=== PATIENT | female | born 1985 | race Caucasian/White ===

== ENCOUNTER 2016-11-28 08:28 | Emergency (ER) | payer MEDICAID ==
[2016-11-28] MEDS ORDERED: ONDANSETRON 4 MG TAB.RAPDIS PO ONE (09:56)
[2016-11-28] MEDS ORDERED: OXYCODONE-ACETAMINOPHEN 5-325 MG TABLET PO ONE (09:56)
[2016-11-28] MEDS ORDERED: DEXAMETHASONE SOD PHOS INJ 10 MG/1 ML VIAL IM ONE (09:57)
--- NOTE | 2016-11-28 10:01 | ER Document Report ---
ED General - General Chief Complaint: Hip Pain Stated Complaint: HIP PAIN Time seen by provider: 09:58 Mode of Arrival: Ambulatory Information source: Patient Notes: This is a 31-year-old female with a history of migraines, sciatica and bursitis of the right hip. Patient presents to the emergency room with an exacerbation of her right hip pain over the last 5 days. She also complains of a migraine. Patient denies any fever, chills. She does endorse nausea without vomiting. Patient denies any recent injuries. Patient denies any photophobia or neck stiffness. Patient denies any urinary retention, urinary or fecal incontinence. Patient denies any sensory loss to the saddle area or to the lower extremities. TRAVEL OUTSIDE OF THE [place] IN LAST 30 DAYS: No - HPI Onset: Last week Onset/Duration: Gradual Quality of pain: Dull Severity: Moderate Pain Level: 2 Associated symptoms: Headache, Nausea. denies: Chills, Fever, Vomiting Exacerbated by: Movement Relieved by: Remaining still Similar symptoms previously: Yes Recently seen / treated by doctor: No - Related Data Allergies/Adverse Reactions: cyclobenzaprine HCl [From Flexeril] Allergy (Verified 11/28/16 08:36) fluoxetine HCl [From Prozac] Allergy (Verified 11/28/16 08:36) ibuprofen [Ibuprofen] Allergy (Verified 11/28/16 08:36) ketorolac tromethamine [From Toradol] Allergy (Verified 11/28/16 08:36) prochlorperazine edisylate [From Compazine] Allergy (Verified 11/28/16 08:36) prochlorperazine maleate [From Compazine] Allergy (Verified 11/28/16 08:36) promethazine HCl [From Phenergan] Allergy (Verified 11/28/16 08:36) tramadol HCl [From Ultram] Allergy (Verified 11/28/16 08:36) Past Medical History - General Information source: Patient - Social History Smoking Status: Current Every Day Smoker Cigarette use (# per day): Yes - 1 pack per day Chew tobacco use (# tins/day): No Frequency of alcohol use: None Drug Abuse: None Lives with: Family Family History: Reviewed & Not Pertinent Patient has suicidal ideation: No Patient has homicidal ideation: No Pulmonary Medical History: Reports: Hx Asthma - as a child Neurological Medical History: Reports: Hx Migraine Renal/ Medical History: Denies: Hx Peritoneal Dialysis Psychiatric Medical History: Reports: Hx Anxiety, Hx Bipolar Disorder, Hx Depression Past Surgical History: Reports: Hx Oral Surgery, Hx Tubal Ligation. Denies: Hx Pacemaker - Immunizations Hx Diphtheria, Pertussis, Tetanus Vaccination: Yes Review of Systems - Review of Systems Notes: Review of systems: Constitutional: Denies fever, chills. EENT: Denies ear pain, sinus tenderness, throat pain, throat swelling. Cardiovascular: Denies chest pain, palpitations, dyspnea or edema. Respiratory: Denies wheezing, cough, hemoptysis. Abdomen: Denies abdominal pain, nausea, vomiting, diarrhea. Denies BRBPR or melena. Genitourinary: Denies dysuria, pyuria, hematuria, flank pain. Musculoskeletal: See H&P. Neurologic: Positive for headache. Denies photophobia, neck stiffness, weakness. Denies loss of bowel or bladder function. Denies saddle anesthesia. Skin: Denies rash, lesions. Physical Exam - Vital signs Vitals: Temp Pulse Resp BP Pulse Ox 98.0 F 72 16 132/70 H 98 11/28/16 08:37 11/28/16 08:37 11/28/16 08:37 11/28/16 08:37 11/28/16 08:37 Notes: Physical exam: GENERAL: 31-year-old female, alert and oriented 3, no acute distress. HEAD: Atraumatic, normocephalic. EYES: Pupils equal round and reactive to light, extraocular movements intact, sclera anicteric, conjunctiva are normal. ENT: TMs normal, nares patent, oropharynx clear without exudates. Moist mucous membranes. NECK: Normal range of motion, supple without lymphadenopathy or JVD. LUNGS: Breath sounds clear to auscultation bilaterally and equal. No wheezes rales or rhonchi. HEART: Regular rate and rhythm without murmurs, rubs or gallops. ABDOMEN: Soft, normoactive bowel sounds. No tenderness to palpation. No guarding, no rebound. No masses appreciated. Back: Patient does have right paraspinal lower lumbar tenderness to palpation. There is no bony focal tenderness. There is no crepitus, step offs or skin changes in that area. EXTREMITIES: Patient does have pain with range of motion of the right hip. She does have some tenderness to palpation over the right greater trochanter. There is no erythema, warmth or swelling over the area. Distal sensation to the right lower extremity is good. The Refill to the right lower extremity is good. NEUROLOGICAL: Cranial nerves II through XII grossly intact. Normal speech, motor 5 over 5, the patient's neck is supple. She has no photophobia. PSYCH: Normal mood, normal affect. SKIN: Warm, Dry, normal turgor, no rashes or lesions noted. Course - Vital Signs Vital signs: Temp Pulse Resp BP Pulse Ox 98.0 F 72 16 132/70 H 98 11/28/16 08:37 11/28/16 08:37 11/28/16 08:37 11/28/16 08:37 11/28/16 08:37 - Diagnostic Test Radiology reviewed: Image reviewed, Reports reviewed - X-rays of the lumbar spine and right hip show no acute bony injury Discharge - Discharge Clinical Impression: radiculopathy, Pre-hypertension, migraine Condition: Stable Disposition: HOME, SELF-CARE Instructions: Radiculopathy ([facility]), Bursitis ([facility]), Oral Narcotic Medication ( [facility]) Additional Instructions: Recommendations: When you're able, follow-up with Dr. Robertson of orthopedics. Take Medrol Dosepak as prescribed. Take the Percocet as needed. See the narcotic instruction sheet. Take Zofran for nausea. The pain medicine you're taking prescribed as a narcotic. There are several important things you should know about this medicine: 1. This medicine contains Tylenol: It is important that you do not take Tylenol (or acetaminophen) while on this medicine. Tylenol is metabolized by the liver and taking too much Tylenol (acetaminophen) can lay to liver damage and even liver failure. 2. Taking narcotics for too long can lead to physical and mental dependence. Take this medicine only if really needed and in the lowest quantity to achieve pain relief. 3. Do not drink alcohol while on this medicine. Alcohol interacts with narcotics and the combination can be dangerous. 4. Do not drive or operate machinery while on this medicine. 5. Narcotics do cause constipation, so drink plenty of fluids and daily stool softeners. Regarding Blood Pressure: Your blood pressure was noted to be greater than 120/80 at least once in the emergency room today. It is recommended that you follow-up with her primary care physician in the next week for repeat blood pressure check. The Centers for Medicare and Medicaid Services has specific recommendations regarding a person's blood pressure. There are several lifestyle modifications that are recommended in order to help lower your blood pressure. These include: Quitting smoking if you smoke. Reducing the amount of sodium in your diet. Getting regular exercise Limiting alcohol to no more than 2 drinks a day for men and one drink a day for women. Eating a healthy diet, including more fruits and vegetables, low fat dairy products, less saturated and total fat. Losing weight if you are overweight. FOLLOW-UP: Call your doctor's office and let them know your blood pressure was elevated and you were advised to get your blood pressure checked in the above time-line. If you are unable to get into your doctor's office in this time period, you can follow-up with a new physician (I have left the numbers below for a few primary care doctors affiliated with this [facility]) or return to the ER. PRIMARY CARE PHYSICIANS: Dr. Sonia Pacheco [address], [place] [address] [phone] Dr Heller Address: [address] [place] [address] , [place] [address] Dr Hanson Address: [address] [place] [address] , [place] [address] Prescriptions: Methylprednisolone [Medrol 4 mg Dosepack 21 Tab/Pack] 4 mg PO ASDIR PRN #21 tab.ds.pk PRN Reason: Ondansetron HCl [Zofran 4 mg Tablet] 1 - 2 tab PO Q4H PRN #10 tablet PRN Reason: Oxycodone HCl/Acetaminophen [Percocet 5-325 mg Tablet] 1 - 2 tab PO ASDIR PRN # 25 tablet PRN Reason: Forms: Elevated Blood Pressure Referrals: DAVID ROBERTSON MD [ACTIVE STAFF] - Follow up as needed
[2016-11-28] MEDS ORDERED: ONDANSETRON ODT 4 MG TAB (6 TAB/DSPK) PO PRN (12:15)
[2016-11-28 12:34] VITALS: BP 113/80
== END 2016-11-28 12:30 | disposition home or self-care (01) ==
LOC: ER 08:28
DX: M54.10 Radiculopathy, site unspecified (principal); M25.551 Pain in right hip; R03.0 Elevated blood-pressure reading, without diagnosis of hypertension; G43.909 Migraine, unspecified, not intractable, without status migrainosus; F17.210 Nicotine dependence, cigarettes, uncomplicated
CPT/HCPCS: 99283; 96372; 73502; 72110; S0119; J1100

== ENCOUNTER → 2016-12-22 | Outpatient (CLI) | payer MEDICAID | LOC: RAD 11:42 | PROVIDERS: ATTEND Family Medicine | DX: M25.552 Pain in left hip (principal) ==

== ENCOUNTER 2017-01-08 10:22 | Emergency (ER) | payer MEDICAID ==
[2017-01-08] MEDS ORDERED: ONDANSETRON 4 MG TAB.RAPDIS PO ONE (10:54)
[2017-01-08] MEDS ORDERED: ACETAMINOPHEN WITH CODEINE #3 TABLET PO ONE (10:55)
--- NOTE | 2017-01-08 10:56 | ER Document Report ---
HPI - HPI Patient complains to provider of: headache, sore throat Onset: Other - 3 days Onset/Duration: Gradual Quality of pain: Pressure Pain Level: 4 Context: Patient complains of headache across forehead area, left ear pain for the past 3 days. Patient reports sore throat that started yesterday. Patient does complain of some chills but no fever. Patient does report that her son has been sick recently with upper respiratory symptoms. Patient does report chronic frequent headaches occurring about 3-4 times a week. Patient does have an appointment with her doctor in 2 days. Patient states this headache is typical of her frequent headaches that she gets. Patient denies any head injury. Patient denies any IV drug use. Associated Symptoms: Chills, Earache, Headache, Sore throat. denies: Fever, Vomiting, Rhinnorhea Exacerbated by: Denies Relieved by: Denies Similar symptoms previously: Yes Recently seen / treated by doctor: No - ROS ROS below otherwise negative: Yes Systems Reviewed and Negative: Yes All other systems reviewed and negative - CONSTITUTIONAL Constitutional: REPORTS: Chills. DENIES: Fever - EENT EENT: REPORTS: Sore Throat, Ear Pain - NEURO Neurology: REPORTS: Headache. DENIES: Weakness - RESPIRATORY Respiratory: DENIES: Coughing - GASTROINTESTINAL Gastrointestinal: DENIES: Nausea, Patient vomiting, Diarrhea - REPRODUCTIVE Reproductive: DENIES: : - MUSCULOSKELETAL Musculoskeletal: DENIES: Extremity pain, Back Pain, Neck Pain - DERM Skin Color: Normal Skin Problems: None Past Medical History - General Information source: Patient - Social History Smoking Status: Never Smoker Drug Abuse: None Occupation: food and beverage coordinator Lives with: Family Family History: Reviewed & Not Pertinent Patient has suicidal ideation: No Patient has homicidal ideation: No Pulmonary Medical History: Reports: Hx Asthma - as a child Neurological Medical History: Reports: Hx Migraine Renal/ Medical History: Denies: Hx Peritoneal Dialysis Psychiatric Medical History: Reports: Hx Anxiety, Hx Bipolar Disorder, Hx Depression Past Surgical History: Reports: Hx Oral Surgery, Hx Tubal Ligation. Denies: Hx Pacemaker - Immunizations Hx Diphtheria, Pertussis, Tetanus Vaccination: Yes Vertical Provider Document - CONSTITUTIONAL Agree With Documented VS: Yes Exam Limitations: No Limitations General Appearance: WD/WN, No Apparent Distress - INFECTION CONTROL TRAVEL OUTSIDE OF THE [place] IN LAST 30 DAYS: No - HEENT HEENT: Atraumatic, Normocephalic, PERRLA, Pharyngeal Tenderness. negative: Pharyngeal Exudate, Pharyngeal Erythema, Tympanic Membrane Red, Tympanic Membrane Bulging - NECK Neck: Normal Inspection, Supple, Other - No meningismus. negative: Lymphadenopathy-Left, Lymphadenopathy-Right - RESPIRATORY Respiratory: Breath Sounds Normal, No Respiratory Distress, Chest Non-Tender O2 Sat by Pulse Oximetry: 100 - CARDIOVASCULAR Cardiovascular: Regular Rate, Regular Rhythm, No Murmur - BACK Back: Normal Inspection. negative: CVA Tenderness-Right, CVA Tenderness-Left - MUSCULOSKELETAL/EXTREMETIES Musculoskeletal/Extremeties: MAEW, FROM - NEURO Level of Consciousness: Awake, Alert, Appropriate Motor/Sensory: No Motor Deficit - DERM Integumentary: Warm, Dry, No Rash Course - Re-evaluation Re-evalutation: 01/08/17 11:51 Patient reports that headache pain is improved as well as nausea. Discussed worsening signs or symptoms that patient should return immediately for. Patient advised that she will need to see a neurologist for further evaluation of her chronic headaches. Patient verbalized understanding agrees with treatment plan.The patient presents with headache without signs of SURGICAL SERVICES ASSISTANT bleed, stroke, infection, or other serious etiology. The patient is neurologically intact. Given the extremely low risk of these diagnoses further testing and evaluation for these possibilities does not appear to be indicated at this time. The patient has been instructed to return if the symptoms worsen or change in any way. - Vital Signs Vital signs: Temp Pulse Resp BP Pulse Ox 97.9 F 77 16 134/91 H 100 01/08/17 10:25 01/08/17 10:25 01/08/17 10:25 01/08/17 10:25 01/08/17 10:25 Discharge - Discharge Clinical Impression: Sore throat Headache Qualifiers: Headache type: unspecified Headache chronicity pattern: chronic headache Intractability: not intractable Qualified Code(s): R51 - Headache Condition: Stable Disposition: HOME, SELF-CARE Instructions: Sore Throat ([facility]), Headache ([facility]), Nausea or Vomiting, Nonspecific ([facility]) Additional Instructions: Return immediately for any new or worsening symptoms Followup with your primary care provider, call tomorrow to make a followup appointment Stay well-hydrated Follow-up with a neurologist for further evaluation of your chronic headache pain Prescriptions: Acetaminophen with Codeine [Acetaminophen-Cod #3 Tablet] 1 each PO Q6 PRN #10 tablet PRN Reason: Ondansetron HCl [Zofran 4 mg Tablet] 1 - 2 tab PO Q6 PRN #15 tablet PRN Reason: Forms: Return to Work Referrals: MICHELLE CHARLES MD [ACTIVE STAFF] - Follow up in 3-5 days
[2017-01-08 12:10] VITALS: BP 126/73
== END 2017-01-08 12:08 | disposition home or self-care (01) ==
LOC: ER 10:22
DX: R51 Headache (principal); H92.02 Otalgia, left ear; J02.9 Acute pharyngitis, unspecified; R68.83 Chills (without fever); R11.0 Nausea
CPT/HCPCS: 99283; 87070; 87880; S0119

== ENCOUNTER 2017-01-28 13:17 | Emergency (ER) | payer MEDICAID ==
[2017-01-28 13:21] VITALS: BP 136/97
--- NOTE | 2017-01-28 13:35 | ER Document Report ---
ED Medical Screen (RME) - General TRAVEL OUTSIDE OF THE [place]. IN LAST 30 DAYS: No <DOMINIK LINDSEY - Last Filed: 01/28/17 13:34> - General Information source: Patient - HPI Onset: Just prior to arrival Quality of pain: No pain Associated Symptoms: None Exacerbated by: Denies Similar symptoms previously: Yes <SHIREEN LIND - Last Filed: 01/28/17 15:09> - General Chief Complaint: Headache Stated Complaint: HEADACHE,NAUSEA Time Seen by Provider: 01/28/17 13:22 Notes: 31-year-old female patient complains onset of migraine headache last night, got worse today about noon. She reports nausea vomiting. Also complains of pain in the ribs. I have greeted and performed a rapid initial assessment of this patient. A comprehensive ED assessment and evaluation of the patient, analysis of test results and completion of the medical decision making process will be conducted by additional ED providers. (DOMINIK LINDSEY) - Related Data Allergies/Adverse Reactions: cyclobenzaprine HCl [From Flexeril] Allergy (Verified 01/28/17 13:21) fluoxetine HCl [From Prozac] Allergy (Verified 01/28/17 13:21) ibuprofen [Ibuprofen] Allergy (Verified 01/28/17 13:21) ketorolac tromethamine [From Toradol] Allergy (Verified 01/28/17 13:21) prochlorperazine edisylate [From Compazine] Allergy (Verified 01/28/17 13:21) prochlorperazine maleate [From Compazine] Allergy (Verified 01/28/17 13:21) promethazine HCl [From Phenergan] Allergy (Verified 01/28/17 13:21) tramadol HCl [From Ultram] Allergy (Verified 01/28/17 13:21) Past Medical History - Social History Chew tobacco use (# tins/day): No Frequency of alcohol use: Occasional Drug Abuse: None Pulmonary Medical History: Reports: Hx Asthma - as a child Neurological Medical History: Reports: Hx Migraine Renal/ Medical History: Denies: Hx Peritoneal Dialysis Psychiatric Medical History: Reports: Hx Anxiety, Hx Bipolar Disorder, Hx Depression Past Surgical History: Reports: Hx Oral Surgery, Hx Tubal Ligation. Denies: Hx Pacemaker - Immunizations Hx Diphtheria, Pertussis, Tetanus Vaccination: Yes <CÉSARKAIN CandelariaDOMINIK - Last Filed: 01/28/17 13:34> - General Information source: Patient - 31-year-old female presents to the emergency room today stating she had a migraine behind the left eye she has history of migraines has been feels similar. <SHIREEN LIND - Last Filed: 01/28/17 15:09> Review of Systems - Review of Systems Constitutional: No symptoms reported EENT: No symptoms reported Cardiovascular: No symptoms reported Respiratory: No symptoms reported Gastrointestinal: No symptoms reported Genitourinary: No symptoms reported Female Genitourinary: No symptoms reported Musculoskeletal: No symptoms reported Skin: No symptoms reported Hematologic/Lymphatic: No symptoms reported Neurological/Psychological: No symptoms reported <SHIREEN LIND - Last Filed: 01/28/17 15:09> Physical Exam - Vital signs Interpretation: Normal - General General appearance: Appears well, Alert - HEENT Head: Normocephalic, Atraumatic Eyes: Normal Pupils: PERRL - Respiratory Respiratory status: No respiratory distress Chest status: Nontender Breath sounds: Normal Chest palpation: Normal - Cardiovascular Rhythm: Regular Heart sounds: Normal auscultation Murmur: No - Abdominal Inspection: Normal Distension: No distension Bowel sounds: Normal Tenderness: Nontender Organomegaly: No organomegaly - Back Back: Normal, Nontender - Extremities General upper extremity: Normal inspection, Nontender, Normal color, Normal ROM , Normal temperature General lower extremity: Normal inspection, Nontender, Normal color, Normal ROM , Normal temperature, Normal weight bearing. No: Shanda's sign - Neurological Neuro grossly intact: Yes Cognition: Normal Orientation: AAOx4 Aamir Coma Scale Eye Opening: Spontaneous Aamir Coma Scale Verbal: Oriented [place] Coma Scale Motor: Obeys Commands Aamir Coma Scale Total: 15 Speech: Normal Motor strength normal: LUE, RUE, LLE, RLE Sensory: Normal - Psychological Associated symptoms: Normal affect, Normal mood - Skin Skin Temperature: Warm Skin Moisture: Dry Skin Color: Normal <SHIREEN LIND - Last Filed: 01/28/17 15:09> - Vital signs Vitals: Temp Pulse Resp BP Pulse Ox 97.6 F 83 14 136/97 H 96 01/28/17 13:18 01/28/17 13:18 01/28/17 13:18 01/28/17 13:18 01/28/17 13:18 Course <DOMINIK LINDSEY - Last Filed: 01/28/17 13:34> - Diagnostic Test Radiology reviewed: Image reviewed, Reports reviewed <SHIREEN LIND - Last Filed: 01/28/17 15:09> - Re-evaluation Re-evalutation: 01/28/17 15:06 No fever no nausea no vomiting C2 through 12 intact pupils equally round react light and accommodation. No petechiae. (SHIREEN LIND) - Vital Signs Vital signs: Temp Pulse Resp BP Pulse Ox 97.6 F 83 14 136/97 H 96 01/28/17 13:18 01/28/17 13:18 01/28/17 13:18 01/28/17 13:18 01/28/17 13:18 Doctor's Discharge <DOMINIK LINDSEY - Last Filed: 01/28/17 13:34> <SHIREEN LIND - Last Filed: 01/28/17 15:09> - Discharge Clinical Impression: Migraine Qualifiers: Migraine type: with aura Status migrainosus presence: without status migrainosus Intractability: intractable Qualified Code(s): G43.119 - Migraine with aura, intractable, without status migrainosus Disposition: HOME, SELF-CARE Instructions: Joanie ([facility]) Additional Instructions: migraine Headache The physician does not feel that the headache you are experiencing has a serious underlying cause. Most headaches are due to emotional stress, with resultant muscle tension (tension headache). Occasionally, headaches are secondary to changes in the blood vessels of the scalp (vascular headache and migraine headache). Sometimes, a headache is the first symptom of another developing illness, such as a viral infection. You have no evidence of stroke, bleeding, meningitis, or other serious cause of your headache. The treatment of headaches varies with the severity and cause of the pain. Not all headaches need pain shots. In fact, there is evidence that using narcotics for headaches may make them worse in the long run. The physician will determine the therapy that's in your best interest. If you develop a fever, if the headache is different from any you've previously experienced, or if the headache progressively worsens, then call your physician at once or go to the emergency room.
--- NOTE | 2017-01-28 14:40 | RADIOLOGY REPORT (SQ) ---
EXAM DESCRIPTION: CT HEAD WITHOUT COMPLETED DATE/TIME: 01/28/2017 2:28 pm REASON FOR STUDY: PAIN DIFFEREN THAN USSUAL SEQUELLA COMPARISON: 06/15/2016. TECHNIQUE: Axial images acquired through the brain without intravenous contrast. Images reviewed wi th bone, brain and subdural windows. Images stored on PACS. All CT scanners at this facility use dose modulation, iterative reconstruction, and/or weight based d osing when appropriate to reduce radiation dose to as low as reasonably achievable (ALARA). [facility]: Dose Right [facility]: CareDose [facility]: Dose Right [facility]: Teradose 4D [facility]: Loco2 RADIATION DOSE: 64.61 mGy. LIMITATIONS: None. FINDINGS: VENTRICLES: Normal size and contour. CEREBRUM: No masses. No hemorrhage. No midline shift. Normal benitez/white matter differentiation. N o evidence for acute infarction. CEREBELLUM: No masses. No hemorrhage. No alteration of density. No evidence for acute infarction. EXTRAAXIAL SPACES: No fluid collections. No masses. ORBITS AND GLOBE: No intra- or extraconal masses. Normal contour of globe without masses. CALVARIUM: No fracture. PARANASAL SINUSES: Mucosal nodule in the left maxillary sinus. Mucous membrane thickening in the eth moid sinuses. SOFT TISSUES: No mass or hematoma. OTHER: No other significant finding. IMPRESSION: NORMAL BRAIN CT WITHOUT CONTRAST. CHRONIC SINUS DISEASE. TECHNICAL DOCUMENTATION: JOB ID: [id number] Quality ID # [id number]: Final reports with documentation of one or more dose reduction techniques (e.g., Au tomated exposure control, adjustment of the mA and/or kV according to patient size, use of iterative reconstruction technique) 2010 [employer]- All Rights Reserved
[2017-01-28] MEDS ORDERED: METHOCARBAMOL 500 MG TABLET PO ONE (15:09)
== END 2017-01-28 15:39 | disposition home or self-care (01) ==
LOC: ER 13:17
DX: G43.119 Migraine with aura, intractable, without status migrainosus (principal); R11.2 Nausea with vomiting, unspecified; R07.81 Pleurodynia; Z88.8 Allergy status to other drugs, medicaments and biological substances; Z88.6 Allergy status to analgesic agent; Z88.5 Allergy status to narcotic agent
CPT/HCPCS: 70450; 99283

== ENCOUNTER 2017-03-24 18:59 | Emergency (ER) | payer MEDICAID ==
--- NOTE | 2017-03-24 19:27 | ER Document Report ---
ED Medical Screen (RME) - General Chief Complaint: Chest Pain Stated Complaint: CHEST DISCOMFORT, NUMBNESS Time Seen by Provider: 03/24/17 19:16 Mode of Arrival: Ambulatory Information source: Patient TRAVEL OUTSIDE OF THE [place] IN LAST 30 DAYS: No - HPI Onset: Just prior to arrival - 1800 HRS. Onset/Duration: Sudden Context: WAS LYING DOWN Quality of pain: Other - "SUFFOCATING, HEAVINESS" Severity: Moderate Associated Symptoms: Dizzy/lightheaded, Shortness of breath. denies: Chills, Cough (productive), Fever, Nausea, Sweating Exacerbated by: Supine Relieved by: Sitting, Standing Similar symptoms previously: No Recently seen / treated by doctor: No - Related Data Smoking: Cigarettes, Less than 1 pack/day Frequency of alcohol use: Occasional Drug Abuse: None Allergies/Adverse Reactions: cyclobenzaprine HCl [From Flexeril] Allergy (Verified 01/28/17 13:21) fluoxetine HCl [From Prozac] Allergy (Verified 01/28/17 13:21) ibuprofen [Ibuprofen] Allergy (Verified 01/28/17 13:21) ketorolac tromethamine [From Toradol] Allergy (Verified 01/28/17 13:21) prochlorperazine edisylate [From Compazine] Allergy (Verified 01/28/17 13:21) prochlorperazine maleate [From Compazine] Allergy (Verified 01/28/17 13:21) promethazine HCl [From Phenergan] Allergy (Verified 01/28/17 13:21) tramadol HCl [From Ultram] Allergy (Verified 01/28/17 13:21) Past Medical History - General Information source: Patient - Social History Chew tobacco use (# tins/day): No Frequency of alcohol use: Rare Drug Abuse: None Lives with: Family Family history: None - Past Medical History Cardiac Medical History: Reports: None Pulmonary Medical History: Reports: Hx Asthma - as a child Neurological Medical History: Reports: Hx Migraine Endocrine Medical History: Reports: None Renal/ Medical History: Reports: None. Denies: Hx Peritoneal Dialysis Malignancy Medical History: Reports: None GI Medical History: Reports: None Musculoskeltal Medical History: Reports Hx Arthritis - LOW BACK Psychiatric Medical History: Reports: Hx Anxiety, Hx Bipolar Disorder, Hx Depression Past Surgical History: Reports: Hx Oral Surgery, Hx Tubal Ligation. Denies: Hx Pacemaker - Immunizations Hx Diphtheria, Pertussis, Tetanus Vaccination: Yes Review of Systems - Review of Systems Constitutional: Weakness. denies: Chills, Diaphoresis, Fever EENT: No symptoms reported Cardiovascular: See HPI Respiratory: See HPI Gastrointestinal: No symptoms reported Genitourinary: No symptoms reported Musculoskeletal: See HPI Skin: No symptoms reported Neurological/Psychological: No symptoms reported Physical Exam - Vital signs Vitals: Temp Pulse Resp BP Pulse Ox 98 F 80 20 115/77 99 03/24/17 19:09 03/24/17 19:09 03/24/17 19:03/24/17 19:03/24/17 19:09 Interpretation: Normal - General General appearance: Appears well, Alert In distress: None - HEENT Head: Normocephalic Eyes: Normal Conjunctiva: Normal Ears: Normal Nasal: Normal Mouth/Lips: Normal Mucous membranes: Normal - Respiratory Respiratory status: No respiratory distress Breath sounds: Normal - Cardiovascular Rhythm: Regular Heart sounds: Normal auscultation Murmur: No - Abdominal Inspection: Normal Distension: No distension - Back Back: Normal - Extremities General upper extremity: Normal inspection General lower extremity: Normal inspection. No: Tender, Edema - Neurological Neuro grossly intact: Yes Cognition: Normal Orientation: AAOx4 - Psychological Associated symptoms: Normal affect, Normal mood - Skin Skin Temperature: Warm Skin Moisture: Dry Skin Color: Normal Skin Turgor: Elastic Course - Vital Signs Vital signs: Temp Pulse Resp BP Pulse Ox 98 F 80 20 115/77 99 03/24/17 19:09 03/24/17 19:09 03/24/17 19:03/24/17 19:03/24/17 19:09
[2017-03-24 19:43] LABS: ABSOLUTE BASOPHILS # (AUTO) 0.1 10^3/uL (0.0-0.2); ABSOLUTE EOSINOPHILS # (AUTO) 0.2 10^3/uL (0.0-0.6); ABSOLUTE LYMPHOCYTES (AUTO) 2.6 10^3/uL (0.5-4.7); ABSOLUTE MONOCYTES (AUTO) 0.9 10^3/uL (0.1-1.4); BASOPHILS % (AUTO) 0.8 % (0-2); EOSINOPHILS % (AUTO) 1.4 % (0-6); HEMATOCRIT 39.6 % (36.0-47.0); HEMOGLOBIN 13.5 g/dL (12.0-15.5); HGB HCT DIFFERENCE 0.9; LYMPHOCYTES % (AUTO) 21.8 % (13-45); MEAN CORPUSCULAR HEMOGLOBIN 31.9 pg (27.0-33.4); MEAN CORPUSCULAR HGB CONC 34.1 g/dL (32.0-36.0); MEAN CORPUSCULAR VOLUME 94 fl (80-97); RED BLOOD COUNT 4.23 10^6/uL (3.72-5.28); RED CELL DISTRIBUTION WIDTH 12.5 % (11.5-14.0); WHITE BLOOD COUNT 11.8 10^3/uL (4.0-10.5)
[2017-03-24 19:49] LABS: APPEARANCE,URINE SLIGHTLY-CLOUDY; BILIRUBIN,URINE NEGATIVE (NEGATIVE); GLUCOSE, URINE NEGATIVE (NEGATIVE); KETONES,URINE NEGATIVE (NEGATIVE); LEUKOCYTE ESTERASE,URINE SMALL (NEGATIVE); NITRITE,URINE NEGATIVE (NEGATIVE); PROTEIN,URINE NEGATIVE (NEGATIVE); URINE SPECIFIC GRAVITY 1.025
[2017-03-24 19:58] LABS: ALANINE AMINOTRANSFERASE 38 U/L (9-52); ALBUMIN 4.3 g/dL (3.5-5.0); ALKALINE PHOSPHATASE 57 U/L (38-126); ANION GAP 11 (5-19); ASPARTATE AMINO TRANSFERASE 24 U/L (14-36); BILIRUBIN,DIRECT 0.3 mg/dL (0.0-0.4); BILIRUBIN,TOTAL 0.7 mg/dL (0.2-1.3); BLOOD UREA NITROGEN 12 mg/dL (7-20); CALCIUM 9.9 mg/dL (8.4-10.2); CARBON DIOXIDE 23 mmol/L (22-30); CHLORIDE 107 mmol/L (98-107); CREATINE KINASE 79 U/L (30-135); CREATININE RESULT 0.73 mg/dL (0.52-1.25); GLUCOSE 89 mg/dL (75-110); POTASSIUM 4.1 mmol/L (3.6-5.0); SODIUM 140.9 mmol/L (137-145); TOTAL PROTEIN 7.8 g/dL (6.3-8.2)
[2017-03-24 20:12] LABS: CREATINE KINASE MB < 0.22 ng/mL (<4.55); TROPONIN I < 0.012 ng/mL
--- NOTE | 2017-03-24 20:28 | RADIOLOGY REPORT (SQ) ---
EXAM DESCRIPTION: CHEST PA/LAT COMPLETED DATE/TIME: 03/24/2017 7:57 pm REASON FOR STUDY: CHEST PAIN, PALPITATIONS, NEAR-SYNCOPE COMPARISON: None. EXAM PARAMETERS: NUMBER OF VIEWS: two views TECHNIQUE: Digital Frontal and Lateral radiographic views of the chest acquired. RADIATION DOSE: NA LIMITATIONS: none FINDINGS: LUNGS AND PLEURA: No opacities, masses or pneumothorax. No pleural effusion. MEDIASTINUM AND HILAR STRUCTURES: No masses or contour abnormalities. HEART AND VASCULAR STRUCTURES: Heart normal size. No evidence for failure. BONES: No acute findings. HARDWARE: None in the chest. OTHER: No other significant finding. IMPRESSION: NO SIGNIFICANT RADIOGRAPHIC FINDING IN THE CHEST. TECHNICAL DOCUMENTATION: JOB ID: [id number] [employer]- All Rights Reserved
[2017-03-24] MEDS ORDERED: METOCLOPRAMIDE HCL ORAL SOLN 10 MG/10 ML UDCUP PO ONE (20:48)
[2017-03-24] MEDS ORDERED: LIDOCAINE 2% VISCOUS SOLN 20 ML UDCUP PO ONE (20:48)
[2017-03-24] MEDS ORDERED: MAG HYDROX/AL HYDROX/SIMETH SUSP 30 ML UDCUP PO ONE (20:48)
--- NOTE | 2017-03-24 20:50 | ER Document Report ---
ED General - General Chief Complaint: Chest Pain Stated Complaint: CHEST DISCOMFORT, NUMBNESS Time Seen by Provider: 03/24/17 19:16 Mode of Arrival: Ambulatory Notes: Patient is a 31-year-old female who presents with multiple concerns but her primary concern appears to be in intermittent episodic chest pain that occurs mostly when she lies down. Patient states that she [employer] rest night she began to develop a diffuse chest wall pressure and burning. Nothing improves or worsens that pain. She has recurrently had the symptoms over the last 2 weeks and decided to get evaluated today. Patient also relates a history of frequent intermittent paresthesias in the entirety of her body but denies that this is the reason she came to the emergency department today. She has not seen her primary care doctor regarding these concerns. Does note that she was recently started on a buprenorphine transdermal patch and the medication was recently increased in dosing and she feels that this may be causing her symptoms. She did discontinue this medication herself today due to these concerns. She denies any shortness of breath, nausea, vomiting, diaphoresis or radiation of the pain. TRAVEL OUTSIDE OF THE [place] IN LAST 30 DAYS: No - Related Data Allergies/Adverse Reactions: cyclobenzaprine HCl [From Flexeril] Allergy (Verified 01/28/17 13:21) fluoxetine HCl [From Prozac] Allergy (Verified 01/28/17 13:21) ibuprofen [Ibuprofen] Allergy (Verified 01/28/17 13:21) ketorolac tromethamine [From Toradol] Allergy (Verified 01/28/17 13:21) prochlorperazine edisylate [From Compazine] Allergy (Verified 01/28/17 13:21) prochlorperazine maleate [From Compazine] Allergy (Verified 01/28/17 13:21) promethazine HCl [From Phenergan] Allergy (Verified 01/28/17 13:21) tramadol HCl [From Ultram] Allergy (Verified 01/28/17 13:21) Past Medical History - General Information source: Patient - Social History Smoking Status: Current Every Day Smoker Chew tobacco use (# tins/day): No Frequency of alcohol use: Rare Drug Abuse: None Lives with: Family Family History: Reviewed & Not Pertinent - Past Medical History Cardiac Medical History: Reports: None Pulmonary Medical History: Reports: Hx Asthma - as a child Neurological Medical History: Reports: Hx Migraine Endocrine Medical History: Reports: None Renal/ Medical History: Reports: None. Denies: Hx Peritoneal Dialysis Malignancy Medical History: Reports: None GI Medical History: Reports: None Musculoskeltal Medical History: Reports Hx Arthritis - LOW BACK Psychiatric Medical History: Reports: Hx Anxiety, Hx Bipolar Disorder, Hx Depression Past Surgical History: Reports: Hx Oral Surgery, Hx Tubal Ligation. Denies: Hx Pacemaker - Immunizations Hx Diphtheria, Pertussis, Tetanus Vaccination: Yes Review of Systems - Review of Systems Notes: Constitutional: Negative for fever. HENT: Negative for sore throat. Eyes: Negative for visual changes. Cardiovascular: Positive for chest pain. Respiratory: Negative for shortness of breath. Gastrointestinal: Negative for abdominal pain, vomiting or diarrhea. Genitourinary: Negative for dysuria. Musculoskeletal: Negative for back pain. Skin: Negative for rash. Neurological: Negative for headaches, weakness or numbness. 10 point ROS negative except as marked above and in HPI. Physical Exam - Vital signs Vitals: Temp Pulse Resp BP Pulse Ox 98 F 80 20 115/77 99 03/24/17 19:09 03/24/17 19:09 03/24/17 19:09 03/24/17 19:09 03/24/17 19:09 Interpretation: Normal Notes: PHYSICAL EXAMINATION: GENERAL: Well-appearing, well-nourished and in no acute distress. HEAD: Atraumatic, normocephalic. EYES: Pupils equal round and reactive to light, extraocular movements intact, sclera anicteric, conjunctiva are normal. ENT: nares patent, oropharynx clear without exudates. Moist mucous membranes. NECK: Normal range of motion, supple without lymphadenopathy LUNGS: Breath sounds clear to auscultation bilaterally and equal. No wheezes rales or rhonchi. HEART: Regular rate and rhythm without murmurs ABDOMEN: Soft, nontender, normoactive bowel sounds. No guarding, no rebound. No masses appreciated. EXTREMITIES: Normal range of motion, no pitting or edema. No cyanosis. NEUROLOGICAL: No focal neurological deficits. Moves all extremities spontaneously and on command. PSYCH: Normal mood, normal affect. SKIN: Warm, Dry, normal turgor, no rashes or lesions noted. Course - Re-evaluation Re-evalutation: 03/24/17 20:48 Presentation of chest pain in an otherwise well appearing patient. Low clinical suspicion for ACS given clinical history, exam, EKG without ST elevations or depressions, and negative initial troponin. HEART score less than or equal to 3. PE also seems unlikely given clinical history, absence of tachycardia or dyspnea. Patient is PERC criteria negative. CXR without evidence of pneumothorax or pneumonia. No widened mediastinum. Aortic dissection also seems unlikely given history, symmetric pulses, CXR, and vitals. HEART Score: History:0 EC Age:0 Risk Factors:1 Troponin:0 Total: 1 Chest pain in a patient without evidence of cardiac or other serious etiology on workup today. I discussed with patient that, based on their age, risk factors and emergency department testing today, the likelihood that their symptoms are related to a heart attack is very low (estimated risk of heart attack or over the next 30 days of less than 1%). The patient demonstrates decision making capacity and has verbalized an understanding of these risks to me. Based on this, the patient has chosen to follow-up as an outpatient. Usual chest pain return precautions reviewed. The patient states understanding and agreement with this plan. - Vital Signs Vital signs: Temp Pulse Resp BP Pulse Ox 98.2 F 82 20 120/65 99 03/24/17 21:29 03/24/17 21:29 03/24/17 21:29 03/24/17 21:29 03/24/17 21:29 - Laboratory Result Diagrams: 03/24/17 19:30 03/24/17 19:30 Laboratory results interpreted by me: 03/24/17 03/24/17 19:30 19:30 WBC 11.8 H Urine Urobilinogen 4.0 H Ur Leukocyte Esterase SMALL H - Diagnostic Test Radiology reviewed: Image reviewed, Reports reviewed Radiology results interpreted by me: 03/24/17 20:49 Chest x-ray: No acute pneumothorax or acute infiltrate - EKG Interpretation by Me Additional EKG results interpreted by me: 03/24/17 20:49 Normal sinus rhythm. Rate 72. No ST elevations or depressions. QTC is 399. Discharge - Discharge Clinical Impression: Chest pain Qualifiers: Chest pain type: unspecified Qualified Code(s): R07.9 - Chest pain, unspecified Condition: Good Disposition: HOME, SELF-CARE Additional Instructions: You were seen today for chest pain. The exact cause of your pain is unclear. However, based on your cardiac enzyme testing, chest x-ray, and EKG it does not appear that it is from an immediately life-threatening cause at this time. Please return to emergency department immediately if you have worsening of your chest pain, shortness of breath, vomiting, become unable to exert yourself due to pain or difficulty breathing, you pass out, or have any pain that radiates into your arms, jaw, or back. Please also return if you have any additional symptoms that are concerning to you. Referrals: MIGUE HORTON MD [Primary Care Provider] - Follow up as needed
[2017-03-24 21:42] VITALS: BP 120/65
--- NOTE | 2017-03-25 13:39 | EKG REPORT ---
SEVERITY:- NORMAL ECG - SINUS RHYTHM : Confirmed by: Crystal Solano MD 25-Mar-2017 13:38:58
== END 2017-03-24 21:29 | disposition home or self-care (01) ==
LOC: ER 18:59
DX: R07.89 Other chest pain (principal); R20.0 Anesthesia of skin; F17.200 Nicotine dependence, unspecified, uncomplicated; Z88.8 Allergy status to other drugs, medicaments and biological substances; Z88.6 Allergy status to analgesic agent; Z88.5 Allergy status to narcotic agent
CPT/HCPCS: 93005; 99285; 36415; 82553; 82550; 85025; 80053; 81001; 84484; 71020; 93010; J3490 ×3

== ENCOUNTER 2017-05-26 01:56 | Emergency (ER) | payer MEDICAID | END 2017-05-26 02:45 | disposition left against medical advice (07) | LOC: ER 01:56 | DX: Z53.9 Procedure and treatment not carried out, unspecified reason (principal); R11.10 Vomiting, unspecified; R51 Headache ==

== ENCOUNTER 2017-10-02 09:23 | Emergency (ER) | payer MEDICAID ==
[2017-10-02] MEDS ORDERED: MORPHINE SULFATE 10 MG/ML INJ IV ONE (10:17)
--- NOTE | 2017-10-02 10:19 | ER Document Report ---
ED Medical Screen (RME) - General Chief Complaint: Post Surgical Pain Stated Complaint: BACK PAIN Time Seen by Provider: 10/02/17 10:14 Mode of Arrival: Ambulatory Information source: Patient Notes: Patient is a 32 year old female presenting to the emergency department complaining of lower back pain. Patient states she had a laminectomy on 2017 and states she has been in pain since her surgery and it has progressively worsened. Patient states she was prescribed Percocett but they have not helped. Patient is not on any blood thinners. I have greeted and performed a rapid initial assessment of this patient. A comprehensive ED assessment and evaluation of the patient, analysis of test results and completion of the medical decision making process will be conducted by additional ED providers. TRAVEL OUTSIDE OF THE [place] IN LAST 30 DAYS: No - Related Data Allergies/Adverse Reactions: cyclobenzaprine HCl [From Flexeril] Allergy (Verified 10/02/17 09:25) fluoxetine HCl [From Prozac] Allergy (Verified 10/02/17 09:25) ibuprofen [Ibuprofen] Allergy (Verified 10/02/17 09:25) ketorolac tromethamine [From Toradol] Allergy (Verified 10/02/17 09:25) prochlorperazine edisylate [From Compazine] Allergy (Verified 10/02/17 09:25) prochlorperazine maleate [From Compazine] Allergy (Verified 10/02/17 09:25) promethazine HCl [From Phenergan] Allergy (Verified 10/02/17 09:25) tramadol HCl [From Ultram] Allergy (Verified 10/02/17 09:25) Past Medical History - Social History Chew tobacco use (# tins/day): No Frequency of alcohol use: None Drug Abuse: None Family history: None Pulmonary Medical History: Reports: Hx Asthma - as a child Neurological Medical History: Reports: Hx Migraine Renal/ Medical History: Denies: Hx Peritoneal Dialysis Musculoskeltal Medical History: Reports Hx Arthritis - LOW BACK Psychiatric Medical History: Reports: Hx Anxiety, Hx Bipolar Disorder, Hx Depression Past Surgical History: Reports: Hx Oral Surgery, Hx Orthopedic Surgery - lower back, Hx Tubal Ligation. Denies: Hx Pacemaker - Immunizations Hx Diphtheria, Pertussis, Tetanus Vaccination: Yes Physical Exam - Vital signs Vitals: Temp Pulse Resp BP Pulse Ox 98.5 F 99 18 124/68 98 10/02/17 09:27 10/02/17 09:27 10/02/17 09:27 10/02/17 09:27 10/02/17 09:27 - Notes Notes: GENERAL: Alert, interacts well. No acute distress. HEAD: Normocephalic, atraumatic. EYES: Pupils equal, round, and reactive to light. Extraocular movements intact. ENT: Oral mucosa moist, tongue midline. NECK: Full range of motion. Supple. Trachea midline. LUNGS: Clear to auscultation bilaterally, no wheezes, rales, or rhonchi. No respiratory distress. HEART: Regular rate and rhythm. No murmurs, gallops, or rubs. ABDOMEN: Soft, non-tender. Non-distended. Bowel sounds present in all 4 quadrants. EXTREMITIES: Moves all 4 extremities spontaneously. NEUROLOGICAL: Alert and oriented x3. Normal speech. PSYCH: Normal affect, normal mood. Tearful SKIN: Warm, dry, normal turgor. No rashes or lesions noted. BACK: Well appearing incision, no fluctuance, tender to palpation. Course - Vital Signs Vital signs: Temp Pulse Resp BP Pulse Ox 98.5 F 99 18 124/68 98 10/02/17 09:27 10/02/17 09:27 10/02/17 09:27 10/02/17 09:27 10/02/17 09:27 Scribe Documentation - Scribe Written by Juan:: Juan Araujo, 10/02/2017 10:28 acting as scribe for :: Mike
[2017-10-02 11:01] LABS: ABSOLUTE EOSINOPHILS # (AUTO) 0.3 10^3/uL (0.0-0.6); ABSOLUTE MONOCYTES (AUTO) 0.5 10^3/uL (0.1-1.4); ABSOLUTE NEUT (AUTO) 4.2 10^3/uL (1.7-8.2); BASOPHILS % (AUTO) 0.6 % (0-2); EOSINOPHILS % (AUTO) 3.2 % (0-6); HEMATOCRIT 38.3 % (36.0-47.0); HEMOGLOBIN 13.2 g/dL (12.0-15.5); LYMPHOCYTES % (AUTO) 37.3 % (13-45); MEAN CORPUSCULAR HEMOGLOBIN 32.1 pg (27.0-33.4); MEAN CORPUSCULAR HGB CONC 34.4 g/dL (32.0-36.0); MEAN CORPUSCULAR VOLUME 93 fl (80-97); MONOCYTES % (AUTO) 6.5 % (3-13); PLATELET COUNT 357 10^3/uL (150-450); RED CELL DISTRIBUTION WIDTH 12.8 % (11.5-14.0); SEGMENTED NEUTROPHILS % (AUTO) 52.4 % (42-78); TOTAL CELLS COUNTED % (AUTO) 100 %
[2017-10-02 11:09] LABS: APPEARANCE,URINE SLIGHTLY-CLOUDY; BILIRUBIN,URINE NEGATIVE (NEGATIVE); COLOR,URINE YELLOW; GLUCOSE, URINE NEGATIVE (NEGATIVE); KETONES,URINE NEGATIVE (NEGATIVE); LEUKOCYTE ESTERASE,URINE NEGATIVE (NEGATIVE); NITRITE,URINE NEGATIVE (NEGATIVE); PROTEIN,URINE NEGATIVE (NEGATIVE); URINE SPECIFIC GRAVITY 1.008; UROBILINOGEN,URINE NEGATIVE mg/dL (<2.0)
[2017-10-02 11:21] LABS: ALANINE AMINOTRANSFERASE 29 U/L (9-52); ALKALINE PHOSPHATASE 55 U/L (38-126); ANION GAP 5 (5-19); ASPARTATE AMINO TRANSFERASE 17 U/L (14-36); BILIRUBIN,DIRECT 0.2 mg/dL (0.0-0.4); BILIRUBIN,TOTAL 0.3 mg/dL (0.2-1.3); BLOOD UREA NITROGEN 9 mg/dL (7-20); CALCIUM 9.9 mg/dL (8.4-10.2); CARBON DIOXIDE 30 mmol/L (22-30); CHLORIDE 104 mmol/L (98-107); GLUCOSE 95 mg/dL (75-110); POTASSIUM 4.5 mmol/L (3.6-5.0); SODIUM 139.3 mmol/L (137-145)
--- NOTE | 2017-10-02 11:48 | RADIOLOGY REPORT (SQ) ---
EXAM DESCRIPTION: CT LUMBAR SPINE WITH COMPLETED DATE/TIME: 10/02/2017 11:09 am REASON FOR STUDY: spinal surgery 3 days ago, pain, warmth, r/o infec COMPARISON: None. TECHNIQUE: Axial images through the lumbar spine with sagittal and coronal reconstructions. Images saved to PACs. CONTRAST TYPE AND DOSE: 80 cc Isovue. RENAL FUNCTION: None required. The patient is less than 50 years old. LIMITATIONS: None. FINDINGS: There has been posterior decompression at L5-S1. Expected postsurgical changes in the adj acent soft tissues. No organized gas fluid collection. IMPRESSION: Expected postsurgical changes. No evidence of abscess. TECHNICAL DOCUMENTATION: JOB ID: [id number] [employer]- All Rights Reserved
--- NOTE | 2017-10-02 11:53 | ER Document Report ---
ED General - General Chief Complaint: Post Surgical Pain Stated Complaint: BACK PAIN Time Seen by Provider: 10/02/17 10:14 Mode of Arrival: Ambulatory Notes: 32-year-old female with a history of lumbar disc disease approximately 1 week status post lumbar decompression discectomy at L5 that Maria Elena presents for increasing back pain and "my scar feels feverish." She denies discharge. She denies systemic fever. She says she has intermittent tingling in her legs but that has been going on for months. She denies motor weakness. She is taking Percocet fives and is doubling up on them. She called her doctor's office and was told to come to the ER. TRAVEL OUTSIDE OF THE [place] IN LAST 30 DAYS: No - Related Data Allergies/Adverse Reactions: cyclobenzaprine HCl [From Flexeril] Allergy (Verified 10/02/17 09:25) fluoxetine HCl [From Prozac] Allergy (Verified 10/02/17 09:25) ibuprofen [Ibuprofen] Allergy (Verified 10/02/17 09:25) ketorolac tromethamine [From Toradol] Allergy (Verified 10/02/17 09:25) prochlorperazine edisylate [From Compazine] Allergy (Verified 10/02/17 09:25) prochlorperazine maleate [From Compazine] Allergy (Verified 10/02/17 09:25) promethazine HCl [From Phenergan] Allergy (Verified 10/02/17 09:25) tramadol HCl [From Ultram] Allergy (Verified 10/02/17 09:25) Past Medical History - General Information source: Patient - Social History Smoking Status: Current Every Day Smoker Chew tobacco use (# tins/day): No Smoking Education Provided: Yes - The patient ED visit today was directly related to their abuse of tobacco. Frequency of alcohol use: None Drug Abuse: None Family History: Reviewed & Not Pertinent Patient has suicidal ideation: No Patient has homicidal ideation: No Pulmonary Medical History: Reports: Hx Asthma - as a child Neurological Medical History: Reports: Hx Migraine Renal/ Medical History: Denies: Hx Peritoneal Dialysis Musculoskeltal Medical History: Reports Hx Arthritis - LOW BACK Psychiatric Medical History: Reports: Hx Anxiety, Hx Bipolar Disorder, Hx Depression Past Surgical History: Reports: Hx Oral Surgery, Hx Orthopedic Surgery - lower back, Hx Tubal Ligation. Denies: Hx Pacemaker - Immunizations Hx Diphtheria, Pertussis, Tetanus Vaccination: Yes Review of Systems - Review of Systems Notes: REVIEW OF SYSTEMS GEN: Denies fever, chills, weight loss ENT: Denies sore throat, nasal discharge, ear pain EYES: Denies blurry vision, eye pain, discharge CV: Denies chest pain, palpitations, edema RESP: Denies cough, shortness of breath, wheezing GI: Denies abdominal pain, nausea, vomiting, diarrhea MSK: Back pain, SKIN: Denies rash, skin lesions LYMPH: Denies swollen glands/lymph nodes NEURO: Remittent leg paresthesias, no saddle anesthesia or bowel or bladder dysfunction or motor weakness PSYCH: Denies depression, suicidal or homicidal ideation PHYSICAL EXAMINATION General: No acute distress, well-nourished Head: Atraumatic, normocephalic ENT: Mouth normal, oropharynx moist, no exudates or tonsillar enlargement Eyes: Conjunctiva normal, pupils equal, lids normal Neck: No JVD, supple, no guarding CVS: Normal rate, regular rhythm, no murmurs Resp: No resp distress, equal and normal breath sounds bilaterally GI: Nondistended, soft, no tenderness to palpation, no rebound or guarding Ext: No deformities, no edema, normal range of motion in upper and lower ext Back: Preserved range of motion. Minimal tenderness surrounding the incision which is in the midline. Skin: No rash, warm Lymphatic: No lymphadeopathy noted Neuro: Awake, alert. Face symmetric. GCS 15. Physical Exam - Vital signs Vitals: Temp Pulse Resp BP Pulse Ox 98.5 F 99 18 124/68 98 10/02/17 09:27 10/02/17 09:27 10/02/17 09:27 10/02/17 09:27 10/02/17 09:27 Course - Re-evaluation Re-evalutation: 10/02/17 12:19 Patient presents with postoperative back pain. She is a little bit of erythema around her incision but no expressible pus or surrounding cellulitis. Her neurologic exam is very normal. She had a CT and labs ordered at triage. Her CT scan does not show infection but normal postoperative stranding. Her neurologic exam does not suggest the need for an MRI or deep space infection presents. She has no white count. I spoke with her surgeon Dr. De Paz at [facility] who agrees but would like me to place her on Keflex. She inquired about postoperative pain control but she already has a prescription for Percocet and asked her to follow-up with her neurosurgeon about further narcotic prescriptions. Insert discharge - Vital Signs Vital signs: Temp Pulse Resp BP Pulse Ox 98.5 F 99 18 124/68 98 10/02/17 09:27 10/02/17 09:27 10/02/17 09:27 10/02/17 09:27 10/02/17 09:27 - Laboratory Result Diagrams: 10/02/17 10:49 10/02/17 10:49 - Diagnostic Test Radiology reviewed: Image reviewed, Reports reviewed Discharge - Discharge Clinical Impression: Postoperative back pain Condition: Good Disposition: HOME, SELF-CARE Instructions: Wound Infection ([facility]) Additional Instructions: I am placing you on antibiotics for your possible wound infection. I spoke with your surgeon who agrees with this plan and will see you in 2 days as scheduled. Please continue taking her pain medication. I am not able to prescribe additional pain medications or if you need this you should call your surgeon's office. Prescriptions: Cephalexin Monohydrate [Keflex 500 mg Capsule] 500 mg PO Q6H 5 Days capsule
[2017-10-02 12:34] VITALS: BP 120/62
== END 2017-10-02 12:34 | disposition home or self-care (01) ==
LOC: ER 09:23
DX: G89.18 Other acute postprocedural pain (principal); M54.9 Dorsalgia, unspecified; M51.36 Other intervertebral disc degeneration, lumbar region; R50.9 Fever, unspecified; Z79.899 Other long term (current) drug therapy; F17.200 Nicotine dependence, unspecified, uncomplicated; Z98.890 Other specified postprocedural states
CPT/HCPCS: 99284; 96374; 36415; 84703; 85025; 80053; 81001; 72132; J2270

== ENCOUNTER 2017-10-15 11:09 | Emergency (ER) | payer MEDICAID ==
--- NOTE | 2017-10-15 12:23 | ER Document Report ---
ED Medical Screen (RME) - General Chief Complaint: Numbness Stated Complaint: NUMBNESS IN BACK Time Seen by Provider: 10/15/17 12:19 Notes: pt had lumbar surg three weeks ago. She states she now has bilat "numbness" from lumbar down both legs with certain mvmts. pt called neurosurg and was referred to ED. TRAVEL OUTSIDE OF THE [place] IN LAST 30 DAYS: No - Related Data Allergies/Adverse Reactions: cyclobenzaprine HCl [From Flexeril] Allergy (Verified 10/02/17 09:25) fluoxetine HCl [From Prozac] Allergy (Verified 10/02/17 09:25) ibuprofen [Ibuprofen] Allergy (Verified 10/02/17 09:25) ketorolac tromethamine [From Toradol] Allergy (Verified 10/02/17 09:25) prochlorperazine edisylate [From Compazine] Allergy (Verified 10/02/17 09:25) prochlorperazine maleate [From Compazine] Allergy (Verified 10/02/17 09:25) promethazine HCl [From Phenergan] Allergy (Verified 10/02/17 09:25) tramadol HCl [From Ultram] Allergy (Verified 10/02/17 09:25) Past Medical History - Social History Frequency of alcohol use: None Family history: None Pulmonary Medical History: Reports: Hx Asthma - as a child Neurological Medical History: Reports: Hx Migraine Renal/ Medical History: Denies: Hx Peritoneal Dialysis Musculoskeltal Medical History: Reports Hx Arthritis - LOW BACK Psychiatric Medical History: Reports: Hx Anxiety, Hx Bipolar Disorder, Hx Depression Past Surgical History: Reports: Hx Oral Surgery, Hx Orthopedic Surgery - lower back, Hx Tubal Ligation. Denies: Hx Pacemaker - Immunizations Hx Diphtheria, Pertussis, Tetanus Vaccination: Yes Physical Exam - Vital signs Vitals: Temp Pulse Resp BP Pulse Ox 98.4 F 76 16 122/64 98 10/15/17 11:31 10/15/17 11:31 10/15/17 11:31 10/15/17 11:31 10/15/17 11:31 Course - Vital Signs Vital signs: Temp Pulse Resp BP Pulse Ox 98.4 F 76 16 122/64 98 10/15/17 11:31 10/15/17 11:31 10/15/17 11:31 10/15/17 11:31 10/15/17 11:31
[2017-10-15 13:05] LABS: ABSOLUTE BASOPHILS # (AUTO) 0.1 10^3/uL (0.0-0.2); ABSOLUTE EOSINOPHILS # (AUTO) 0.5 10^3/uL (0.0-0.6); ABSOLUTE MONOCYTES (AUTO) 0.7 10^3/uL (0.1-1.4); ABSOLUTE NEUT (AUTO) 2.9 10^3/uL (1.7-8.2); EOSINOPHILS % (AUTO) 5.7 % (0-6); HEMATOCRIT 39.7 % (36.0-47.0); HEMOGLOBIN 13.7 g/dL (12.0-15.5); LYMPHOCYTES % (AUTO) 48.9 % (13-45); MEAN CORPUSCULAR HEMOGLOBIN 32.2 pg (27.0-33.4); MEAN CORPUSCULAR HGB CONC 34.5 g/dL (32.0-36.0); MEAN CORPUSCULAR VOLUME 93 fl (80-97); MONOCYTES % (AUTO) 8.8 % (3-13); PLATELET COUNT 351 10^3/uL (150-450); RED BLOOD COUNT 4.25 10^6/uL (3.72-5.28); RED CELL DISTRIBUTION WIDTH 12.6 % (11.5-14.0); SEGMENTED NEUTROPHILS % (AUTO) 35.6 % (42-78); TOTAL CELLS COUNTED % (AUTO) 100 %; WHITE BLOOD COUNT 8.2 10^3/uL (4.0-10.5)
[2017-10-15 13:25] LABS: ALANINE AMINOTRANSFERASE 23 U/L (9-52); ALBUMIN 4.3 g/dL (3.5-5.0); ALKALINE PHOSPHATASE 54 U/L (38-126); ANION GAP 8 (5-19); ASPARTATE AMINO TRANSFERASE 18 U/L (14-36); BILIRUBIN,DIRECT 0.2 mg/dL (0.0-0.4); BILIRUBIN,TOTAL 0.2 mg/dL (0.2-1.3); BLOOD UREA NITROGEN 10 mg/dL (7-20); CALCIUM 10.3 mg/dL (8.4-10.2); CARBON DIOXIDE 33 mmol/L (22-30); CHLORIDE 99 mmol/L (98-107); GLUCOSE 88 mg/dL (75-110); POTASSIUM 3.8 mmol/L (3.6-5.0); SODIUM 139.5 mmol/L (137-145); TOTAL PROTEIN 7.6 g/dL (6.3-8.2)
[2017-10-15 13:33] LABS: APPEARANCE,URINE SLIGHTLY-CLOUDY; BILIRUBIN,URINE NEGATIVE (NEGATIVE); COLOR,URINE YELLOW; GLUCOSE, URINE NEGATIVE (NEGATIVE); KETONES,URINE NEGATIVE (NEGATIVE); LEUKOCYTE ESTERASE,URINE NEGATIVE (NEGATIVE); NITRITE,URINE NEGATIVE (NEGATIVE); PROTEIN,URINE NEGATIVE (NEGATIVE); URINE SPECIFIC GRAVITY 1.008; UROBILINOGEN,URINE NEGATIVE mg/dL (<2.0)
--- NOTE | 2017-10-15 14:42 | ER Document Report ---
ED Neck/Back Problem - General Chief Complaint: Numbness Stated Complaint: NUMBNESS IN BACK Time Seen by Provider: 10/15/17 12:19 Notes: The patient is a 32-year-old female, past medical history chronic back pain with lumbar surgery on 09/26/17 (she thinks it was a discectomy), presents with numbness from the center of her back down to her bilateral knees and pain that is worse when she bends forward. She called her neurosurgeon's office and the hotel front desk clerk told her to go to the ER. Patient denies change in bowel or bladder , saddle anesthesia, fevers, difficulty walking, discharge from the wound or injury. TRAVEL OUTSIDE OF THE [place] IN LAST 30 DAYS: No - Related Data Allergies/Adverse Reactions: cyclobenzaprine HCl [From Flexeril] Allergy (Verified 10/02/17 09:25) fluoxetine HCl [From Prozac] Allergy (Verified 10/02/17 09:25) ibuprofen [Ibuprofen] Allergy (Verified 10/02/17 09:25) ketorolac tromethamine [From Toradol] Allergy (Verified 10/02/17 09:25) prochlorperazine edisylate [From Compazine] Allergy (Verified 10/02/17 09:25) prochlorperazine maleate [From Compazine] Allergy (Verified 10/02/17 09:25) promethazine HCl [From Phenergan] Allergy (Verified 10/02/17 09:25) tramadol HCl [From Ultram] Allergy (Verified 10/02/17 09:25) Past Medical History - General Information source: Patient - Social History Smoking Status: Current Every Day Smoker Frequency of alcohol use: None Family History: Reviewed & Not Pertinent Patient has suicidal ideation: No Patient has homicidal ideation: No Pulmonary Medical History: Reports: Hx Asthma - as a child Neurological Medical History: Reports: Hx Migraine Renal/ Medical History: Denies: Hx Peritoneal Dialysis Musculoskeltal Medical History: Reports Hx Arthritis - LOW BACK Psychiatric Medical History: Reports: Hx Anxiety, Hx Bipolar Disorder, Hx Depression Past Surgical History: Reports: Hx Oral Surgery, Hx Orthopedic Surgery - lower back, Hx Tubal Ligation. Denies: Hx Pacemaker - Immunizations Hx Diphtheria, Pertussis, Tetanus Vaccination: Yes Review of Systems - Review of Systems Notes: REVIEW OF SYSTEMS: CONSTITUTIONAL: -fevers, -chills EENT: -eye pain, -difficulty swallowing, -nasal congestion CARDIOVASCULAR: -chest pain, -syncope. RESPIRATORY: -cough, -SOB GASTROINTESTINAL: -abdominal pain, -nausea, -vomiting, -diarrhea GENITOURINARY: -dysuria, -hematuria MUSCULOSKELETAL: +back pain, -neck pain SKIN: -rash or skin lesions. HEMATOLOGIC: -easy bruising or bleeding. LYMPHATIC: -swollen, enlarged glands. NEUROLOGICAL: -altered mental status or loss of consciousness, -headache, + tingling down B/L legs PSYCHIATRIC: -anxiety, -depression. ALL OTHER SYSTEMS REVIEWED AND NEGATIVE. Physical Exam - Vital signs Vitals: Temp Pulse Resp BP Pulse Ox 98.4 F 76 16 122/64 98 10/15/17 11:10/15/17 11:10/15/17 11:10/15/17 11:10/15/17 11:31 - Notes Notes: PHYSICAL EXAMINATION: GENERAL: Well-appearing, well-nourished and in no acute distress. HEAD: Atraumatic, normocephalic. EYES: Pupils equal round and reactive to light, extraocular movements intact, sclera anicteric, conjunctiva are normal. ENT: nares patent, oropharynx clear without exudates. Moist mucous membranes. NECK: Normal range of motion, supple without lymphadenopathy LUNGS: Breath sounds clear to auscultation bilaterally and equal. No wheezes rales or rhonchi. HEART: Regular rate and rhythm without murmurs ABDOMEN: Soft, nontender, normoactive bowel sounds. No guarding, no rebound. No masses appreciated. EXTREMITIES: Normal range of motion, no pitting or edema. No cyanosis. BACK: Well-healed surgical scar over midline lumbar region without redness or drainage. Tenderness over right lower lumbar region. RECTAL: Good rectal tone, no decreased sensation in saddle area. NEUROLOGICAL: Cranial nerves grossly intact. Normal speech, normal gait. Normal sensory and motor exams. PSYCH: Normal mood, normal affect. SKIN: Warm, Dry, normal turgor, no rashes or lesions noted. Course - Re-evaluation Re-evalutation: Patient with intermittent episodes of numbness down her back and posterior legs. She also said that she has had episodes of saddle anesthesia that occur when she bends forward. MRI ordered to assess for possible epidural abscess, epidural hematoma or any other complications post surgery. 10/15/17 17:35 4 cm epidural abscess seen on MRI. Placed call to [facility] to speak to her neurosurgeon Dr. De Paz. Awaiting callback. 10/15/17 18:[address] De Paz. Without a fever or leukocytosis thinks that an epidural abscess is unlikely at this time. MRI report can be normal postsurgical changes and may be small hematoma. Recommends a rectal exam and postvoid residual and calling him back. 10/15/17 18:24 Pt with good rectal tone and <50mL in bladder after voiding. Called back Dr. De Paz and suspects that patient has a small epidural hematoma without any signs of cord compression at this time. He will see the patient in his office tomorrow morning. Pt comfortable with plan. Given very strict return precautions and she understands. - Vital Signs Vital signs: Temp Pulse Resp BP Pulse Ox 98.4 F 69 15 108/55 L 99 10/15/17 11:31 10/15/17 18:11 10/15/17 18:11 10/15/17 18:11 10/15/17 18:11 - Laboratory Result Diagrams: 10/15/17 12:45 10/15/17 12:45 Laboratory results interpreted by me: 10/15/17 10/15/17 10/15/17 12:45 12:45 12:45 Seg Neutrophils % 35.6 L Lymphocytes % 48.9 H Carbon Dioxide 33 H Calcium 10.3 H Urine Blood MODERATE H - Diagnostic Test Radiology reviewed: Image reviewed, Reports reviewed Radiology results interpreted by me: Lumbar MRI: Of concern is an enhancing fluid collection posterior to the L5-S1 disc space measuring 4 cm, indicative of a small epidural abscess. Interval surgical changes L5-S1 with posterior decompression. There is generalized postoperative granulation tissue enhancement. Nonenhancing seroma in the subcutaneous soft tissues of the surgical site. Discharge - Discharge Clinical Impression: Low back pain Qualifiers: Chronicity: unspecified Back pain laterality: unspecified Sciatica presence: unspecified whether sciatica present Qualified Code(s): M54.5 - Low back pain Condition: Stable Disposition: HOME, SELF-CARE Additional Instructions: You must follow-up with your neurosurgeon tomorrow. Call the office tomorrow for an appointment. Bring the CD to the appointment. Any worsening pain, difficulty urinating or fevers, return to the ER. Referrals: MIGUE HORTON MD [Primary Care Provider] - Follow up as needed
--- NOTE | 2017-10-15 16:35 | RADIOLOGY REPORT (SQ) ---
EXAM DESCRIPTION: MRI LUMBAR SPINE COMBO COMPLETED DATE/TIME: 10/15/2017 4:06 pm REASON FOR STUDY: numbness bilat after surg COMPARISON: CT scan 10/02/2017 TECHNIQUE: Sagittal and Axial imaging includes T1, T1 post gadolinium, T2, STIR and gradient echo se quences. Coronal T2/HASTE imaging. CONTRAST TYPE AND DOSE: 15 mL Multihance. RENAL FUNCTION: None required. The patient is less than 50 years old. LIMITATIONS: None. FINDINGS: VISUALIZED UPPER ABDOMEN: Limited evaluation. No acute or suspicious findings suggested. SEGMENTATION: No transitional anatomy. The lowest well-developed disc space is labeled L5-S1. ALIGNMENT: Anatomic. VERTEBRAE: Intact. No fractures. BONE MARROW: Normal. No marrow replacement or reactive changes. DISC SIGNAL: Loss of height and T2 signal L5-S1. POSTERIOR ELEMENTS: Posterior decompression L5. HARDWARE: None in the spine. CORD AND CONUS: Normal in size and signal intensity. Conus at the appropriate level. SOFT TISSUES: No aortic aneurysm seen. No bulky retroperitoneal adenopathy or mass. No paraspinal mas s or fluid. L1-L2: No significant spinal stenosis or exit foraminal stenosis. L2-L3: No significant spinal stenosis or exit foraminal stenosis. L3-L4: No significant spinal stenosis or exit foraminal stenosis. L4-L5: No significant spinal stenosis or exit foraminal stenosis. L5-S1: There is a small enhancing fluid collection along the posterior vertebral bodies L5 and S1 spa ring the disc space. Measures 4.4 cm cranial caudal by 7 mm. Indicative of a small epidural abscess . There is also soft tissue enhancement posterior at the site of the posterior decompression which a ppears to be granulation tissue. There is a subcutaneous seroma measuring 1.7 cm which does not comm unicate. No compression of the thecal sac or nerve roots. LOWER THORACIC: Incompletely imaged. No stenosis seen. SACRUM: Visualized upper sacrum intact. ENHANCEMENT: Enhancement at the surgical site. Enhancement along the posterior vertebral bodies at L 5-S1 fluid collection in the epidural space which could indicate a small epidural abscess without sig nificant compression on nerve roots. OTHER: No other significant findings. IMPRESSION: Of concern is an enhancing fluid collection posterior to the L5-S1 disc space measuring 4 cm, indicative of a small epidural abscess. Interval surgical changes L5-S1 with posterior decompression. There is generalized postoperative gra nulation tissue enhancement. Nonenhancing seroma in the subcutaneous soft tissues of the surgical site. TECHNICAL DOCUMENTATION: JOB ID: [id number] [employer]- All Rights Reserved
[2017-10-15] MEDS ORDERED: CLINDAMYCIN 600 MG/D5W RTU 600 MG/50 ML RTUPB IV ONE (17:44)
[2017-10-15] MEDS ORDERED: HYDROMORPHONE HCL INJ/PF 2 MG/ML AMPULE IV ONE (17:44)
[2017-10-15 18:15] VITALS: BP 108/55
== END 2017-10-15 18:45 | disposition home or self-care (01) ==
LOC: ER 11:09
DX: M54.5 Low back pain (principal); R20.0 Anesthesia of skin; M54.9 Dorsalgia, unspecified; G89.29 Other chronic pain; Z98.890 Other specified postprocedural states; F17.200 Nicotine dependence, unspecified, uncomplicated
CPT/HCPCS: 99284; 96375; 96365; 36415; 85025; 80053; 81001; 72158; A9577; S0077; J1170

== ENCOUNTER → 2017-10-19 | Outpatient (CLI) | payer MEDICAID ==
--- NOTE | 2017-10-19 14:52 | RADIOLOGY REPORT (SQ) ---
EXAM DESCRIPTION: MRI LUMBAR SPINE COMBO COMPLETED DATE/TIME: 10/19/2017 2:12 pm REASON FOR STUDY: LUMBAR RADICULOPATHY M54.16 RADICULOPATHY, LUMBAR REGION COMPARISON: 10/15/2017 TECHNIQUE: Sagittal and Axial imaging includes T1, T1 post gadolinium, T2, STIR and gradient echo se quences. Coronal T2/HASTE imaging. CONTRAST TYPE AND DOSE: 15 mL Prohance. RENAL FUNCTION: GFR > 60. LIMITATIONS: None. FINDINGS: Epidural enhancement posterior to the L5-S1 disc space is not significantly changed, statu s post posterior decompression. No organized fluid collection. There is expected enhancement in the soft tissues posterior to the cord. No nerve root clumping. IMPRESSION: Unchanged epidural/dural enhancement in the surgical bed posterior to the L5-S1 disc spa ce. TECHNICAL DOCUMENTATION: JOB ID: [id number] [email or web address] All Rights Reserved
== END ==
LOC: RAD 13:14
PROVIDERS: ATTEND Specialist
DX: M54.16 Radiculopathy, lumbar region (principal)
CPT/HCPCS: 72158; A9577

== ENCOUNTER 2017-12-01 03:33 | Emergency (ER) | payer MEDICAID ==
[2017-12-01] MEDS ORDERED: ONDANSETRON 4 MG TAB.RAPDIS PO ONE (03:54)
--- NOTE | 2017-12-01 03:54 | ER Document Report ---
ED General - General Chief Complaint: Fall Stated Complaint: NAUSEA/DIZZY Time Seen by Provider: 12/01/17 03:38 Notes: Patient is a 32-year-old female who presents emergency department the chief complaint of nausea and vomiting 1. Patient states that she ate some Ethiopian food prior to coming to the ED after using milk of magnesia earlier today due to constipation for the past 10-14 days. She states that she did have benefit from the milk of magnesia and that she was able to have a small bowel movement prior to her fall. She states that she is on 5/325 Percocets for chronic low back pain and recent laminectomy of L4 that was complicated by a epidural hematoma. She has been following with [facility]geon [facility] De Paz. 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 This time she states it is at her baseline and she denies any associated urinary/stool incontinence, saddle anesthesia. While she was trying to get back from the bathroom she felt like she lost her footing due to the neuropathy in her legs and fell to the ground. She denies any loss of consciousness, headache. TRAVEL OUTSIDE OF THE [place] IN LAST 30 DAYS: No - Related Data Allergies/Adverse Reactions: cyclobenzaprine HCl [From Flexeril] Allergy (Verified 10/02/17 09:25) fluoxetine HCl [From Prozac] Allergy (Verified 10/02/17 09:25) ibuprofen [Ibuprofen] Allergy (Verified 10/02/17 09:25) ketorolac tromethamine [From Toradol] Allergy (Verified 10/02/17 09:25) prochlorperazine edisylate [From Compazine] Allergy (Verified 10/02/17 09:25) prochlorperazine maleate [From Compazine] Allergy (Verified 10/02/17 09:25) promethazine HCl [From Phenergan] Allergy (Verified 10/02/17 09:25) tramadol HCl [From Ultram] Allergy (Verified 10/02/17 09:25) Past Medical History - Social History Smoking Status: Current Every Day Smoker Family History: Reviewed & Not Pertinent Patient has suicidal ideation: No Patient has homicidal ideation: No Pulmonary Medical History: Reports: Hx Asthma - as a child Neurological Medical History: Reports: Hx Migraine Renal/ Medical History: Denies: Hx Peritoneal Dialysis Musculoskeltal Medical History: Reports Hx Arthritis - LOW BACK Psychiatric Medical History: Reports: Hx Anxiety, Hx Bipolar Disorder, Hx Depression Past Surgical History: Reports: Hx Oral Surgery, Hx Orthopedic Surgery - lower back, Hx Tubal Ligation. Denies: Hx Pacemaker - Immunizations Hx Diphtheria, Pertussis, Tetanus Vaccination: Yes Review of Systems - Review of Systems Notes: REVIEW OF SYSTEMS: CONSTITUTIONAL : Denies fever, chills, or sweats. Denies recent illness. CARDIOVASCULAR: Denies chest pain. Denies palpitations or racing or irregular heart beat. Denies ankle edema. RESPIRATORY: Denies cough, cold, or chest congestion. Denies shortness of breath, difficulty breathing, or wheezing. GASTROINTESTINAL: Admits to nause vomiting a, , constipation denies abdominal pain or distention. Denies diarrhea. Denies blood in vomitus, stools, or per rectum. Denies black, tarry stools. GENITOURINARY: Denies difficulty urinating, painful urination, burning, frequency, blood in urine, or discharge. MUSCULOSKELETAL: Denies any muscle spasms, difficulty walking, extremity pain SKIN: Denies rash, lesions or sores. NEUROLOGICAL: Denies confusion or altered mental status. Denies passing out or loss of consciousness. Denies dizziness or lightheadedness. Denies headache. Denies weakness or paralysis or loss of use of either side. Denies problems with gait or speech. Denies sensory loss, numbness, or tingling. Denies seizures. PSYCHIATRIC: Denies anxiety or stress. Denies depression, suicidal ideation, or homicidal ideation. ALL OTHER SYSTEMS REVIEWED AND NEGATIVE. Dictation was performed using [employer] voice recognition software Physical Exam - Vital signs Vitals: BP Pulse Ox 129/84 H 94 12/01/17 03:36 12/01/17 03:36 - Notes Notes: PHYSICAL EXAM GENERAL: Alert, interacts well. HEAD: Normocephalic, atraumatic. EYES: Pupils equal, round, and reactive to light. Extraocular movements intact. ENT: Oral mucosa moist, tongue midline. NECK: Full range of motion. Supple. Trachea midline. LUNGS: Clear to auscultation bilaterally, no wheezes, rales, or rhonchi. No respiratory distress. HEART: Regular rate and rhythm. No murmurs, gallops, or rubs. ABDOMEN: Soft, nondistended, nontender. No guarding, rebound, or rigidity.. Bowel sounds present in all 4 quadrants. EXTREMITIES: Moves all 4 extremities spontaneously. No edema, radial and dorsalis pedis pulses 2/4 bilaterally. No cyanosis. NEUROLOGICAL: Alert and oriented x4. Normal speech. PSYCH: Normal affect, normal mood. SKIN: Warm, dry, normal turgor. No rashes or lesions noted. Course - Re-evaluation Re-evalutation: 12/01/17 06:56 Presentation of a very well-appearing female in no acute distress. Abdominal exam is completely benign without any focal right lower quadrant or right upper quadrant abdominal tenderness, rigidity, rebound or guarding. Patient is tolerating oral intake without difficulty and does not appear clinically dehydrated on examination. AAS without evidence of obstruction, free air and shows bowel pattern consistent with constipation. Patient toelrating PO fluids in the ED and repeat abdominal exams without focal abdominal tenderness or distension. Patient provide a history consistent with constipation due to chronic narcotic use and ceasing her stool softener. Patient will be started on MiraLAX and recommended to follow closely with their primary care provider. - Vital Signs Vital signs: Temp Pulse Resp BP Pulse Ox 97.4 F 15 118/74 95 12/01/17 03:42 12/01/17 07:01 12/01/17 07:01 12/01/17 07:01 - Diagnostic Test Radiology reviewed: Image reviewed, Reports reviewed Discharge - Discharge Clinical Impression: Nausea Constipation Qualifiers: Constipation type: unspecified constipation type Qualified Code(s): K59.00 - Constipation, unspecified Condition: Good Disposition: HOME, SELF-CARE Additional Instructions: ABDOMINAL PAIN: There are many causes of abdominal pain. Pain can mean a serious problem requiring surgery (such as appendicitis). It can also be an innocent problem that goes away on its own (such as a viral infection). Often, time must pass to determine the cause of pain. The physician does not feel that hospitalization is necessary, at present. Things may change within the next 24 hours. Call the doctor or come back for re- examination if any problems occur, such as: (1) Pain that becomes more severe, steady, or becomes concentrated in one specific area. Also, pain that is more severe with movement or coughing. (2) Vomiting that persists or becomes more frequent. (3) Blood in the vomitus, urine, or bowel movements. Blood in the stool may have a tarry or black appearance. (4) Shaking chills or fever greater than 100 degrees F. (5) The abdomen becomes more distended or swollen. (6) Bowel movements cease. (7) Failure to improve as expected. NORMAL EXAM AND WORKUP: At this time, your examination and workup show no significant abnormality. No significant abnormal physical findings are noted. All laboratory, EKG, and imaging (x-ray, CT scans, ultrasound) studies that were ordered show no significant abnormality. Although your examination and all studies that were ordered showed no significant abnormal finding, there are no examinations and no studies that are 100% accurate. There is always the possibility that some abnormality could exist and not be detected with physical examination or within the limits and capabilities of laboratory and other studies. You should return or follow up as you were instructed on your visit today for further evaluation if your symptoms do not resolve. CONSTIPATION: Constipation is a common problem. It is especially likely as you get older. Constipation is a common cause of abdominal pain, but sometimes causes no symptoms at all. Causes of constipation include certain medications, dehydration, diets, inactivity, and low-fiber intake. Rarely, it can be a symptom of underlying disease. The physician has evaluated you for this. Avoid constipation by eating a diet high in fiber, fruits, and vegetables. Drink plenty of liquids. Get regular exercise. If possible, avoid constipating medicines like narcotic pain medication. Some vitamin tablets can cause constipation. Stool softeners may be needed for difficult cases. An excellent stool softener is Konsyl which is available at [employer], and [employer] drug store. Just add a teaspoon to a glass of pineapple or orange juice daily or twice a day if needed. Laxatives are useful for occasional constipation. You should use them only when necessary. Too-frequent use can make your bowels dependent on them. Some over the counter laxatives available without prescription are: Milk of Magnesia, 1-2 tablespoons twice a day Dulcolax, 5 mg pill or 10 mg suppository. Citrate of Magnesia, 4-5 ounces a day for a day or two For acute constipation, Fleet's Enemas and Dulcolax suppositories are helpful. Chronic, marine oil terminal superintendent use of laxatives or enemas is not a good idea. Your bowel may become dependant on them. You do not need to have a bowel movement every day. Many people do fine with a bowel movement every three or four days. You should call your doctor or return for re-evaluation if you pass blood in the stool, or if you develop fever or increasing abdominal pain. BULK LAXATIVES: Bulk laxatives make the stool softer and bulkier. They're useful for preventing constipation. You can choose between psyllium, methylcellulose, and polycarbophil. They are available without a prescription. Psyllium brand names include Konsyl, Metamucil, Perdiem, Effer-Syllium and Hydrocil. It's available as powder, flavored drink powder, or chewable. The usual dose of psyllium powder is one heaping teaspoon in water each morning, increasing to twice a day if needed. [place] juice can disguise the slightly grainy texture. Methylcellulose is marketed as Citrucel and other brands. The average dose is two grams in a cup of water one to three times a day. Polycarbophil is marketed as Fiber-Con. Take two tablets with a cup of water one to three times a day. LAXATIVE: A laxative agent has been prescribed for your condition. This should result in passage of stool within 12 hours. Some mild intestinal cramping is common as the hard stool begins to move. You may have loose or runny stools for a short time. Contact your doctor if there is severe cramping, vomiting, or passage of blood. Return for further care if this medicine fails to improve your condition. FOLLOW-UP CARE: If you have been referred to a physician for follow-up care, call the physician s office for an appointment as you were instructed or within the next two days. If you experience worsening or a significant change in your symptoms, notify the physician immediately or return to the Emergency Department at any time for re-evaluation. Prescriptions: Ondansetron [Zofran Odt 4 mg Tablet] 1 - 2 tab PO Q4H PRN #15 tab.rapdis PRN Reason: For Nausea/Vomiting Referrals: [facility] [Provider Group] - Follow up in 1 week
--- NOTE | 2017-12-01 04:28 | RADIOLOGY REPORT (SQ) ---
EXAM DESCRIPTION: ACUTE ABDOMEN SERIES CLINICAL HISTORY: 32 years, Female, constipation, chronic narcotic use COMPARISON: None. FINDINGS: Intestinal gas pattern is within normal limits. Paucity of bowel gas with moderate diffuse colonic stool retention. No suspicious calcification. Grossly intact skeletal structures. No acute cardiopulmonary findings. Bilateral pelvic clips. IMPRESSION: No acute findings.
[2017-12-01] MEDS ORDERED: METOCLOPRAMIDE HCL ORAL SOLN 10 MG/10 ML UDCUP PO ONE (04:58)
[2017-12-01] MEDS ORDERED: DIPHENHYDRAMINE HCL 50 MG/ML VIAL IM ONE (06:13)
[2017-12-01 07:07] VITALS: BP 118/74
== END 2017-12-01 07:07 | disposition home or self-care (01) ==
LOC: ER 03:33
DX: K59.00 Constipation, unspecified (principal); R11.2 Nausea with vomiting, unspecified; G57.90 Unspecified mononeuropathy of unspecified lower limb; M54.5 Low back pain; G89.29 Other chronic pain; Z79.891 Long term (current) use of opiate analgesic; Z79.899 Other long term (current) drug therapy; Z98.890 Other specified postprocedural states; F17.200 Nicotine dependence, unspecified, uncomplicated; Z88.8 Allergy status to other drugs, medicaments and biological substances; Z88.6 Allergy status to analgesic agent; Z88.5 Allergy status to narcotic agent
CPT/HCPCS: 99284; 96372; 74022; J1200; S0119; J3490

== ENCOUNTER 2018-01-22 08:21 | Emergency (ER) | payer SELFPAY ==
[2018-01-22 08:30] VITALS: BP 127/89
[2018-01-22] MEDS ORDERED: KETOROLAC TROMETHAMINE 60 MG/2 ML SDV IM ONE (09:14)
[2018-01-22] MEDS ORDERED: DEXAMETHASONE SOD PHOS INJ 10 MG/1 ML VIAL IM ONE (09:14)
--- NOTE | 2018-01-22 09:27 | ER Document Report ---
ED Neck/Back Problem - General Chief Complaint: Low Back Pain Stated Complaint: BACK AND LEG PAIN Time Seen by Provider: 01/22/18 09:04 Mode of Arrival: Ambulatory Information source: Patient Notes: 32-year-old female presents to ED for complaint of lower back pain she states she has had a chronic back pain and she had a laminectomy in September. She states for the last week the pain is been back with pain down the outer aspects of both extremities. She states she has talked to her back surgeon who states she would need to go to her primary doctor. Her primary doctor said she needed to get scheduled with a nerve conduction study and that will be on February 06. Patient states she could not wait to February 06 for her pain. She is alert and oriented speaks in full sentences pupils equal and react to light and able to walk with a even steady gait. TRAVEL OUTSIDE OF THE [place] IN LAST 30 DAYS: No - HPI Patient complains to provider of: Pain, Lower back Onset: Other - Chronic Onset: Chronic Timing: Still present Quality of pain: Burning, Sharp Severity: Moderate Pain Level: 4 Context: Bending, Turning Recent injury: No Associated symptoms: Like prior neck/back pain, Numbness/tingling, Radiation to leg, Lower back pain. denies: Incontinence, Unable to urinate Exacerbated by: Movement of trunk Relieved by: Nothing Similar symptoms previously: Yes Recently seen / treated by doctor: No - Has an appointment on February 06 has called her surgeon and primary doctor - Related Data Allergies/Adverse Reactions: cyclobenzaprine HCl [From Flexeril] Allergy (Verified 01/22/18 08:23) fluoxetine HCl [From Prozac] Allergy (Verified 01/22/18 08:23) ibuprofen [Ibuprofen] Allergy (Verified 01/22/18 08:23) ketorolac tromethamine [From Toradol] Allergy (Verified 01/22/18 08:23) prochlorperazine edisylate [From Compazine] Allergy (Verified 01/22/18 08:23) prochlorperazine maleate [From Compazine] Allergy (Verified 01/22/18 08:23) promethazine HCl [From Phenergan] Allergy (Verified 01/22/18 08:23) tramadol HCl [From Ultram] Allergy (Verified 01/22/18 08:23) Past Medical History - General Information source: Patient - Social History Smoking Status: Current Every Day Smoker Cigarette use (# per day): Yes Chew tobacco use (# tins/day): No Smoking Education Provided: Yes - 4 minutes Frequency of alcohol use: None Drug Abuse: None Lives with: Family Family History: Reviewed & Not Pertinent Patient has suicidal ideation: No Patient has homicidal ideation: No - Past Medical History Cardiac Medical History: Reports: None Pulmonary Medical History: Reports: Hx Asthma - as a child EENT Medical History: Reports: None Neurological Medical History: Reports: Hx Migraine Endocrine Medical History: Reports: None Renal/ Medical History: Reports: None Malignancy Medical History: Reports: None GI Medical History: Reports: None Musculoskeltal Medical History: Reports Hx Arthritis - LOW BACK, Reports Hx Musculoskeletal Deformity, Reports Hx Musculoskeletal Trauma Skin Medical History: Reports None Psychiatric Medical History: Reports: Hx Anxiety, Hx Bipolar Disorder, Hx Depression Traumatic Medical History: Reports: None Infectious Medical History: Reports: None Past Surgical History: Reports: Hx Oral Surgery, Hx Orthopedic Surgery - lower back, Hx Tubal Ligation - Immunizations Hx Diphtheria, Pertussis, Tetanus Vaccination: Yes Review of Systems - Review of Systems Constitutional: No symptoms reported EENT: No symptoms reported Cardiovascular: No symptoms reported Respiratory: No symptoms reported Gastrointestinal: Diarrhea, Constipation, Fecal incontinence Genitourinary: Incontinence, Retention Female Genitourinary: No symptoms reported Musculoskeletal: Back pain, Muscle pain, Muscle stiffness Skin: No symptoms reported Hematologic/Lymphatic: No symptoms reported Neurological/Psychological: No symptoms reported -: Yes All other systems reviewed and negative Physical Exam - Vital signs Vitals: Temp Pulse Resp BP Pulse Ox 98.3 F 91 16 127/89 H 97 01/22/18 08:29 01/22/18 08:29 01/22/18 08:29 01/22/18 08:29 01/22/18 08:29 Interpretation: Normal - General General appearance: Appears well, Alert - HEENT Head: Normocephalic, Atraumatic Eyes: Normal Pupils: PERRL - Respiratory Respiratory status: No respiratory distress Chest status: Nontender Breath sounds: Normal Chest palpation: Normal - Cardiovascular Rhythm: Regular Heart sounds: Normal auscultation Murmur: No - Abdominal Inspection: Normal Distension: No distension Bowel sounds: Normal Tenderness: Nontender Organomegaly: No organomegaly - Back Back: Normal, Tender, Vertebra tenderness. No: Deformity/step-off, CVA tenderness, Scars - Lumbar area, Scoliosis, Wounds - Extremities General upper extremity: Normal inspection, Nontender, Normal color, Normal ROM , Normal temperature General lower extremity: Normal inspection, Nontender, Normal color, Normal ROM , Normal temperature, Normal weight bearing. No: Shanda's sign - Neurological Neuro grossly intact: Yes Cognition: Normal Orientation: AAOx4 Aamir Coma Scale Eye Opening: Spontaneous [place] Coma Scale Verbal: Oriented [place] Coma Scale Motor: Obeys Commands [place] Coma Scale Total: 15 Speech: Normal Motor strength normal: LUE, RUE, LLE, RLE Sensory: Normal - Psychological Associated symptoms: Normal affect, Normal mood - Skin Skin Temperature: Warm Skin Moisture: Dry Skin Color: Normal Course - Re-evaluation Re-evalutation: 01/22/18 09:36 After performing a Medical Screening Examination, I estimate there is LOW risk for EXPANDING OR RUPTURED ABDOMINAL AORTIC ANEURYSM, CAUDA EQUINA SYNDROME, EPIDURAL MASS LESION, or HERNIATED DISK CAUSING SEVERE SPINAL STENOSIS, have offered a CAT scan of the low back, Toradol injection, Decadron injection, and muscle relaxers all of which patient refused. I also or offered Lidoderm patch but she states that she breaks out from that. She had first was going to get the CAT scan and the Toradol and Decadron and then decided that she would rather "just go home and hurt if I am not going to give her narcotics " - Vital Signs Vital signs: Temp Pulse Resp BP Pulse Ox 98.3 F 91 16 127/89 H 97 01/22/18 08:29 01/22/18 08:29 01/22/18 08:29 01/22/18 08:29 01/22/18 08:29 Discharge - Discharge Clinical Impression: Chronic back pain greater than 3 months duration Condition: Stable Disposition: AGAINST MEDICAL ADVICE Additional Instructions: Chronic Back Pain Chronic back pain (pain persisting longer than three months) is a common problem. A medical evaluation can look for herniated disc, arthritis, osteoporosis, tumors, and infections. But at least half the time, there's no obvious treatable cause. Anxiety and depression tend to worsen back pain. Ibuprofen or other anti-inflammatory medicine can help. A heating pad, used for 15-20 minutes at a time, can ease pain. For this type of back pain, narcotic medicines should be avoided. Muscle relaxers are rarely helpful unless you're having spasms. Activity is important. Find an aerobic exercise program that your back can tolerate. Too much rest makes back pain worse. Specific back exercises are usually prescribed to strengthen the back and abdominal muscles. Often, a physical therapist can help. Avoid heavy lifting, working while bent over, or standing with both knees straight. Most back pain patients do better with a firm mattress. If new symptoms of a "herniated disc" (radiation of pain, numbness, or tingling down the back of the leg or weakness in the leg) occur, you should be re-examined. Chronic Pain Control Stress, inactivity, and depression make pain more severe regardless of the cause of the pain. Stress and poor physical condition can cause pain such as headaches and backache. Relaxation: Rest in a quiet place with your eyes closed for 20 minutes twice daily. Concentrate on a pleasant image, or simply "feel" your breathing. Clear your mind. Stress management: Deal with your "stressors." Either take action, or eliminate the stressor from your life. Don't let things hang over you. Accept those things you can't change. Nutrition: Eat small, balanced meals -- don't skip, don't overeat. Meals should be high-carbohydrate, low-sugar, low-fat. Exercise: Exercise helps painful conditions and eases stress. Get 30 minutes of moderate exercise, five days a week. Do an activity that does not flare your pain. Precautions: Pain which continues to disrupt daily activities, or which changes in nature, requires a medical evaluation. Pain Clinic referral is available. We do not manage chronic pain in the Emergency Department. We will try to appropriately help you through an acute flare of your chronic painful condition , but for on-going chronic pain that does not improve, you will need to see your private doctor or ceramic painter. We do not provide repeated medication management of chronic painful conditions. If you wish, we can provide the name of local pain management physicians. ICE PACKS: Apply ice packs frequently against the painful area. Many different schedules are recommended, such as "20 minutes on, 20 minutes off" or "one hour ice, two hours rest." If you need to work, you may need to go longer between ice treatments. You should plan to have the area ice packed AT LEAST one fourth of the time. The ice should be applied over the wrap, tape, or splint, or over a layer of cloth -- not directly against the skin. Some ice bags have a built-in cloth and can be put directly on the skin. WARM PACKS: After approximately two days, apply gentle heat (such as a heating pad or hot water bottle) for about 20 to 30 minutes about every two hours -- at least four times daily. Warmth and elevation will help you make a more rapid recovery , and will ease the pain considerably. Do not use HOT heat, and never apply heat for longer than 30 minutes. The continuous heat can invisibly damage skin and muscles -- even when no burn is seen on the surface. Damaged muscles can make you MORE sore. Stretching Exercises for the Back The physician has recommended that you begin stretching exercises for your back. These are often used even while the back is painful. However, you should notify the physician if the activities seem to increase your pain. PELVIC TILT: Lie flat on your back with knees bent. Tighten your stomach and buttock muscles so it flattens your lower back against the floor. Hold 10 seconds. Repeat 10 times, twice daily. KNEE RAISE: Lying on the back with knees bent, raise one knee to your chest, then the other. Hold both knees against the chest 10 seconds, then lower one knee at a time. Repeat 10 times, twice daily. PARTIAL TRUNK RAISE: Lie face down, arms at your sides. Keeping your waist on the floor, use your arms raise your chest up. Support yourself on your elbows for 30 seconds. Repeat twice daily, increasing the time to two minutes as you recover. You have been offered a Toradol injection, steroid injection, muscle relaxers, and a CAT scan all of which you have refused today she stated she would rather go home and hurt then to use any of these medications, which you state only temporarily help you with your pain. You state you have an appointment on February 06 for a nerve conductions test and you would rather go home and wait for that. FOLLOW-UP CARE: If you have been referred to a physician for follow-up care, call the physician s office for an appointment as you were instructed or within the next two days. If you experience worsening or a significant change in your symptoms, notify the physician immediately or return to the Emergency Department at any time for re-evaluation. Forms: Elevated Blood Pressure Referrals: MIGUE HORTON MD [Primary Care Provider] - Follow up as needed
== END 2018-01-22 09:26 | disposition left against medical advice (07) ==
LOC: ER 08:21
DX: G89.29 Other chronic pain (principal); M54.5 Low back pain; M79.605 Pain in left leg; M79.604 Pain in right leg; R19.7 Diarrhea, unspecified; K59.00 Constipation, unspecified; F17.210 Nicotine dependence, cigarettes, uncomplicated; Z88.6 Allergy status to analgesic agent; Z98.51 Tubal ligation status
CPT/HCPCS: 99283; 99406

== ENCOUNTER 2018-02-06 09:42 | Emergency (ER) | payer SELFPAY ==
[2018-02-06 09:52] VITALS: BP 127/75
[2018-02-06] MEDS ORDERED: ASPIRIN 81 MG TABLET, CHEWABLE PO ONE (09:57)
--- NOTE | 2018-02-06 09:58 | ER Document Report ---
ED Medical Screen (RME) - General Chief Complaint: Rib Pain Stated Complaint: ABDOMINAL PAIN Time Seen by Provider: 02/06/18 09:57 Mode of Arrival: Ambulatory Information source: Patient Notes: This is a 32-year-old female with a history of migraines, asthma, depression, bipolar who presents to the emergency room with constant left chest pain which is worse with inspiration. The pain started yesterday. TRAVEL OUTSIDE OF THE [place] IN LAST 30 DAYS: No - Related Data Allergies/Adverse Reactions: cyclobenzaprine HCl [From Flexeril] Allergy (Verified 02/06/18 09:45) fluoxetine HCl [From Prozac] Allergy (Verified 02/06/18 09:45) ibuprofen [Ibuprofen] Allergy (Verified 02/06/18 09:45) ketorolac tromethamine [From Toradol] Allergy (Verified 02/06/18 09:45) prochlorperazine edisylate [From Compazine] Allergy (Verified 02/06/18 09:45) prochlorperazine maleate [From Compazine] Allergy (Verified 02/06/18 09:45) promethazine HCl [From Phenergan] Allergy (Verified 02/06/18 09:45) tramadol HCl [From Ultram] Allergy (Verified 02/06/18 09:45) Past Medical History - Social History Family history: None Pulmonary Medical History: Reports: Hx Asthma - as a child Neurological Medical History: Reports: Hx Migraine Renal/ Medical History: Denies: Hx Peritoneal Dialysis Musculoskeltal Medical History: 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 Denies: Hx Pacemaker - Immunizations Hx Diphtheria, Pertussis, Tetanus Vaccination: Yes Physical Exam - Vital signs Vitals: Temp Pulse Resp BP Pulse Ox 97.9 F 71 16 127/75 H 96 02/06/18 09:51 02/06/18 09:51 02/06/18 09:51 02/06/18 09:51 02/06/18 09:51 Course - Vital Signs Vital signs: Temp Pulse Resp BP Pulse Ox 97.9 F 71 16 127/75 H 96 02/06/18 09:51 02/06/18 09:51 02/06/18 09:51 02/06/18 09:51 02/06/18 09:51 Doctor's Discharge - Discharge Referrals: MIGUE HORTON MD [Primary Care Provider] - Follow up as needed
[2018-02-06 10:37] LABS: ABSOLUTE BASOPHILS # (AUTO) 0.1 10^3/uL (0.0-0.2); ABSOLUTE EOSINOPHILS # (AUTO) 0.2 10^3/uL (0.0-0.6); ABSOLUTE LYMPHOCYTES (AUTO) 3.1 10^3/uL (0.5-4.7); ABSOLUTE MONOCYTES (AUTO) 0.5 10^3/uL (0.1-1.4); ABSOLUTE NEUT (AUTO) 3.9 10^3/uL (1.7-8.2); BASOPHILS % (AUTO) 1.1 % (0-2); EOSINOPHILS % (AUTO) 2.9 % (0-6); HEMATOCRIT 38.3 % (36.0-47.0); HEMOGLOBIN 13.2 g/dL (12.0-15.5); LYMPHOCYTES % (AUTO) 39.4 % (13-45); MEAN CORPUSCULAR HGB CONC 34.5 g/dL (32.0-36.0); MEAN CORPUSCULAR VOLUME 93 fl (80-97); MONOCYTES % (AUTO) 6.9 % (3-13); PLATELET COUNT 318 10^3/uL (150-450); RED BLOOD COUNT 4.12 10^6/uL (3.72-5.28); RED CELL DISTRIBUTION WIDTH 12.8 % (11.5-14.0); SEGMENTED NEUTROPHILS % (AUTO) 49.7 % (42-78); TOTAL CELLS COUNTED % (AUTO) 100 %; WHITE BLOOD COUNT 7.9 10^3/uL (4.0-10.5)
--- NOTE | 2018-02-06 10:44 | RADIOLOGY REPORT (SQ) ---
EXAM DESCRIPTION: CHEST SINGLE VIEW COMPLETED DATE/TIME: 02/06/2018 10:36 am REASON FOR STUDY: left chest pain COMPARISON: 03/24/2017. EXAM PARAMETERS: NUMBER OF VIEWS: One view. TECHNIQUE: Single frontal radiographic view of the chest acquired. RADIATION DOSE: NA LIMITATIONS: None. FINDINGS: LUNGS AND PLEURA: No opacities, masses or pneumothorax. No pleural effusion. MEDIASTINUM AND HILAR STRUCTURES: No masses. Contour normal. HEART AND VASCULAR STRUCTURES: Heart normal in size. Normal vasculature. BONES: No acute findings. HARDWARE: None in the chest. OTHER: No other significant finding. IMPRESSION: NO ACUTE RADIOGRAPHIC FINDING IN THE CHEST. TECHNICAL DOCUMENTATION: JOB ID: [id number] [employer]- All Rights Reserved Reading location - IP/workstation name: [email or web address]
[2018-02-06 11:04] LABS: ALANINE AMINOTRANSFERASE 21 U/L (9-52); ALBUMIN 3.9 g/dL (3.5-5.0); ALKALINE PHOSPHATASE 59 U/L (38-126); ANION GAP 10 (5-19); ASPARTATE AMINO TRANSFERASE 14 U/L (14-36); BILIRUBIN,DIRECT 0.2 mg/dL (0.0-0.4); BILIRUBIN,TOTAL 0.2 mg/dL (0.2-1.3); BLOOD UREA NITROGEN 10 mg/dL (7-20); CALCIUM 9.8 mg/dL (8.4-10.2); CARBON DIOXIDE 26 mmol/L (22-30); CHLORIDE 106 mmol/L (98-107); CREATINE KINASE 55 U/L (30-135); GLUCOSE 98 mg/dL (75-110); POTASSIUM 4.5 mmol/L (3.6-5.0); SODIUM 141.5 mmol/L (137-145); TOTAL PROTEIN 7.2 g/dL (6.3-8.2)
--- NOTE | 2018-02-06 11:13 | ER Document Report ---
ED Cardiac - General Chief Complaint: Rib Pain Stated Complaint: ABDOMINAL PAIN Time Seen by Provider: 02/06/18 09:57 Mode of Arrival: Ambulatory Information source: Patient Notes: 32 yo smoker, BTL, non hyperlipedemic, non DM, non hormone, low back surgery c/ o lower left dull constant chest pain since 1730 last night while sitting on the sofa while still, 4/5, now 1/5. Got sharper at 2330 had upper left chest pain and left shouler pain (lasted less than 1 min). Worse with smoking so has not been smoking since it started. No change with movement. No sore throat or cough. Came to er this morning bc of sharp left upper chest pain and into left shoulder like at 2330 at 0730 this am, (lasted less than 1 samuel). No SOB with the chest pain. Constant nausea yesterday at 2 pm. No vomiting or diarrhea. No fever or chills. No hx GERD. No hx DVT or PE. FHx: DAD 30's [place], stroke, heart surgery. TRAVEL OUTSIDE OF THE [place] IN LAST 30 DAYS: No - Related Data Allergies/Adverse Reactions: cyclobenzaprine HCl [From Flexeril] Allergy (Verified 02/06/18 09:45) fluoxetine HCl [From Prozac] Allergy (Verified 02/06/18 09:45) ibuprofen [Ibuprofen] Allergy (Verified 02/06/18 09:45) ketorolac tromethamine [From Toradol] Allergy (Verified 02/06/18 09:45) prochlorperazine edisylate [From Compazine] Allergy (Verified 02/06/18 09:45) prochlorperazine maleate [From Compazine] Allergy (Verified 02/06/18 09:45) promethazine HCl [From Phenergan] Allergy (Verified 02/06/18 09:45) tramadol HCl [From Ultram] Allergy (Verified 02/06/18 09:45) Past Medical History - General Information source: Patient - Social History Smoking Status: Current Every Day Smoker Chew tobacco use (# tins/day): No Frequency of alcohol use: None Drug Abuse: None Occupation: [employer] Lives with: Family Family History: Reviewed & Not Pertinent Patient has suicidal ideation: No Patient has homicidal ideation: No Pulmonary Medical History: Reports: Hx Asthma - as a child Neurological Medical History: Reports: Hx Migraine Renal/ Medical History: Denies: Hx Peritoneal Dialysis Musculoskeltal Medical History: Reports Hx Arthritis - LOW BACK, Reports Hx Musculoskeletal Deformity, Reports Hx Musculoskeletal Trauma Psychiatric Medical History: Reports: Hx Anxiety, Hx Bipolar Disorder, Hx Depression Past Surgical History: Reports: Hx Oral Surgery, Hx Orthopedic Surgery - lower back, Hx Tubal Ligation - Immunizations Hx Diphtheria, Pertussis, Tetanus Vaccination: Yes Review of Systems - Review of Systems Constitutional: No symptoms reported EENT: No symptoms reported Cardiovascular: See HPI Respiratory: No symptoms reported Gastrointestinal: See HPI Genitourinary: No symptoms reported Female Genitourinary: No symptoms reported Musculoskeletal: No symptoms reported Skin: No symptoms reported Hematologic/Lymphatic: No symptoms reported Neurological/Psychological: No symptoms reported Physical Exam - Vital signs Vitals: Temp Pulse Resp BP Pulse Ox 97.9 F 71 16 127/75 H 96 02/06/18 09:51 02/06/18 09:51 02/06/18 09:51 02/06/18 09:51 02/06/18 09:51 Interpretation: Normal - General General appearance: Appears well, Alert In distress: None - HEENT Head: Normocephalic, Atraumatic Eyes: Normal Conjunctiva: Normal Pupils: PERRL Mucous membranes: Normal Pharynx: Normal Neck: Supple. No: Lymphadenopathy - Respiratory Respiratory status: No respiratory distress Chest status: Nontender Breath sounds: Normal Chest palpation: Tender - left lower chest tender (not location of the sharp pain) - Cardiovascular Rhythm: Regular Heart sounds: Normal auscultation Murmur: No - Abdominal Inspection: Normal Distension: No distension Bowel sounds: Normal Tenderness: Nontender Organomegaly: No organomegaly - Back Back: Normal, Nontender - Extremities General upper extremity: Normal inspection, Nontender, Normal color, Normal ROM , Normal temperature General lower extremity: Normal inspection, Nontender, Normal color, Normal ROM , Normal temperature, Normal weight bearing. No: Shanda's sign - Neurological Neuro grossly intact: Yes Cognition: Normal Orientation: AAOx4 [place] Coma Scale Eye Opening: Spontaneous [place] Coma Scale Verbal: Oriented [place] Coma Scale Motor: Obeys Commands [place] Coma Scale Total: 15 Speech: Normal Motor strength normal: LUE, RUE, LLE, RLE Sensory: Normal - Psychological Associated symptoms: Normal affect, Normal mood - Skin Skin Temperature: Warm Skin Moisture: Dry Skin Color: Normal Course - Re-evaluation Re-evalutation: 02/06/18 14:21 pt wants to leave without the 2nd troponin. Advised pt at bedside with nurse : pt accepts the risk of possible and does not want the 2nd troponin and wants to leave AMA. She states she will f/u with dr. abernathy, copy of labs imaging and ekg given to her with cardiology referral. ASA 81mg daily and stop smoking reccomended. 02/06/18 14:27 d dimer was negative. 1st set cardiacs is negative. cxr negative. cbc normal. EKG NSR no acute change. QT 300, QTC 407 - Vital Signs Vital signs: Temp Pulse Resp BP Pulse Ox 97.9 F 71 16 127/75 H 100 02/06/18 09:51 02/06/18 09:51 02/06/18 09:51 02/06/18 09:51 02/06/18 10:32 - Laboratory Result Diagrams: 02/06/18 10:05 02/06/18 10:05 Discharge - Discharge Clinical Impression: Chest pain Qualifiers: Chest pain type: unspecified Qualified Code(s): R07.9 - Chest pain, unspecified Condition: Good Disposition: HOME, SELF-CARE Instructions: Chest Pain of Unclear Cause ([facility]), Aspirin (Cardiac) ([facility]), Stop Smoking ([facility]) Additional Instructions: stop smoking 81mg aspirin daily see dr. abernathy for follow up referral to nursing admin Forms: Smoking Cessation Education Referrals: MIGUE HORTON MD [Primary Care Provider] - Follow up tomorrow (or dr abernathy )
[2018-02-06 11:17] LABS: CREATINE KINASE MB < 0.22 ng/mL (<4.55); TROPONIN I < 0.012 ng/mL
--- NOTE | 2018-02-06 22:33 | EKG REPORT ---
SEVERITY:- NORMAL ECG - SINUS RHYTHM : Confirmed by: Crystal Solano MD 06-Feb-2018 22:32:20
== END 2018-02-06 14:36 | disposition left against medical advice (07) ==
LOC: ER 09:42
DX: R07.81 Pleurodynia (principal); F17.200 Nicotine dependence, unspecified, uncomplicated; Z98.51 Tubal ligation status
CPT/HCPCS: 36415; 71045; 80053; 82550; 82553; 84484; 85025; 85379; 93005; 93010; 99284

== ENCOUNTER 2018-05-09 10:16 | Emergency (ER) | payer SELFPAY ==
[2018-05-09 10:20] VITALS: BP 131/97
--- NOTE | 2018-05-09 10:47 | ER Document Report ---
ED Medical Screen (RME) - General Chief Complaint: Nausea/Vomiting/Diarrhea Stated Complaint: BODY PAIN Time Seen by Provider: 05/09/18 10:44 Notes: Patient says that she has had nausea since last night and developed diarrhea this morning. Has had 2 loose bowel movements this morning. No blood present. Has not vomited. Has not had a fever. Also complains of generalized body aches and aches in her joints. Not exposed to anyone with similar symptoms. Patient has had her tubes tied. History of back surgery. TRAVEL OUTSIDE OF THE [place] IN LAST 30 DAYS: No - Related Data Allergies/Adverse Reactions: cyclobenzaprine HCl [From Flexeril] Allergy (Verified 05/09/18 10:17) fluoxetine HCl [From Prozac] Allergy (Verified 05/09/18 10:17) ibuprofen [Ibuprofen] Allergy (Verified 05/09/18 10:17) ketorolac tromethamine [From Toradol] Allergy (Verified 05/09/18 10:17) prochlorperazine edisylate [From Compazine] Allergy (Verified 05/09/18 10:17) prochlorperazine maleate [From Compazine] Allergy (Verified 05/09/18 10:17) promethazine HCl [From Phenergan] Allergy (Verified 05/09/18 10:17) tramadol HCl [From Ultram] Allergy (Verified 05/09/18 10:17) Past Medical History - Social History Frequency of alcohol use: None Drug Abuse: None Family history: None Pulmonary Medical History: Reports: Hx Asthma - as a child Neurological Medical History: Reports: Hx Migraine Renal/ Medical History: Denies: Hx Peritoneal Dialysis Musculoskeltal Medical History: 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 Denies: Hx Pacemaker - Immunizations Hx Diphtheria, Pertussis, Tetanus Vaccination: Yes Physical Exam - Vital signs Vitals: Temp Pulse Resp BP Pulse Ox 98.2 F 89 14 131/97 H 100 05/09/18 10:19 05/09/18 10:19 05/09/18 10:19 05/09/18 10:19 05/09/18 10:19 Course - Vital Signs Vital signs: Temp Pulse Resp BP Pulse Ox 98.2 F 89 14 131/97 H 100 05/09/18 10:19 05/09/18 10:19 05/09/18 10:19 05/09/18 10:19 05/09/18 10:19 Doctor's Discharge - Discharge Referrals: MIGUE HORTON MD [Primary Care Provider] - Follow up as needed
[2018-05-09 11:20] LABS: ABSOLUTE BASOPHILS # (AUTO) 0.1 10^3/uL (0.0-0.2); ABSOLUTE EOSINOPHILS # (AUTO) 0.3 10^3/uL (0.0-0.6); ABSOLUTE LYMPHOCYTES (AUTO) 2.9 10^3/uL (0.5-4.7); ABSOLUTE MONOCYTES (AUTO) 0.6 10^3/uL (0.1-1.4); BASOPHILS % (AUTO) 0.9 % (0-2); EOSINOPHILS % (AUTO) 3.4 % (0-6); HEMATOCRIT 40.6 % (36.0-47.0); MEAN CORPUSCULAR HEMOGLOBIN 31.6 pg (27.0-33.4); MEAN CORPUSCULAR HGB CONC 34.3 g/dL (32.0-36.0); MEAN CORPUSCULAR VOLUME 92 fl (80-97); MONOCYTES % (AUTO) 6.1 % (3-13); PLATELET COUNT 286 10^3/uL (150-450); RED BLOOD COUNT 4.41 10^6/uL (3.72-5.28); RED CELL DISTRIBUTION WIDTH 13.1 % (11.5-14.0); SEGMENTED NEUTROPHILS % (AUTO) 60.6 % (42-78); TOTAL CELLS COUNTED % (AUTO) 100 %; WHITE BLOOD COUNT 9.9 10^3/uL (4.0-10.5)
[2018-05-09 11:51] LABS: ALANINE AMINOTRANSFERASE 18 U/L (9-52); ALBUMIN 4.2 g/dL (3.5-5.0); ALKALINE PHOSPHATASE 59 U/L (38-126); ANION GAP 10 (5-19); ASPARTATE AMINO TRANSFERASE 18 U/L (14-36); BILIRUBIN,DIRECT 0.3 mg/dL (0.0-0.4); BILIRUBIN,TOTAL 0.4 mg/dL (0.2-1.3); BLOOD UREA NITROGEN 7 mg/dL (7-20); CALCIUM 9.8 mg/dL (8.4-10.2); CARBON DIOXIDE 27 mmol/L (22-30); CHLORIDE 103 mmol/L (98-107); GLUCOSE 98 mg/dL (75-110); POTASSIUM 4.1 mmol/L (3.6-5.0); SODIUM 140.4 mmol/L (137-145); TOTAL PROTEIN 7.8 g/dL (6.3-8.2)
[2018-05-09 12:12] LABS: APPEARANCE,URINE CLEAR; BILIRUBIN,URINE NEGATIVE (NEGATIVE); COLOR,URINE LIGHT YELLOW; GLUCOSE, URINE NEGATIVE (NEGATIVE); KETONES,URINE NEGATIVE (NEGATIVE); PROTEIN,URINE NEGATIVE (NEGATIVE); URINE SPECIFIC GRAVITY 1.017
[2018-05-09 12:13] LABS: ADD MANUAL MICROSCOPIC YES; LEUKOCYTE ESTERASE,URINE TRACE (NEGATIVE); NITRITE,URINE NEGATIVE (NEGATIVE); UROBILINOGEN,URINE NEGATIVE mg/dL (<2.0)
[2018-05-09 12:14] LABS: BACTERIA,URINE TRACE /HPF
[2018-05-09] MEDS ORDERED: ACETAMINOPHEN 325 MG TABLET PO ONE (14:11)
[2018-05-09] MEDS ORDERED: MELOXICAM 7.5 MG TABLET PO ONE (14:11)
--- NOTE | 2018-05-09 14:11 | ER Document Report ---
ED General - General Chief Complaint: Nausea/Vomiting/Diarrhea Stated Complaint: BODY PAIN Time Seen by Provider: 05/09/18 10:44 Notes: 32-year-old female to the emergency department complaining of nausea and joint pain. States that every joint in her body hurts. Mother has a history of rheumatoid arthritis. States that she has been taking aspirin and ibuprofen but it does not seem to be helping. Denies any fever, chills, sweats. Some intermittent nausea TRAVEL OUTSIDE OF THE [place] IN LAST 30 DAYS: No - HPI Onset/Duration: Gradual Quality of pain: Achy Severity: Moderate Associated symptoms: Nausea - Related Data Allergies/Adverse Reactions: cyclobenzaprine HCl [From Flexeril] Allergy (Verified 05/09/18 10:17) fluoxetine HCl [From Prozac] Allergy (Verified 05/09/18 10:17) ibuprofen [Ibuprofen] Allergy (Verified 05/09/18 10:17) ketorolac tromethamine [From Toradol] Allergy (Verified 05/09/18 10:17) prochlorperazine edisylate [From Compazine] Allergy (Verified 05/09/18 10:17) prochlorperazine maleate [From Compazine] Allergy (Verified 05/09/18 10:17) promethazine HCl [From Phenergan] Allergy (Verified 05/09/18 10:17) tramadol HCl [From Ultram] Allergy (Verified 05/09/18 10:17) Past Medical History - General Information source: Patient - Social History Smoking Status: Current Every Day Smoker Frequency of alcohol use: None Drug Abuse: None Lives with: Family Family History: Reviewed & Not Pertinent Patient has suicidal ideation: No Patient has homicidal ideation: No Pulmonary Medical History: Reports: Hx Asthma - as a child Neurological Medical History: Reports: Hx Migraine Renal/ Medical History: Denies: Hx Peritoneal Dialysis Musculoskeletal Medical History: 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 Denies: Hx Pacemaker - Immunizations Hx Diphtheria, Pertussis, Tetanus Vaccination: Yes Review of Systems - Review of Systems Notes: Constitutional: denies: Chills, Diaphoresis, Fever, Malaise, Weakness EENT: denies: Eye discharge, Blurred vision, Tearing, Double vision, Nose congestion, Nose discharge, Throat swelling, Mouth pain Cardiovascular: denies: Palpitations, Heart racing, Orthopnea, Dyspnea, Chest pain Respiratory: denies: Cough, Hurts to breathe, Wheezing, Shortness of breath Gastrointestinal: denies: Abdominal pain, Diarrhea, Black stools, bright red blood in stool. Does complain of nausea Genitourinary: denies: Burning, Dysuria, Discharge, Frequency, Flank pain, Hematuria Musculoskeletal: Is complaining of joint pain mostly in the elbows, shoulders, hands, toes, knees. Hematologic/Lymphatic: denies: Anemia, Easy bleeding, Easy bruising, Blood clots Neurological/Psychological: denies: Confusion, Dementia, Depression, Loss of consciousness Skin: No lesions, no masses, no skin breakdown, no abscesses Physical Exam - Vital signs Vitals: Temp Pulse Resp BP Pulse Ox 98.2 F 89 14 131/97 H 100 05/09/18 10:19 05/09/18 10:19 05/09/18 10:19 05/09/18 10:19 05/09/18 10:19 Interpretation: Normal - General General appearance: Appears well, Alert - HEENT Head: Normocephalic, Atraumatic Eyes: Normal Pupils: PERRL - Respiratory Respiratory status: No respiratory distress Chest status: Nontender Breath sounds: Normal Chest palpation: Normal - Cardiovascular Rhythm: Regular Heart sounds: Normal auscultation Murmur: No - Abdominal Inspection: Normal Distension: No distension Bowel sounds: Normal Tenderness: Nontender Organomegaly: No organomegaly - Back Back: Normal, Nontender - Extremities General upper extremity: Normal inspection, Nontender, Normal color, Normal ROM , Normal temperature General lower extremity: Normal inspection, Nontender, Normal color, Normal ROM , Normal temperature, Normal weight bearing. No: Shanda's sign - Neurological Neuro grossly intact: Yes Cognition: Normal Orientation: AAOx4 Aamir Coma Scale Eye Opening: Spontaneous Aamir Coma Scale Verbal: Oriented Aamir Coma Scale Motor: Obeys Commands [place] Coma Scale Total: 15 Speech: Normal Motor strength normal: LUE, RUE, LLE, RLE Sensory: Normal - Psychological Associated symptoms: Normal affect, Normal mood - Skin Skin Temperature: Warm Skin Moisture: Dry Skin Color: Normal Course - Re-evaluation Re-evalutation: 05/09/18 14:28 Laboratory 05/09/18 05/09/18 05/09/18 11:05 11:05 11:05 WBC 9.9 RBC 4.41 Hgb 14.0 Hct 40.6 MCV 92 MCH 31.6 MCHC 34.3 RDW 13.1 Plt Count 286 Seg Neutrophils % 60.6 Lymphocytes % 29.0 Monocytes % 6.1 Eosinophils % 3.4 Basophils % 0.9 Absolute Neutrophils 6.0 Absolute Lymphocytes 2.9 Absolute Monocytes 0.6 Absolute Eosinophils 0.3 Absolute Basophils 0.1 Sodium 140.4 Potassium 4.1 Chloride 103 Carbon Dioxide 27 Anion Gap 10 BUN 7 Creatinine 0.60 Est GFR ( Amer) > 60 Est GFR (Non-Af Amer) > 60 Glucose 98 Calcium 9.8 Total Bilirubin 0.4 Direct Bilirubin 0.3 Neonat Total Bilirubin Not Reportable Neonat Direct Bilirubin Not Reportable Neonat Indirect Bili Not Reportable AST 18 ALT 18 Alkaline Phosphatase 59 Total Protein 7.8 Albumin 4.2 Lipase 121.0 Serum HCG, Qual NEGATIVE Urine Color Urine Appearance Urine pH Ur Specific [place] Urine Protein Urine Glucose (UA) Urine Ketones Urine Blood Urine Nitrite Urine Bilirubin Urine Urobilinogen Ur Leukocyte Esterase Urine WBC Ur Squamous Epith Cells Urine Bacteria Urine Ascorbic Acid 05/09/18 11:05 WBC RBC Hgb Hct MCV MCH MCHC RDW Plt Count Seg Neutrophils % Lymphocytes % Monocytes % Eosinophils % Basophils % Absolute Neutrophils Absolute Lymphocytes Absolute Monocytes Absolute Eosinophils Absolute Basophils Sodium Potassium Chloride Carbon Dioxide Anion Gap BUN Creatinine Est GFR ( Amer) Est GFR (Non-Af Amer) Glucose Calcium Total Bilirubin Direct Bilirubin Neonat Total Bilirubin Neonat Direct Bilirubin Neonat Indirect Bili AST ALT Alkaline Phosphatase Total Protein Albumin Lipase Serum HCG, Qual Urine Color LIGHT YELLOW Urine Appearance CLEAR Urine pH 8.0 Ur Specific [place] 1.017 Urine Protein NEGATIVE Urine Glucose (UA) NEGATIVE Urine Ketones NEGATIVE Urine Blood NEGATIVE Urine Nitrite NEGATIVE Urine Bilirubin NEGATIVE Urine Urobilinogen NEGATIVE Ur Leukocyte Esterase TRACE H Urine WBC 1-5 Ur Squamous Epith Cells MODERATE Urine Bacteria TRACE Urine Ascorbic Acid NEGATIVE 05/09/18 14:46 Patient's labs are fairly unremarkable. Went in to discuss the lab findings and treatment plan and patient had eloped. I did speak with the nurse and nurse states that patient was upset that she was not getting "something stronger ". I believe patient was expecting some narcotic pain medication for her myalgias. Regardless, patient was discharged but did not receive her paperwork because she left before receiving it. - Vital Signs Vital signs: Temp Pulse Resp BP Pulse Ox 98.2 F 89 14 131/97 H 100 05/09/18 10:19 05/09/18 10:19 05/09/18 10:19 05/09/18 10:19 05/09/18 10:19 - Laboratory Result Diagrams: 05/09/18 11:05 05/09/18 11:05 Laboratory results interpreted by me: 05/09/18 11:05 Ur Leukocyte Esterase TRACE H Discharge - Discharge Clinical Impression: Myalgia Condition: Good Disposition: HOME, SELF-CARE Instructions: Arthritis ([facility]) Additional Instructions: It will be very important that you find a primary care doctor to deal with the pain for which you are having. There does not appear to be any significant laboratory abnormalities. Please follow-up with a primary care doctor or a box truck driver for further testing. Return to the emergency department for any worsening symptoms or concerns. Prescriptions: Meloxicam 7.5 mg PO DAILY 20 Days #20 tablet Ondansetron [Zofran Odt 4 mg Tablet] 1 - 2 tab PO Q4H PRN #15 tab.rapdis PRN Reason: For Nausea/Vomiting Referrals: MIGUE HORTON MD [COMMUNITY BASED STAFF] - Follow up as needed CHON DODSON MD [ACTIVE STAFF] - Follow up in 1 week
== END 2018-05-09 14:32 | disposition home or self-care (01) ==
LOC: ER 10:16
DX: M79.1 Myalgia (principal); F17.200 Nicotine dependence, unspecified, uncomplicated; R11.2 Nausea with vomiting, unspecified; R19.7 Diarrhea, unspecified; M13.88 Other specified arthritis, other site; M25.522 Pain in left elbow; M25.521 Pain in right elbow; M25.512 Pain in left shoulder; M25.511 Pain in right shoulder; M25.542 Pain in joints of left hand; M25.541 Pain in joints of right hand; M25.562 Pain in left knee; M25.561 Pain in right knee; M25.572 Pain in left ankle and joints of left foot; M25.571 Pain in right ankle and joints of right foot; Z98.890 Other specified postprocedural states; Z82.61 Family history of arthritis; Z98.51 Tubal ligation status
CPT/HCPCS: 36415; 80053; 81001; 83690; 84703; 85025; 85652; 86140; 86430; 99281

== ENCOUNTER 2018-11-04 02:57 | Emergency (ER) | payer SELFPAY ==
[2018-11-04] MEDS ORDERED: NORMAL SALINE 1000 ML 1,000 ML IV ONE (03:30)
[2018-11-04] MEDS ORDERED: DIPHENHYDRAMINE HCL 50 MG/ML VIAL IV ONE (03:30)
[2018-11-04] MEDS ORDERED: KETOROLAC TROMETHAMINE INJ/PF 30 MG/1 ML SDV IV ONE ×2 (03:30→04:32)
[2018-11-04 04:16] LABS: ABSOLUTE EOSINOPHILS # (AUTO) 0.1 10^3/uL (0.0-0.6); ABSOLUTE MONOCYTES (AUTO) 0.6 10^3/uL (0.1-1.4); ABSOLUTE NEUT (AUTO) 8.1 10^3/uL (1.7-8.2); BASOPHILS % (AUTO) 0.4 % (0-2); EOSINOPHILS % (AUTO) 0.9 % (0-6); HEMOGLOBIN 13.3 g/dL (12.0-15.5); LYMPHOCYTES % (AUTO) 10.4 % (13-45); MEAN CORPUSCULAR HEMOGLOBIN 31.9 pg (27.0-33.4); MEAN CORPUSCULAR HGB CONC 34.1 g/dL (32.0-36.0); MEAN CORPUSCULAR VOLUME 94 fl (80-97); MONOCYTES % (AUTO) 5.8 % (3-13); PLATELET COUNT 297 10^3/uL (150-450); RED BLOOD COUNT 4.18 10^6/uL (3.72-5.28); RED CELL DISTRIBUTION WIDTH 12.9 % (11.5-14.0); SEGMENTED NEUTROPHILS % (AUTO) 82.5 % (42-78); TOTAL CELLS COUNTED % (AUTO) 100 %; WHITE BLOOD COUNT 9.9 10^3/uL (4.0-10.5)
[2018-11-04 04:19] LABS: APPEARANCE,URINE CLEAR; BILIRUBIN,URINE NEGATIVE (NEGATIVE); COLOR,URINE STRAW; GLUCOSE, URINE NEGATIVE (NEGATIVE); KETONES,URINE NEGATIVE (NEGATIVE); LEUKOCYTE ESTERASE,URINE NEGATIVE (NEGATIVE); NITRITE,URINE NEGATIVE (NEGATIVE); PROTEIN,URINE NEGATIVE (NEGATIVE); URINE SPECIFIC GRAVITY 1.008; UROBILINOGEN,URINE NEGATIVE mg/dL (<2.0)
[2018-11-04 04:29] LABS: ALANINE AMINOTRANSFERASE 16 U/L (9-52); ALBUMIN 4.1 g/dL (3.5-5.0); ALKALINE PHOSPHATASE 66 U/L (38-126); ANION GAP 8 (5-19); ASPARTATE AMINO TRANSFERASE 17 U/L (14-36); BILIRUBIN,DIRECT 0.3 mg/dL (0.0-0.4); BILIRUBIN,TOTAL 0.4 mg/dL (0.2-1.3); BLOOD UREA NITROGEN 12 mg/dL (7-20); CALCIUM 9.6 mg/dL (8.4-10.2); CARBON DIOXIDE 25 mmol/L (22-30); CHLORIDE 107 mmol/L (98-107); GLUCOSE 99 mg/dL (75-110); POTASSIUM 4.1 mmol/L (3.6-5.0); TOTAL PROTEIN 7.2 g/dL (6.3-8.2)
[2018-11-04] MEDS ORDERED: METHYLPREDNISOLONE INJ 125 MG/2 ML SDV IV ONE (04:32)
[2018-11-04] MEDS ORDERED: DEXAMETHASONE SOD PHOS INJ 10 MG/1 ML VIAL IV ONE (05:18)
[2018-11-04] MEDS ORDERED: ONDANSETRON ODT 4 MG TAB (6 TAB/ER DISP) PO PRN (05:24)
[2018-11-04 05:40] VITALS: BP 118/69
--- NOTE | 2018-11-04 05:47 | ER Document Report ---
Entered by THAIS RAMSEY SCRIBE 11/04/18 0342 Acting as scribe for:DOMINIK LINDSEY MD ED GI/ - General Chief Complaint: Nausea/Vomiting/Diarrhea Stated Complaint: NAUSEA Time Seen by Provider: 11/04/18 03:16 Mode of Arrival: Ambulatory Information source: Patient Notes: 33 year old female that presents to the emergency department today with complaints of a sore throat x5 days along with diarrhea and vomiting which began tonight at around 1000. Patient states she has not taken her temperature but she has had chills. Patient states the only medication she takes is Goody's Powder. Patient denies fevers. TRAVEL OUTSIDE OF THE [place] IN LAST 30 DAYS: No - Related Data Allergies/Adverse Reactions: cyclobenzaprine HCl [From Flexeril] Allergy (Verified 11/04/18 03:57) fluoxetine HCl [From Prozac] Allergy (Verified 11/04/18 03:57) ibuprofen [Ibuprofen] Allergy (Verified 11/04/18 03:57) prochlorperazine edisylate [From Compazine] Allergy (Verified 11/04/18 03:57) prochlorperazine maleate [From Compazine] Allergy (Verified 11/04/18 03:57) promethazine HCl [From Phenergan] Allergy (Verified 11/04/18 03:57) Past Medical History - General Information source: Patient - Social History Smoking Status: Current Every Day Smoker Cigarette use (# per day): Yes Frequency of alcohol use: None - previous heavy abuse, states stopped x2 years ago Lives with: Family Family History: Reviewed & Not Pertinent Pulmonary Medical History: Reports: Hx Asthma - as a child Neurological Medical History: Reports: Hx Migraine Musculoskeletal Medical History: 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 denies: Fever EENT: See HPI, Throat pain Cardiovascular: No symptoms reported Respiratory: No symptoms reported Gastrointestinal: See HPI, Diarrhea, Nausea, Vomiting Genitourinary: No symptoms reported Female Genitourinary: No symptoms reported Musculoskeletal: No symptoms reported Skin: No symptoms reported Hematologic/Lymphatic: No symptoms reported Neurological/Psychological: No symptoms reported -: Yes All other systems reviewed and negative Physical Exam - Notes Notes: Physical Exam: General: Alert, appears well. HEENT: Normocephalic. Atraumatic. PERRL. Extraocular movements intact. Oropharynx clear. Right anterior cervical lymph nodes are tender with palpation. Posterior oropharynx erythema. Neck: Supple. Posterior cervical musculature tenderness with palpation. Respiratory: No respiratory distress. Clear and equal breath sounds bilaterally. Cardiovascular: Regular rate and rhythm. Abdominal: Normal Inspection. Non-tender. No distension. Normal Bowel Sounds. Back: Non-tender. No deformity or step off. Extremities: Moves all four extremities. Upper extremities: Normal inspection. Normal ROM. Lower extremities: Normal inspection. No edema. Normal ROM. Neurological: Normal cognition. AAOx4. Normal speech. Psychological: Normal affect. Normal Mood. Skin: Warm. Dry. Normal color. Course - Re-evaluation Re-evalutation: 11/04/18 05:22 The patient is feeling much better after the fluids, Benadryl, and Toradol. She obviously does not have an allergy to Toradol. The allergic reaction she reported that she thought she had to Motrin and Toradol in the past involved her arms and hands jerking and I informed her that did not sound like an allergic reaction to me. 11/04/18 05:24 The patient has not had any diarrhea or vomiting since she got here. - Laboratory Result Diagrams: 11/04/18 03:46 11/04/18 03:46 Laboratory results interpreted by me: 11/04/18 11/04/18 03:46 03:46 Seg Neutrophils % 82.5 H Lymphocytes % 10.4 L Urine Blood MODERATE H Discharge - Discharge Clinical Impression: Viral pharyngitis, Nausea, vomiting and diarrhea Condition: Stable Disposition: HOME, SELF-CARE Additional Instructions: Sore Throat: Sore throats may be caused by viruses, bacteria, or fungi. Most are due to a virus, and must get better on their own. Bacterial sore throats, particularly those due to "strep," need treatment with antibiotics. If an antibiotic is prescribed, be sure to take the medication for a full 10 days. Failure to take the antibiotic can result in complications such as rheumatic fever. Sometimes, an injection of antibiotics is given instead of pills or liquid. This single "shot" is equal in effectiveness to the oral medication. To relieve symptoms, take acetaminophen for pain. Sip clear liquids frequently, or eat popsicles or ice chips. Anesthetic sprays or lozenges may help. Make sure the air in the room is not too dry. Avoid using decongestants or antihistamines. Call the doctor if there is no improvement in two days, or if you have difficulty breathing, increasing throat pain, high fever, rash, or frequent vom iting. Gastroenteritis: You most likely have gastroenteritis. This is an irritation of the stomach and intestinal tract. It's usually caused by a virus, but can also be caused by bacteria, toxins that cause food poisoning, or excessive alcohol intake. Symptoms may include fever, painful abdominal cramps, nausea, vomiting, and diarrhea. Start with small amounts (two to six ounces) of clear liquids (soft drinks, herb teas, broth, etc). Try to take fluids frequently even if you are vomiting, to prevent dehydration. When liquids are being consumed successfully, advance to small amounts of bland food (mashed potato, toast) for 6 - 12 hours. Gastroenteritis rarely requires medication. It goes away by itself. Use good handwashing so you don't spread germs. Wash underwear in very hot water. If symptoms are severe, talk to the doctor. Call your physician if blood appears in your vomitus or stool, if vomiting lasts longer than 24 hours, if the abdominal pain worsens or becomes localized to one area, or if you develop high fever. Drink cool clear liquids today. Take the Zofran for nausea if needed. Take Tylenol for fever and pain as needed. Follow-up with a local medical doctor if not improving. RETURN TO THE EMERGENCY ROOM IF ANY NEW OR WORSENING SYMPTOMS. Forms: Return to Work Scribe Attestation: 11/04/18 04:31 I personally performed the services described in the documentation, reviewed and edited the documentation which was dictated to the scribe in my presence, and it accurately records my words and actions. I personally performed the services described in the documentation, reviewed and edited the documentation which was dictated to the scribe in my presence, and it accurately records my words and actions.
== END 2018-11-04 05:57 | disposition home or self-care (01) ==
LOC: ER 02:57
DX: J02.9 Acute pharyngitis, unspecified (principal); R11.2 Nausea with vomiting, unspecified; R19.7 Diarrhea, unspecified; F17.210 Nicotine dependence, cigarettes, uncomplicated; Z88.6 Allergy status to analgesic agent; Z98.51 Tubal ligation status
CPT/HCPCS: 96376; 99283; 96361; 96374; 96375; 36415; 87070; 87880; 85025; 80053; 81001; J1200; J1885; J7030; J1100

== ENCOUNTER → 2018-12-24 | Outpatient (CLI) | payer OTHER ==
[2018-12-24 08:58] LABS: ABSOLUTE BASOPHILS # (AUTO) 0.1 10^3/uL (0.0-0.2); ABSOLUTE EOSINOPHILS # (AUTO) 0.3 10^3/uL (0.0-0.6); ABSOLUTE LYMPHOCYTES (AUTO) 2.6 10^3/uL (0.5-4.7); ABSOLUTE MONOCYTES (AUTO) 0.6 10^3/uL (0.1-1.4); ABSOLUTE NEUT (AUTO) 3.3 10^3/uL (1.7-8.2); BASOPHILS % (AUTO) 0.8 % (0-2); EOSINOPHILS % (AUTO) 4.8 % (0-6); HEMATOCRIT 39.6 % (36.0-47.0); HEMOGLOBIN 13.6 g/dL (12.0-15.5); LYMPHOCYTES % (AUTO) 37.9 % (13-45); MEAN CORPUSCULAR HEMOGLOBIN 32.2 pg (27.0-33.4); MEAN CORPUSCULAR HGB CONC 34.5 g/dL (32.0-36.0); MEAN CORPUSCULAR VOLUME 93 fl (80-97); MONOCYTES % (AUTO) 8.8 % (3-13); PLATELET COUNT 284 10^3/uL (150-450); RED BLOOD COUNT 4.24 10^6/uL (3.72-5.28); SEGMENTED NEUTROPHILS % (AUTO) 47.7 % (42-78); TOTAL CELLS COUNTED % (AUTO) 100 %; WHITE BLOOD COUNT 6.8 10^3/uL (4.0-10.5)
[2018-12-24 09:26] LABS: ALANINE AMINOTRANSFERASE 16 U/L (9-52); ALKALINE PHOSPHATASE 55 U/L (38-126); ANION GAP 8 (5-19); ASPARTATE AMINO TRANSFERASE 14 U/L (14-36); BILIRUBIN,DIRECT 0.2 mg/dL (0.0-0.4); BILIRUBIN,TOTAL 0.2 mg/dL (0.2-1.3); BLOOD UREA NITROGEN 15 mg/dL (7-20); CALCIUM 9.9 mg/dL (8.4-10.2); CARBON DIOXIDE 25 mmol/L (22-30); CHLORIDE 106 mmol/L (98-107); CHOLESTEROL 187.07 mg/dL (0-200); GLUCOSE 95 mg/dL (75-110); POTASSIUM 4.9 mmol/L (3.6-5.0); SODIUM 139.3 mmol/L (137-145); TOTAL PROTEIN 7.3 g/dL (6.3-8.2); TRIGLYCERIDES 83 mg/dL (<150)
[2018-12-24 09:38] LABS: DIRECT LDL 148 mg/dL (<100)
== END ==
LOC: CCC 08:00
DX: Z00.00 Encounter for general adult medical examination without abnormal findings (principal)
CPT/HCPCS: 36415; 80053; 80061; 83036; 84443; 85025

== ENCOUNTER 2019-01-01 08:55 | Emergency (ER) | payer OTHER ==
[2019-01-01] MEDS ORDERED: ACETAMINOPHEN 325 MG TABLET PO ONE (09:31)
[2019-01-01] MEDS ORDERED: LEVALBUTEROL HCL NEB 1.25 MG/3 ML AMPUL NEB ONE (09:31)
--- NOTE | 2019-01-01 09:34 | ER Document Report ---
ED Medical Screen (RME) - General Chief Complaint: Cough Stated Complaint: COUGH Time Seen by Provider: 01/01/19 09:25 Primary Care Provider: [facility] [Primary Care Provider] - Follow up as needed Mode of Arrival: Ambulatory Information source: Patient TRAVEL OUTSIDE OF THE [place] IN LAST 30 DAYS: No - HPI Patient complains to provider of: COUGH Notes: 01/01/19 09:32 Patient here with complaints of cough. Patient states that she had a cough for the last 3 days. She reports having a fever yesterday. She had one episode of vomiting after coughing. She also complains of a headache. No neck stiffness. No difficulty breathing. She complains of some pain in her "lungs "when she is coughing only. Patient is a smoker. She denies any chronic lung problems. No daily medications. Exam Nontoxic, no distress. Frequent cough noted. Scattered expiratory wheezes noted throughout. Nonfocal neuro exam. No neck stiffness. Mild tachycardia. Plan Chest x-ray, Xopenex breathing treatment due to mild tachycardia, Tylenol for pain. An initial examination was made on the patient as part of the triage process, and it was determined a more comprehensive evaluation was necessary. Initial labs were ordered and patient was transferred to another provider in the ED who assumed care and finished evaluation and plan. - Related Data Allergies/Adverse Reactions: cyclobenzaprine HCl [From Flexeril] Allergy (Verified 01/01/19 08:58) fluoxetine HCl [From Prozac] Allergy (Verified 01/01/19 08:58) ibuprofen [Ibuprofen] Allergy (Verified 01/01/19 08:58) prochlorperazine edisylate [From Compazine] Allergy (Verified 01/01/19 08:58) prochlorperazine maleate [From Compazine] Allergy (Verified 01/01/19 08:58) promethazine HCl [From Phenergan] Allergy (Verified 01/01/19 08:58) Past Medical History - Social History Family history: None Pulmonary Medical History: Reports: Hx Asthma - as a child Neurological Medical History: Reports: Hx Migraine Renal/ Medical History: Denies: Hx Peritoneal Dialysis Musculoskeltal Medical History: 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 Denies: Hx Pacemaker - Immunizations Hx Diphtheria, Pertussis, Tetanus Vaccination: Yes Physical Exam - Vital signs Vitals: Temp Pulse Resp BP Pulse Ox 98.6 F 116 H 17 144/89 H 96 01/01/19 09:00 01/01/19 09:00 01/01/19 09:00 01/01/19 09:00 01/01/19 09:00 Course - Vital Signs Vital signs: Temp Pulse Resp BP Pulse Ox 98.6 F 116 H 17 144/89 H 96 01/01/19 09:00 01/01/19 09:00 01/01/19 09:00 01/01/19 09:00 01/01/19 09:00 Doctor's Discharge - Discharge [facility]: [facility] [Primary [facility]] - Follow up as needed
[2019-01-01] MEDS ORDERED: ALBUTEROL SULFATE HFA (90 MCG/PUFF) 8 GM MDI (1 MDI/ER DISP) IH PRN (10:19)
[2019-01-01] MEDS ORDERED: GUAIFENESIN 600 MG TABLET.SA PO ONE (10:19)
[2019-01-01] MEDS ORDERED: IPRATROPIUM/ALBUTEROL 0.5-2.5 MG/3 ML AMPUL NEB ONE (10:19)
[2019-01-01] MEDS ORDERED: OXYCODONE HCL IR 5 MG TABLET PO ONE (10:20)
[2019-01-01] MEDS ORDERED: PREDNISONE 20 MG TABLET PO ONE (10:20)
--- NOTE | 2019-01-01 10:21 | ER Document Report ---
ED General - General Chief Complaint: Cough Stated Complaint: COUGH Time Seen by Provider: 01/01/19 09:25 [facility] [NO [facility]AL MD] - Follow up in 3-5 days Mode of Arrival: Ambulatory Information source: Patient Notes: This is a 33-year-old female with a history of asthma, cigarette smoking who presents to the emergency room with cough, wheezing, shortness of breath, sinus discharge and headache. Patient's had symptoms for 3 days. Patient denies any photophobia or neck stiffness. She does report having significant nasal disc harge and productive cough. TRAVEL OUTSIDE OF THE [place] IN LAST 30 DAYS: No - HPI Onset: Last week Onset/Duration: Gradual Quality of pain: Dull Severity: Moderate Pain Level: 2 Associated symptoms: Productive cough, Shortness of breath Exacerbated by: Coughing Relieved by: Denies Similar symptoms previously: Yes Recently seen / treated by doctor: Yes - Related Data Allergies/Adverse Reactions: cyclobenzaprine HCl [From Flexeril] Allergy (Verified 01/01/19 09:35) fluoxetine HCl [From Prozac] Allergy (Verified 01/01/19 09:35) ibuprofen [Ibuprofen] Allergy (Verified 01/01/19 09:35) prochlorperazine edisylate [From Compazine] Allergy (Verified 01/01/19 09:35) prochlorperazine maleate [From Compazine] Allergy (Verified 01/01/19 09:35) promethazine HCl [From Phenergan] Allergy (Verified 01/01/19 09:35) Past Medical History - General Information source: Patient - Social History Smoking Status: Current Every Day Smoker Cigarette use (# per day): Yes Chew tobacco use (# tins/day): No Frequency of alcohol use: None Drug Abuse: None Lives with: Family Family History: Reviewed & Not Pertinent Patient has suicidal ideation: No Patient has homicidal ideation: No - Past Medical History Cardiac Medical History: Reports: None Pulmonary Medical History: Reports: Hx Asthma - as a child Neurological Medical History: Reports: Hx Migraine Renal/ Medical History: Denies: Hx Peritoneal Dialysis Musculoskeletal Medical History: 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 Denies: Hx Pacemaker - Immunizations Hx Diphtheria, Pertussis, Tetanus Vaccination: Yes Review of Systems - Review of Systems Constitutional: Fever. denies: Chills EENT: Nose congestion, Sinus pressure, Sinus discharge Cardiovascular: denies: Chest pain, Palpitations, Heart racing Respiratory: Cough, Hurts to breathe, Short of breath, Wheezing Gastrointestinal: No symptoms reported Genitourinary: No symptoms reported Female Genitourinary: No symptoms reported Musculoskeletal: See HPI Skin: No symptoms reported Hematologic/Lymphatic: No symptoms reported Neurological/Psychological: No symptoms reported Physical Exam - Vital signs Vitals: Temp Pulse Resp BP Pulse Ox 98.6 F 116 H 17 144/89 H 96 01/01/19 09:00 01/01/19 09:00 01/01/19 09:00 01/01/19 09:00 01/01/19 09:00 Notes: Physical exam: GENERAL: Patient is alert and oriented x3, no acute distress HEAD: Atraumatic, normocephalic. EYES: Pupils equal round and reactive to light, extraocular movements intact, sclera anicteric, conjunctiva are normal. ENT: TMs normal, nares patent, oropharynx clear without exudates. Moist mucous membranes. NECK: Normal range of motion, supple without obvious mass or JVD. LUNGS: Wheezing bilaterally HEART: Regular rate and rhythm without murmurs, rubs or gallops. ABDOMEN: Soft, normoactive bowel sounds. No tenderness to palpation. No guarding, no rebound. No masses appreciated. EXTREMITIES: Normal range of motion, no pitting or edema. No clubbing or cyanosis. NEUROLOGICAL: Cranial nerves II through XII grossly intact. Neck supple, no photophobia normal speech, moving all extremities. PSYCH: Normal mood, normal affect. SKIN: Warm, Dry, normal turgor, no rashes or lesions noted. Course - Vital Signs Vital signs: Temp Pulse Resp BP Pulse Ox 98.1 F 107 H 17 142/68 H 97 01/01/19 11:37 01/01/19 11:37 01/01/19 09:00 01/01/19 11:37 01/01/19 11:37 - Diagnostic Test Radiology reviewed: Image reviewed, Reports reviewed - Chest x-ray shows no pneumonia Discharge - Discharge Clinical Impression: Bronchitis with bronchospasm Condition: Stable Disposition: HOME, SELF-CARE Additional Instructions: As we discussed, the chest x-ray showed no evidence of pneumonia. I want you to take nasal saline which is sold in pharmacies: Irrigate both nostrils daily to allow appropriate drainage of the sinuses. Take the medicines as prescribed. Follow-up with the [facility]. Try and cut down on the cigarettes more. The pain medicine you're taking prescribed as a narcotic. There are several important things you should know about this medicine: 1. This medicine contains Tylenol: It is important that you do not take Tylenol (or acetaminophen) while on this medicine. Tylenol is metabolized by the liver and taking too much Tylenol (acetaminophen) can lay to liver damage and even liver failure. 2. Taking narcotics for too long can lead to physical and mental dependence. Take this medicine only if really needed and in the lowest quantity to achieve pain relief. 3. Do not drink alcohol while on this medicine. Alcohol interacts with narcotics and the combination can be dangerous. 4. Do not drive or operate machinery while on this medicine. 5. Narcotics do cause constipation, so drink plenty of fluids and daily stool softeners. Prescriptions: Oxycodone HCl 5 mg PO Q6HP PRN #10 ml PRN Reason: Doxycycline Hyclate 100 mg PO BID #20 capsule Guaifenesin [Mucus ER] 600 mg PO BID #10 tab.er.12h Ondansetron HCl [Zofran 4 mg Tablet] 1 - 2 tab PO Q4H PRN #10 tablet PRN Reason: Prednisone [Deltasone 20 mg Tablet] 3 tab PO DAILY 5 Days tablet Forms: Return to Work [facility]: [facility] [NO [facility]AL MD] - Follow up in 3-5 days
[2019-01-01] MEDS ORDERED: DOXYCYCLINE HYCLATE 100 MG TABLET PO ONE (10:22)
--- NOTE | 2019-01-01 11:01 | RADIOLOGY REPORT (SQ) ---
EXAM DESCRIPTION: CHEST 2 VIEWS COMPLETED DATE/TIME: 01/01/2019 10:44 am REASON FOR STUDY: COUGH COMPARISON: None. EXAM PARAMETERS: NUMBER OF VIEWS: two views TECHNIQUE: Digital Frontal and Lateral radiographic views of the chest acquired. RADIATION DOSE: NA LIMITATIONS: none FINDINGS: LUNGS AND PLEURA: No opacities, masses or pneumothorax. No pleural effusion. MEDIASTINUM AND HILAR STRUCTURES: No masses or contour abnormalities. HEART AND VASCULAR STRUCTURES: Heart normal size. No evidence for failure. BONES: No acute findings. HARDWARE: None in the chest. OTHER: No other significant finding. IMPRESSION: NO ACUTE RADIOGRAPHIC FINDING IN THE CHEST. TECHNICAL DOCUMENTATION: JOB ID: [id number] [employer]- All Rights Reserved Reading location - IP/workstation name: [email or web address]
[2019-01-01 11:55] VITALS: BP 142/68
== END 2019-01-01 11:55 | disposition home or self-care (01) ==
LOC: ER 08:55
DX: J45.909 Unspecified asthma, uncomplicated (principal); R05 Cough; R09.89 Other specified symptoms and signs involving the circulatory and respiratory systems; R51 Headache; F17.210 Nicotine dependence, cigarettes, uncomplicated
CPT/HCPCS: 94640 ×2; 99283; 71046; J7512; J3490 ×2; J7620

== ENCOUNTER 2019-01-01 20:15 | Emergency (ER) | payer OTHER ==
[2019-01-01 20:27] VITALS: BP 149/86
--- NOTE | 2019-01-01 23:03 | EKG REPORT ---
SEVERITY:- ABNORMAL ECG - SINUS TACHYCARDIA LEFT ATRIAL ABNORMALITY BORDERLINE T ABNORMALITIES, INFERIOR LEADS : Confirmed by: Charlie Long 01-Jan-2019 23:02:07
== END 2019-01-01 22:23 | disposition left against medical advice (07) ==
LOC: ER 20:15
DX: Z53.21 Procedure and treatment not carried out due to patient leaving prior to being seen by health care provider (principal); R07.9 Chest pain, unspecified
CPT/HCPCS: 93005; 93010

== ENCOUNTER 2019-01-06 10:35 | Emergency (ER) | payer OTHER ==
[2019-01-06] MEDS ORDERED: IPRATROPIUM/ALBUTEROL 0.5-2.5 MG/3 ML AMPUL NEB ONE (11:09)
[2019-01-06] MEDS ORDERED: BENZONATATE 100 MG CAPSULE PO ONE (11:09)
--- NOTE | 2019-01-06 11:11 | ER Document Report ---
ED Medical Screen (RME) - General Chief Complaint: Cough Stated Complaint: COUGH Time Seen by Provider: 01/06/19 11:08 Primary Care Provider: SAM NGUYEN MD [Primary Care Provider] - Follow up as needed Mode of Arrival: Ambulatory Information source: Patient Notes: 33-year-old female with wheezing short of breath. She also has migraines pain in her lower back and hips. She states she was having fevers last week but she is not having fevers now. She was states that the symptoms started on 12/28 and was seen in the emergency room on . She states she was started on bronchodilators and steroids and she took her last 60 mg of prednisone this morning. She states she is not feeling better she started feeling better a little bit and then got worse. She does have wheezes at this time. I have greeted and performed a rapid initial assessment of this patient. A comprehensive ED assessment and evaluation of the patient, analysis of test results and completion of medical decision making process will be conducted by an additional ED providers. TRAVEL OUTSIDE OF THE [place] IN LAST 30 DAYS: No - Related Data Allergies/Adverse Reactions: cyclobenzaprine HCl [From Flexeril] Allergy (Verified 01/06/19 10:41) fluoxetine HCl [From Prozac] Allergy (Verified 01/06/19 10:41) ibuprofen [Ibuprofen] Allergy (Verified 01/06/19 10:41) prochlorperazine edisylate [From Compazine] Allergy (Verified 01/06/19 10:41) prochlorperazine maleate [From Compazine] Allergy (Verified 01/06/19 10:41) promethazine HCl [From Phenergan] Allergy (Verified 01/06/19 10:41) Past Medical History - Social History Chew tobacco use (# tins/day): No Frequency of alcohol use: None Drug Abuse: None Family history: None Pulmonary Medical History: Reports: Hx Asthma - as a child Neurological Medical History: Reports: Hx Migraine Renal/ Medical History: Denies: Hx Peritoneal Dialysis Musculoskeltal Medical History: 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 Denies: Hx Pacemaker - Immunizations Hx Diphtheria, Pertussis, Tetanus Vaccination: Yes Physical Exam - Vital signs Vitals: Temp Pulse Resp BP Pulse Ox 98.0 F 93 16 151/80 H 96 01/06/19 10:50 01/06/19 10:50 01/06/19 10:50 01/06/19 10:50 01/06/19 10:50 Course - Vital Signs Vital signs: Temp Pulse Resp BP Pulse Ox 98.0 F 93 16 151/80 H 96 01/06/19 10:50 01/06/19 10:50 01/06/19 10:50 01/06/19 10:50 01/06/19 10:50 Doctor's Discharge - Discharge Referrals: SAM NGUYEN MD [Primary Care Provider] - Follow up as needed
[2019-01-06 11:31] LABS: ABSOLUTE LYMPHOCYTES (AUTO) 1.3 10^3/uL (0.5-4.7); ABSOLUTE MONOCYTES (AUTO) 0.3 10^3/uL (0.1-1.4); ABSOLUTE NEUT (AUTO) 8.2 10^3/uL (1.7-8.2); BASOPHILS % (AUTO) 0.2 % (0-2); EOSINOPHILS % (AUTO) 0.1 % (0-6); HEMOGLOBIN 12.3 g/dL (12.0-15.5); LYMPHOCYTES % (AUTO) 13.5 % (13-45); MEAN CORPUSCULAR HEMOGLOBIN 31.5 pg (27.0-33.4); MEAN CORPUSCULAR HGB CONC 34.1 g/dL (32.0-36.0); MEAN CORPUSCULAR VOLUME 92 fl (80-97); MONOCYTES % (AUTO) 3.4 % (3-13); PLATELET COUNT 397 10^3/uL (150-450); RED CELL DISTRIBUTION WIDTH 12.8 % (11.5-14.0); SEGMENTED NEUTROPHILS % (AUTO) 82.8 % (42-78); TOTAL CELLS COUNTED % (AUTO) 100 %; WHITE BLOOD COUNT 9.9 10^3/uL (4.0-10.5)
[2019-01-06 11:40] LABS: APPEARANCE,URINE SLIGHTLY-CLOUDY; BILIRUBIN,URINE NEGATIVE (NEGATIVE); COLOR,URINE AMBER; GLUCOSE, URINE NEGATIVE (NEGATIVE); KETONES,URINE NEGATIVE (NEGATIVE); LEUKOCYTE ESTERASE,URINE NEGATIVE (NEGATIVE); NITRITE,URINE NEGATIVE (NEGATIVE); PROTEIN,URINE NEGATIVE (NEGATIVE); URINE SPECIFIC GRAVITY 1.027
[2019-01-06 11:53] LABS: ALANINE AMINOTRANSFERASE 29 U/L (9-52); ALBUMIN 3.7 g/dL (3.5-5.0); ALKALINE PHOSPHATASE 50 U/L (38-126); ANION GAP 12 (5-19); ASPARTATE AMINO TRANSFERASE 20 U/L (14-36); BILIRUBIN,DIRECT 0.3 mg/dL (0.0-0.4); BILIRUBIN,TOTAL 0.3 mg/dL (0.2-1.3); BLOOD UREA NITROGEN 16 mg/dL (7-20); CARBON DIOXIDE 28 mmol/L (22-30); CHLORIDE 103 mmol/L (98-107); GLUCOSE 101 mg/dL (75-110); POTASSIUM 3.6 mmol/L (3.6-5.0); SODIUM 142.9 mmol/L (137-145); TOTAL PROTEIN 7.1 g/dL (6.3-8.2)
--- NOTE | 2019-01-06 12:29 | RADIOLOGY REPORT (SQ) ---
EXAM DESCRIPTION: CHEST 2 VIEWS COMPLETED DATE/TIME: 01/06/2019 12:10 pm REASON FOR STUDY: cough congestion wheezing COMPARISON: 01/01/2019 EXAM PARAMETERS: NUMBER OF VIEWS: two views TECHNIQUE: Digital Frontal and Lateral radiographic views of the chest acquired. RADIATION DOSE: NA LIMITATIONS: none FINDINGS: LUNGS AND PLEURA: No opacities, masses or pneumothorax. No pleural effusion. MEDIASTINUM AND HILAR STRUCTURES: No masses or contour abnormalities. HEART AND VASCULAR STRUCTURES: Heart normal size. No evidence for failure. BONES: No acute findings. HARDWARE: None in the chest. OTHER: No other significant finding. IMPRESSION: 1. No significant interval changes since the prior examination dated 01/01/2019. No acut e findings. TECHNICAL DOCUMENTATION: JOB ID: [id number] [employer]- All Rights Reserved Reading location - IP/workstation name: [email or web address]
[2019-01-06] MEDS ORDERED: KETOROLAC TROMETHAMINE 60 MG/2 ML SDV IM ONE (12:43)
[2019-01-06] MEDS ORDERED: ALBUTEROL SULFATE 0.083% NEB 2.5 MG/3 ML AMPUL NEB ONE (12:48)
--- NOTE | 2019-01-06 12:51 | ER Document Report ---
HPI - HPI Time Seen by Provider: 01/06/19 11:08 Pain Level: 5 Notes: Patient is a 33-year-old female with a history of asthma and tobacco abuse who presents emergency department complaining of continued semi-productive cough, nasal congestion/discharge, sinus headaches, and exacerbation of her chronic pain to her back and hips. Patient states that she is continuing to cough despite being on steroids as well as doxycycline which she still has left. She only reports SOB when she is coughing and not at rest. Patient states that she has not been smoking throughout this time and plans on not restarting. Patient states that she is starting to get discomfort on both sides when she coughs. Toradol has helped in the past with her pains. She is otherwise eating and drinking without difficulty. She is urinating normally. Denies any headache, fever, neck pain, sore throat, palpitations, syncope, shortness of breath, dyspnea, abdominal pain, nausea/vomiting/diarrhea, urinary retention, dysuria, hematuria, or rash. - ROS Systems Reviewed and Negative: Yes All other systems reviewed and negative - REPRODUCTIVE Reproductive: DENIES: : - DERM Skin Color: Normal Past Medical History - General Information source: Patient - Social History Smoking Status: Former Smoker Chew tobacco use (# tins/day): No Frequency of alcohol use: None Drug Abuse: None Family History: Reviewed & Not Pertinent Patient has suicidal ideation: No Patient has homicidal ideation: No Pulmonary Medical History: Reports: Hx Asthma - as a child Neurological Medical History: Reports: Hx Migraine Renal/ Medical History: Denies: Hx Peritoneal Dialysis Musculoskeletal Medical History: 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 Denies: Hx Pacemaker - Immunizations Hx Diphtheria, Pertussis, Tetanus Vaccination: Yes Vertical Provider Document - CONSTITUTIONAL Agree With Documented VS: Yes Notes: PHYSICAL EXAMINATION: GENERAL: Well-appearing, well-nourished and in no acute distress. A&Ox4. Answers questions appropriately. Moves comfortably w/o notable distress HEAD: Atraumatic, normocephalic. EYES: Pupils equal round and reactive to light, extraocular movements intact, sclera anicteric, conjunctiva are normal. ENT: EAC clear b/l. TM's intact b/l without erythema, fluid, or perforation. Nares patent and with clear discharge. oropharynx no erythema without exudates. No tonsilar hypertrophy without erythema or exudate. No palatine shift. Uvula midline. No tongue protrusion. No drooling, hoarseness, or airway compromise. Moist mucous membranes. No sinus tenderness. NECK: Normal range of motion, supple without lymphadenopathy. No rigidity/meni ngismus. LUNGS: Scant wheeze b/l primarily with expirations. No retractions HEART: Regular rate and rhythm without murmurs, rubs, gallops. ABDOMEN: Soft, nontender, nondistended abdomen. No guarding, no rebound. Normal bowel sounds present. No CVA tenderness bilaterally. NEUROLOGICAL: Normal speech, normal gait. PSYCH: Normal mood, normal affect. SKIN: Warm, Dry, normal turgor, no rashes or lesions noted. - INFECTION CONTROL TRAVEL OUTSIDE OF THE [place] IN LAST 30 DAYS: No Course - Re-evaluation Re-evalutation: 01/06/19 12:49 Patient is an afebrile, well-hydrated, 33-year-old female who presents to the emergency department with an acute URI, suspect viral. Vitals are acceptable without significant tachycardia, tachypnea, or hypoxia. PE is otherwise unremarkable. Patient is not toxic appearing and is tolerating p.o. without difficulty. Patient was given breathing treatment x2 as well as a Toradol injection. Patient still has doxycycline left which she is continuing to take. Labs and chest x-ray unremarkable. No further labs or imaging warranted at this time. Patient is otherwise PERC/Wells negative. Low suspicion for any ACS, PE, pneumothorax, pericarditis, dissection, respiratory compromise, severe dehydration, sepsis, acute intracranial pathology, or other systemic emergent condition at this time. Patient is aware that her condition can change from initial presentation and she needs to monitor symptoms closely and seek medical attention for any acute changes. Recommend conservative measures for symptoms. Recheck with your PCM in 3-5 days. Return to the ED with any worsening/concerning symptoms otherwise as reviewed in discharge. Patient is in agreement. - Vital Signs Vital signs: Temp Pulse Resp BP Pulse Ox 98.0 F 93 16 151/80 H 96 01/06/19 10:50 01/06/19 10:50 01/06/19 10:50 01/06/19 10:50 01/06/19 10:50 - Laboratory Result Diagrams: 01/06/19 11:16 01/06/19 11:16 Laboratory results interpreted by me: 01/06/19 01/06/19 11:16 11:16 Seg Neutrophils % 82.8 H Urine Blood SMALL H Urine Urobilinogen 2.0 H Discharge - Discharge Clinical Impression: Acute URI Condition: Stable Disposition: HOME, SELF-CARE Instructions: Upper Respiratory Illness ([facility]) Additional Instructions: Maintain adequate fluid intake Take meds as directed tylenol/ibuprofen as needed over the counter cold medication as needed for symptoms Humidified air may help Wash your hands regularly Wear a mask when coughing F/u: with your PCM in 3-5 days for a recheck Return to the ED with any fever, worsening pain, chest pain, palpitations, syncope, worsening OROZCO, neck pain/stiffness, shortness of breath, wheezing, drooling, trouble swallowing/breathing, abdominal pain, n/v/d, rash, or worsening/concerning symptoms otherwise. Prescriptions: Albuterol Sulfate [Proair HFA Inhalation Aerosol 8.5 gm MDI] 2 puff IH Q4H PRN #1 mdi PRN Reason: Codeine Phosphate/Guaifenesin [Cheratussin Ac Syrup] 10 ml PO QID #100 ml Forms: Elevated Blood Pressure Referrals: SAM NGUYEN MD [Primary Care Provider] - Follow up in 3-5 days
[2019-01-06] MEDS ORDERED: ONDANSETRON ODT 4 MG TAB (6 TAB/ER DISP) PO PRN (13:17)
[2019-01-06 13:22] VITALS: BP 133/80
== END 2019-01-06 13:25 | disposition home or self-care (01) ==
LOC: ER 10:35
DX: J06.9 Acute upper respiratory infection, unspecified (principal); R05 Cough; R51 Headache; M54.9 Dorsalgia, unspecified; M25.551 Pain in right hip; M25.552 Pain in left hip; G89.29 Other chronic pain; Z87.891 Personal history of nicotine dependence
CPT/HCPCS: 94640 ×2; 99283; 96372; 36415; 85025; 80053; 81001; 71046; J1885; J7620

== ENCOUNTER → 2019-01-09 | Outpatient (CLI) | payer OTHER ==
--- NOTE | 2019-01-09 11:17 | RADIOLOGY REPORT (SQ) ---
EXAM DESCRIPTION: MRI LUMBAR SPINE WITHOUT COMPLETED DATE/TIME: 01/09/2019 10:55 am REASON FOR STUDY: RADICULOPATHY, LUMBAR REGION M54.16 RADICULOPATHY, LUMBAR REGION COMPARISON: MRI lumbar spine 10/19/2017, 10/15/2017 CT lumbar spine 10/02/2017 TECHNIQUE: Sagittal and Axial imaging includes T1, T2, STIR and gradient echo sequences. Coronal T2/ HASTE imaging. LIMITATIONS: None. FINDINGS: VISUALIZED UPPER ABDOMEN: Limited evaluation. No acute or suspicious findings suggested. SEGMENTATION: No transitional anatomy. The lowest well-developed disc space is labeled L5-S1. ALIGNMENT: Anatomic. VERTEBRAE: Intact. BONE MARROW: Normal. No marrow replacement or reactive changes. DISC SIGNAL: Decreased T2 weighted intervertebral disc signal at L4-5 and L5-S1 POSTERIOR ELEMENTS: Post bilateral laminectomy at L5 HARDWARE: None in the spine. CORD AND CONUS: Normal in size and signal intensity. Conus at the L1-2 level. SOFT TISSUES: No aortic aneurysm seen. No bulky retroperitoneal adenopathy or mass. No paraspinal mas s or fluid. T11-12: Unremarkable T12-L1: Unremarkable L1-L2: No significant spinal stenosis or exit foraminal stenosis. L2-L3: No significant spinal stenosis or exit foraminal stenosis. L3-L4: No significant spinal stenosis or exit foraminal stenosis. Mild facet and ligament hypertroph y. L4-L5: No significant spinal stenosis or exit foraminal stenosis. Mild facet and ligament hypertroph y L5-S1: No significant spinal stenosis or exit foraminal stenosis. Prior bilateral laminectomy. Thec al sac is widely decompressed. There is minimal right paracentral disc bulge without definite imping ement on the right proximal S1 nerve root SACRUM: Visualized upper sacrum intact. OTHER: No other significant findings. IMPRESSION: Postsurgical changes at L5-S1. No significant central or foraminal encroachment TECHNICAL DOCUMENTATION: JOB ID: [id number]- All Rights Reserved Reading location - IP/workstation name: [email or web address]
== END ==
LOC: RAD 10:11
DX: M54.16 Radiculopathy, lumbar region (principal)
CPT/HCPCS: 72148

== ENCOUNTER 2019-01-24 08:59 | Emergency (ER) | payer OTHER ==
[2019-01-24] MEDS ORDERED: OXYCODONE-ACETAMINOPHEN 5-325 MG TABLET PO ONE (10:46)
[2019-01-24] MEDS ORDERED: PREDNISONE 20 MG TABLET PO ONE (10:46)
--- NOTE | 2019-01-24 10:47 | ER Document Report ---
HPI - HPI Patient complains to provider of: Right shoulder pain Time Seen by Provider: 01/24/19 10:15 Onset: Other - 5 days Onset/Duration: Persistent Quality of pain: Achy Pain Level: 5 Context: Patient presents complaining of right shoulder pain for the past 5 days. Patient denies any previous history of shoulder pain or injury. Patient states she has had some nausea due to the pain. Patient states the pain radiates from the right upper back, shoulder area down her arm to her hand. Associated Symptoms: Other - Right upper extremity pain Exacerbated by: Movement Relieved by: Denies Similar symptoms previously: No Recently seen / treated by doctor: No - ROS ROS below otherwise negative: Yes Systems Reviewed and Negative: Yes All other systems reviewed and negative - CONSTITUTIONAL Constitutional: DENIES: Fever - NEURO Neurology: DENIES: Headache, Weakness - RESPIRATORY Respiratory: DENIES: Trouble Breathing, Coughing - GASTROINTESTINAL Gastrointestinal: REPORTS: Nausea. DENIES: Abdominal Pain, Patient vomiting - REPRODUCTIVE Reproductive: DENIES: : - MUSCULOSKELETAL Musculoskeletal: REPORTS: Extremity pain, Back Pain - DERM Skin Color: Normal Skin Problems: None Past Medical History - General Information source: Patient - Social History Smoking Status: Never Smoker Frequency of alcohol use: None Drug Abuse: None Occupation: None Family History: Reviewed & Not Pertinent Pulmonary Medical History: Reports: Hx Asthma - as a child Neurological Medical History: Reports: Hx Migraine Renal/ Medical History: Denies: Hx Peritoneal Dialysis Musculoskeletal Medical History: Reports Hx Arthritis - LOW BACK, Reports Hx Musculoskeletal Deformity, Reports Hx Musculoskeletal Trauma Psychiatric Medical History: Reports: Hx Anxiety, Hx Bipolar Disorder, Hx Depression Past Surgical History: Reports: Hx Oral Surgery, Hx Orthopedic Surgery - lower back, Hx Tubal Ligation - Immunizations Hx Diphtheria, Pertussis, Tetanus Vaccination: Yes Vertical Provider Document - CONSTITUTIONAL Agree With Documented VS: Yes Exam Limitations: No Limitations General Appearance: WD/WN, No Apparent Distress - INFECTION CONTROL TRAVEL OUTSIDE OF THE [place] IN LAST 30 DAYS: No - HEENT HEENT: Atraumatic, Normocephalic - NECK Neck: Normal Inspection, Supple. negative: Lymphadenopathy-Left, Lymphadenopathy-Right - RESPIRATORY Respiratory: Breath Sounds Normal, No Respiratory Distress - CARDIOVASCULAR Cardiovascular: Regular Rate, Regular Rhythm Pulses: Normal: Radial - BACK Back: Abnormal Inspection - With cervical midline tenderness and right cervical paraspinal tenderness, patient with right trapezius muscle tenderness with palpation - MUSCULOSKELETAL/EXTREMETIES Musculoskeletal/Extremeties: MAEW, FROM, Tender - Patient with tenderness to right upper extremity that is worse with movement of right arm. Patient with full passive range of motion, normal strength and muscle tone to right upper extremity, No Edema - NEURO Level of Consciousness: Awake, Alert, Appropriate Motor/Sensory: No Motor Deficit, No Sensory Deficit - DERM Integumentary: Warm, Dry, No Rash Course - Vital Signs Vital signs: Temp Pulse Resp BP Pulse Ox 98.4 F 94 16 115/76 96 01/24/19 09:09 01/24/19 09:09 01/24/19 09:09 01/24/19 09:09 01/24/19 09:09 Discharge - Discharge Clinical Impression: Cervical radicular pain Condition: Stable Disposition: HOME, SELF-CARE Instructions: Muscle Relaxers ([facility]), Radiculopathy ([facility]), Steroid Medication Additional Instructions: Return immediately for any new or worsening symptoms Followup with your primary care provider, call tomorrow to make a followup appointment Follow-up with orthopedics for any persistent pain or problems Prescriptions: Methocarbamol [Robaxin 500 Mg Tablet] 500 mg PO QID PRN #30 tablet PRN Reason: Prednisone [Deltasone 10 mg Tablet] 10 mg PO ASDIR PRN #21 tablet PRN Reason: Referrals: SAM NGUYEN MD [Primary Care Provider] - Follow up as needed
[2019-01-24 11:03] VITALS: BP 114/76
== END 2019-01-24 11:17 | disposition home or self-care (01) ==
LOC: ER 08:59
DX: M54.12 Radiculopathy, cervical region (principal); R11.0 Nausea; M25.511 Pain in right shoulder
CPT/HCPCS: 99283; J7512

== ENCOUNTER 2019-03-05 09:47 | Emergency (ER) | payer OTHER ==
[2019-03-05] MEDS ORDERED: HYDROMORPHONE HCL INJ/PF 2 MG/ML AMPULE IM ONE (10:19)
[2019-03-05] MEDS ORDERED: LIDOCAINE 5% (700 MG) TRANSDERMAL ADH..PATCH TP ONE (10:52)
--- NOTE | 2019-03-05 10:52 | ER Document Report ---
HPI - HPI Patient complains to provider of: Back pain Time Seen by Provider: 03/05/19 10:07 Onset: This morning Onset/Duration: Gradual Quality of pain: Achy Pain Level: 5 Context: Patient states she woke up today with spinal pain throughout her entire spine. Patient denies any injury. Patient denies any fever. Patient denies any radiculopathy or paresthesia. Patient denies any history of IV drug use or chronic alcoholism. Patient denies any recent surgeries or injections in her back. Patient states she does have chronic low back pain but she is not used to having neck and upper back pain as well. Associated Symptoms: Other - Neck and back pain. denies: Fever, Headache Exacerbated by: Movement Relieved by: Denies Similar symptoms previously: No Recently seen / treated by doctor: No - ROS ROS below otherwise negative: Yes Systems Reviewed and Negative: Yes All other systems reviewed and negative - CONSTITUTIONAL Constitutional: DENIES: Fever, Chills - EENT EENT: DENIES: Sore Throat - NEURO Neurology: DENIES: Headache, Weakness - GASTROINTESTINAL Gastrointestinal: DENIES: Nausea, Patient vomiting - URINARY Urinary: DENIES: Dysuria, Urgency - REPRODUCTIVE Reproductive: DENIES: : - MUSCULOSKELETAL Musculoskeletal: REPORTS: Back Pain, Neck Pain. 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 Lives with: Family Family History: Reviewed & Not Pertinent Pulmonary Medical History: Reports: Hx Asthma - as a child Neurological Medical History: Reports: Hx Migraine Renal/ Medical History: Denies: Hx Peritoneal Dialysis Musculoskeletal Medical History: Reports Hx Arthritis - LOW BACK, Reports Hx M usculoskeletal Deformity, Reports Hx Musculoskeletal Trauma Psychiatric Medical History: Reports: Hx Anxiety, Hx Bipolar Disorder, Hx Depression Past Surgical History: Reports: Hx Oral Surgery, Hx Orthopedic Surgery - lower back, Hx Tubal Ligation - Immunizations Hx Diphtheria, Pertussis, Tetanus Vaccination: Yes Vertical Provider Document - CONSTITUTIONAL Agree With Documented VS: Yes Exam Limitations: No Limitations General Appearance: WD/WN, No Apparent Distress Notes: PHYSICAL EXAMINATION: GENERAL: Well-appearing, well-nourished and in no acute distress. HEAD: Atraumatic, normocephalic. EYES: sclera clear, anicteric, conjunctiva are normal. ENT: nares patent, Moist mucous membranes. NECK: Normal range of motion, supple no lymphadenopathy LUNGS: respirations unlabored HEART: Regular rate and rhythm without murmurs EXTREMITIES: Normal range of motion, no pitting or edema. No cyanosis. Gait normal, pt ambulates without difficulty BACK: Cervical thoracic and lumbar midline tenderness, scar to lower lumbar area, no paraspinal muscle tenderness no deformities or step-offs. No CVA tenderness. NEUROLOGICAL: Cranial nerves grossly intact. Normal speech, normal gait. No saddle anesthesia. 2+ bilateral patellar and Achilles reflexes, negative straight leg test bilaterally. Normal strength and muscle tone to bilateral upper and lower extremities PSYCH: Normal mood, normal affect. SKIN: Warm, Dry, normal turgor, no rashes or lesions noted. - INFECTION CONTROL TRAVEL OUTSIDE OF THE [place] IN LAST 30 DAYS: No Course - Re-evaluation Re-evalutation: 03/05/19 10:48 Patient presents with spinal tenderness throughout entire cervical thoracic and lumbar spine. No history of trauma, no recent spinal injections or surgical procedures. Patient without any fever or recent illness. No chronic alcoholism, no IV drug use history. No headache pain at this time. Patient awake alert oriented x4. No concern for meningitis, spinal epidural abscess, or mass at this time. Patient did have a recent outpatient lumbar MRI 2 months ago which showed postsurgical changes related to her previous laminectomy, with no acute findings. Consulted with Dr. Mahogany Renteria regarding patient's presentation. The patient presents with low back pain without signs of spinal cord compression, cauda equina syndrome, infection, aneurysm, or other serious etiology. The patient is neurologically intact. Given the extremely risk of these diagnoses further testing and evaluation for these possibilities does not appear to be indicated at this time. Patient has been instructed to return if the symptoms worsen or change in any way. - Vital Signs Vital signs: Temp Pulse Resp BP Pulse Ox 97.9 F 73 20 133/93 H 98 03/05/19 10:03 03/05/19 10:03/05/19 10:03/05/19 10:03/05/19 10:03 - Diagnostic Test Radiology reviewed: Reports reviewed - Reviewed patient's outpatient MRI from January of this year Discharge - Discharge Clinical Impression: Neck pain Back pain Qualifiers: Back pain location: back pain in unspecified location Chronicity: unspecified Back pain laterality: midline Qualified Code(s): M54.89 - Other dorsalgia Condition: Stable Disposition: HOME, SELF-CARE Instructions: Ice Packs ([facility]), Low Back Pain ([facility]), Muscle Relaxers ([facility]) Additional Instructions: Return immediately for any new or worsening symptoms: Headache, fever, weakness, urinary retention or incontinence, or any new concerning symptoms Followup with your primary care provider, call tomorrow to make a followup appointment Follow-up with your spinal surgeon for recheck Prescriptions: Lidocaine [Lidoderm 5% (700 mg) Transdermal Patch] 1 patch TP DAILY PRN #10 adh..patch PRN Reason: Methocarbamol [Robaxin 500 Mg Tablet] 500 mg PO QID PRN #24 tablet PRN Reason: Forms: Smoking Cessation Education Referrals: AMINTA GABRIEL MD [NO LOCAL MD] - Follow up in 3-5 days [facility] [Provider Group] - Follow up tomorrow
[2019-03-05 11:10] VITALS: BP 131/86
== END 2019-03-05 11:34 | disposition home or self-care (01) ==
LOC: ER 09:47
DX: M54.2 Cervicalgia (principal); M54.9 Dorsalgia, unspecified; M54.5 Low back pain; G89.29 Other chronic pain; F17.200 Nicotine dependence, unspecified, uncomplicated; J45.909 Unspecified asthma, uncomplicated
CPT/HCPCS: 99283; 96372; J1170

== ENCOUNTER 2019-06-11 12:42 | Emergency (ER) | payer OTHER ==
[2019-06-11] MEDS ORDERED: KETOROLAC TROMETHAMINE INJ/PF 30 MG/1 ML SDV IV ONE (13:32)
[2019-06-11] MEDS ORDERED: METOCLOPRAMIDE HCL INJ/PF 10 MG/2 ML SDV IV ONE (13:32)
[2019-06-11] MEDS ORDERED: NORMAL SALINE 1000 ML 1,000 ML IV ONE (13:33)
--- NOTE | 2019-06-11 13:34 | ER Document Report ---
ED Medical Screen (RME) - General Chief Complaint: Headache Stated Complaint: MIGRAINE/NAUSEA Time Seen by Provider: 06/11/19 13:29 Notes: Patient is a 33-year-old female with a history of migraines who presents to the emergency department with a headache. Headache is primarily on the right side of her head. It started about 3 days ago she has been taking Excedrin and Goody powders with little relief. Pain is constant. Patient just got off her menstrual cycle. Exam: Normal strength in upper and lower extremities. I have greeted and performed a rapid initial assessment of this patient. A comprehensive ED assessment and evaluation of the patient, analysis of test results and completion of medical decision making process will be conducted by an additional ED providers. TRAVEL OUTSIDE OF THE [place] IN LAST 30 DAYS: No - Related Data Allergies/Adverse Reactions: cyclobenzaprine HCl [From Flexeril] Allergy (Verified 03/05/19 09:49) fluoxetine HCl [From Prozac] Allergy (Verified 03/05/19 09:49) ibuprofen [Ibuprofen] Allergy (Verified 03/05/19 09:49) prochlorperazine edisylate [From Compazine] Allergy (Verified 03/05/19 09:49) prochlorperazine maleate [From Compazine] Allergy (Verified 03/05/19 09:49) promethazine HCl [From Phenergan] Allergy (Verified 03/05/19 09:49) Past Medical History - Social History Family history: None Pulmonary Medical History: Reports: Hx Asthma - as a child Neurological Medical History: Reports: Hx Migraine Renal/ Medical History: Denies: Hx Peritoneal Dialysis Musculoskeltal Medical History: 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 Denies: Hx Pacemaker - Immunizations Hx Diphtheria, Pertussis, Tetanus Vaccination: Yes Physical Exam - Vital signs Vitals: Temp Pulse Resp BP Pulse Ox 98.3 F 76 18 144/105 H 100 06/11/19 12:49 06/11/19 12:49 06/11/19 12:49 06/11/19 12:49 06/11/19 12:49 Course - Vital Signs Vital signs: Temp Pulse Resp BP Pulse Ox 98.3 F 76 18 144/105 H 100 06/11/19 12:49 06/11/19 12:49 06/11/19 12:49 06/11/19 12:49 06/11/19 12:49
[2019-06-11 14:23] LABS: ABSOLUTE EOSINOPHILS # (AUTO) 0.3 10^3/uL (0.0-0.6); ABSOLUTE LYMPHOCYTES (AUTO) 2.8 10^3/uL (0.5-4.7); ABSOLUTE MONOCYTES (AUTO) 0.5 10^3/uL (0.1-1.4); ABSOLUTE NEUT (AUTO) 3.5 10^3/uL (1.7-8.2); BASOPHILS % (AUTO) 0.7 % (0-2); EOSINOPHILS % (AUTO) 4.5 % (0-6); HEMATOCRIT 38.4 % (36.0-47.0); LYMPHOCYTES % (AUTO) 39.7 % (13-45); MEAN CORPUSCULAR HEMOGLOBIN 31.5 pg (27.0-33.4); MEAN CORPUSCULAR HGB CONC 33.9 g/dL (32.0-36.0); MEAN CORPUSCULAR VOLUME 93 fl (80-97); MONOCYTES % (AUTO) 6.5 % (3-13); PLATELET COUNT 277 10^3/uL (150-450); RED BLOOD COUNT 4.13 10^6/uL (3.72-5.28); RED CELL DISTRIBUTION WIDTH 13.1 % (11.5-14.0); SEGMENTED NEUTROPHILS % (AUTO) 48.6 % (42-78); TOTAL CELLS COUNTED % (AUTO) 100 %; WHITE BLOOD COUNT 7.2 10^3/uL (4.0-10.5)
[2019-06-11 14:44] LABS: ALBUMIN 3.9 g/dL (3.5-5.0); ALKALINE PHOSPHATASE 55 U/L (38-126); ANION GAP 6 (5-19); ASPARTATE AMINO TRANSFERASE 16 U/L (14-36); BILIRUBIN,DIRECT 0.1 mg/dL (0.0-0.4); BILIRUBIN,TOTAL 0.4 mg/dL (0.2-1.3); BLOOD UREA NITROGEN 7 mg/dL (7-20); CALCIUM 9.3 mg/dL (8.4-10.2); CARBON DIOXIDE 29 mmol/L (22-30); CHLORIDE 104 mmol/L (98-107); GLUCOSE 98 mg/dL (75-110); POTASSIUM 4.1 mmol/L (3.6-5.0)
--- NOTE | 2019-06-11 14:58 | ER Document Report ---
HPI - HPI Patient complains to provider of: Headache Time Seen by Provider: 06/11/19 13:29 Onset: Other Onset/Duration: Persistent Quality of pain: Achy Severity: Severe Pain Level: 4 Context: This 33-year-old female presents emergency department with complaints of migraine headache. Reports that on the right side. Reports she is sensitive to light but not sensitive to sound. Reports she is usually sensitive to sound. She rated the pain is 4 out of 5 upon arrival but now reports its completely gone. Patient was treated with Toradol Reglan and IV fluids. She reports she did feel nauseated but not now. Reports she feels great. Associated Symptoms: Nausea Exacerbated by: Denies Relieved by: Denies Similar symptoms previously: Yes Recently seen / treated by doctor: No - CONSTITUTIONAL Constitutional: DENIES: Fever, Chills - NEURO Neurology: REPORTS: Headache - REPRODUCTIVE Reproductive: DENIES: : Past Medical History - General Information source: Patient Last Menstrual Period: Just finished - Social History Smoking Status: Current Every Day Smoker Cigarette use (# per day): Yes Frequency of alcohol use: None Drug Abuse: None Lives with: Family Family History: Reviewed & Not Pertinent Patient has suicidal ideation: No Patient has homicidal ideation: No Pulmonary Medical History: Reports: Hx Asthma - as a child Neurological Medical History: Reports: Hx Migraine Renal/ Medical History: Denies: Hx Peritoneal Dialysis Musculoskeletal Medical History: 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 Denies: Hx Pacemaker - Immunizations Hx Diphtheria, Pertussis, Tetanus Vaccination: Yes Vertical Provider Document - CONSTITUTIONAL Agree With Documented VS: Yes Exam Limitations: No Limitations General Appearance: WD/WN, No Apparent Distress - nonToxic looking - INFECTION CONTROL TRAVEL OUTSIDE OF THE [place] IN LAST 30 DAYS: No - HEENT HEENT: Atraumatic, Normocephalic, PERRLA. negative: Conjuctival Injection - NECK Neck: Normal Inspection, Supple. negative: Lymphadenopathy-Right - RESPIRATORY Respiratory: Breath Sounds Normal, No Respiratory Distress - CARDIOVASCULAR Cardiovascular: Regular Rate - GI/ABDOMEN Gastrointestinal: Abdomen Soft, Abdomen Non-Tender - MUSCULOSKELETAL/EXTREMETIES Musculoskeletal/Extremeties: MAEW, FROM, Non-Tender - NEURO Level of Consciousness: Awake, Alert, Appropriate Motor/Sensory: No Motor Deficit - DERM Integumentary: Warm, Dry Course - Re-evaluation Re-evalutation: 06/11/19 15:31 This 33-year-old female with history of migraines presents today with complaints of headache on the right side. Denies trauma reports some nausea. Reports usual migraine except she is not sensitive to sound like she normally is. Was treated with IV fluids Toradol and Reglan. She reports she feels 100% red better and ready to go home. Dictation of this chart was performed using voice recognition software; therefore, there may be some unintended grammatical errors. 06/11/19 14:09 06/11/19 14:09 MCV 93 fl (80-97) 06/11/19 14:09 MCH 31.5 pg (27.0-33.4) 06/11/19 14:09 MCHC 33.9 g/dL (32.0-36.0) 06/11/19 14:09 RDW 13.1 % (11.5-14.0) 06/11/19 14:09 Seg Neutrophils % 48.6 % (42-78) 06/11/19 14:09 Chloride 104 mmol/L (98-107) 06/11/19 14:09 Carbon Dioxide 29 mmol/L (22-30) 06/11/19 14:09 Anion Gap 6 (5-19) 06/11/19 14:09 Est GFR ( Amer) > 60 (>60) 06/11/19 14:09 Glucose 98 mg/dL (75-110) 06/11/19 14:09 Calcium 9.3 mg/dL (8.4-10.2) 06/11/19 14:09 Total Bilirubin 0.4 mg/dL (0.2-1.3) 06/11/19 14:09 AST 16 U/L (14-36) 06/11/19 14:09 Alkaline Phosphatase 55 U/L (38-126) 06/11/19 14:09 Total Protein 7.0 g/dL (6.3-8.2) 06/11/19 14:09 Albumin 3.9 g/dL (3.5-5.0) 06/11/19 14:09 - Vital Signs Vital signs: Temp Pulse Resp BP Pulse Ox 98.3 F 76 18 144/105 H 100 06/11/19 12:49 06/11/19 12:49 06/11/19 12:49 06/11/19 12:49 06/11/19 12:49 - Laboratory Result Diagrams: 06/11/19 14:09 06/11/19 14:09 Discharge - Discharge Clinical Impression: Headache Condition: Stable Disposition: HOME, SELF-CARE Instructions: Use of Diphenhydramine, Headache ([facility]), Intravenous (IV) Fluids ([facility]), Reglan ([facility]), Toradol Injection ([facility]) Additional Instructions: *You have been evaluated for headache *Take benadryl, motrin as indicated, push fluids *Follow up with a primary care provider within one week *Return to ED for worsening condition, changes, needs *Return to ED if not better in 24 hours Forms: Elevated Blood Pressure, Return to Work
[2019-06-11 15:43] VITALS: BP 138/91
== END 2019-06-11 16:13 | disposition home or self-care (01) ==
LOC: ER 12:42
DX: R51 Headache (principal); R11.0 Nausea; F17.210 Nicotine dependence, cigarettes, uncomplicated; Z98.51 Tubal ligation status
CPT/HCPCS: 99284; 96361; 96374; 96375; 36415; 85025; 80053; J1885; J2765; J7030

== ENCOUNTER 2019-06-13 14:00 | Emergency (ER) | payer OTHER ==
[2019-06-13] MEDS ORDERED: METOCLOPRAMIDE HCL INJ/PF 10 MG/2 ML SDV IV ONE (14:10)
[2019-06-13] MEDS ORDERED: CLONIDINE HCL 0.1 MG TABLET PO ONE (14:10)
--- NOTE | 2019-06-13 14:15 | ER Document Report ---
ED Medical Screen (RME) - General Chief Complaint: Headache Stated Complaint: MIGRAINE TRAVEL OUTSIDE OF THE [place] IN LAST 30 DAYS: No - HPI Notes: 06/13/19 14:12 Patient is a 33-year-old female with history of migraines and mental health disorders who presents complaining of severe headache that started 20 minutes ago suddenly. Patient states that this is the worst headache that she is ever felt. Patient states that the headache is a global headache and associated with nausea and light sensitivity. No other changes in vision. She was here couple days ago for a typical migraine which is relieved with medicine. Patient otherwise has not had any issues with blood pressure in the past which was found to be significantly elevated upon arrival. Denies fever, neck pain, URI, CP, SOB, Abd pain, dysuria, back pain, or rash. I have treated and performed a rapid initial assessment of this patient. A comprehensive ED assessment and evaluation of the patient, analysis of test results and completion of medical decision making process will be conducted by additional ED providers. PHYSICAL EXAMINATION: GENERAL: no acute respiratory distress. A&Ox4. Answers questions appropriately. NEUROLOGICAL: Normal speech, normal gait. Cranial nerves grossly intact. NIH 0. GCS 15. PSYCH: Normal mood, normal affect. - Related Data Allergies/Adverse Reactions: cyclobenzaprine HCl [From Flexeril] Allergy (Verified 06/13/19 14:11) fluoxetine HCl [From Prozac] Allergy (Verified 06/13/19 14:11) ibuprofen [Ibuprofen] Allergy (Verified 06/13/19 14:11) prochlorperazine edisylate [From Compazine] Allergy (Verified 06/13/19 14:11) prochlorperazine maleate [From Compazine] Allergy (Verified 06/13/19 14:11) promethazine HCl [From Phenergan] Allergy (Verified 06/13/19 14:11) Past Medical History - Social History Chew tobacco use (# tins/day): No Frequency of alcohol use: None Drug Abuse: None Family history: None Pulmonary Medical History: Reports: Hx Asthma - as a child Neurological Medical History: Reports: Hx Migraine Renal/ Medical History: Denies: Hx Peritoneal Dialysis Musculoskeltal Medical History: 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 Denies: Hx Pacemaker - Immunizations Hx Diphtheria, Pertussis, Tetanus Vaccination: Yes Physical Exam - Vital signs Vitals: Temp Pulse Resp BP Pulse Ox 98.2 F 88 22 H 192/110 H 99 06/13/19 14:01 06/13/19 14:01 06/13/19 14:01 06/13/19 14:01 06/13/19 14:01 Course - Vital Signs Vital signs: Temp Pulse Resp BP Pulse Ox 98.2 F 88 22 H 210/118 H 99 06/13/19 14:01 06/13/19 14:01 06/13/19 14:01 06/13/19 14:12 06/13/19 14:01
--- NOTE | 2019-06-13 14:31 | RADIOLOGY REPORT (SQ) ---
EXAM DESCRIPTION: CT HEAD WITHOUT COMPLETED DATE/TIME: 06/13/2019 2:18 pm REASON FOR STUDY: severe OROZCO COMPARISON: 01/28/2017 TECHNIQUE: Axial images acquired through the brain without intravenous contrast. Images reviewed wi th bone, brain and subdural windows. Additional sagittal and coronal reconstructions were generated. Images stored on PACS. All CT scanners at this facility use dose modulation, iterative reconstruction, and/or weight based d osing when appropriate to reduce radiation dose to as low as reasonably achievable (ALARA). [facility]: Dose Right [facility]: CareDose [facility]: Dose Right [facility]: Teradose 4D [facility]: Vivocha RADIATION DOSE: CT Rad equipment meets quality standard of care and radiation dose reduction techniq ues were employed. CTDIvol: 53.2 mGy. DLP: 911 mGy-cm. mGy. LIMITATIONS: None. FINDINGS: VENTRICLES: Normal size and contour. CEREBRUM: No masses. No hemorrhage. No midline shift. No evidence for acute infarction. Normal gra y/white matter differentiation. No areas of low density in the white matter. CEREBELLUM: No masses. No hemorrhage. No alteration of density. No evidence for acute infarction. EXTRAAXIAL SPACES: No fluid collections. Stable pineal calcifications and 6 mm cyst. ORBITS AND GLOBE: No intra- or extraconal masses. Normal contour of globe without masses. CALVARIUM: No fracture. PARANASAL SINUSES: Mild ethmoid air cell mucosal thickening. Polypoid mucosal thickening within the left maxillary sinus. SOFT TISSUES: No mass or hematoma. OTHER: No other significant finding. IMPRESSION: No evidence of acute intracranial process. Mucosal thickening within the ethmoid air cells. EVIDENCE OF ACUTE STROKE: NO. COMMENT: Quality ID # [id number]: Final reports with documentation of one or more dose reduction techniques (e.g., Automated exposure control, adjustment of the mA and/or kV according to patient size, use of iterative reconstruction technique) TECHNICAL DOCUMENTATION: JOB ID: [id number] [employer]- All Rights Reserved Reading location - IP/workstation name: [email or web address]
--- NOTE | 2019-06-13 15:26 | ER Document Report ---
ED General - General Chief Complaint: Headache Stated Complaint: MIGRAINE Time Seen by Provider: 06/13/19 14:15 TRAVEL OUTSIDE OF THE [place] IN LAST 30 DAYS: No - HPI Notes: Patient is a 33-year-old female presents emergency department for evaluation of sudden onset headache. She states this started at approximately 2 PM. It was sudden in onset, global in nature. She has a history of migraines, but she states they are usually not this intense. They are also usually one-sided. She states the pain radiates down into her neck. She denies any fevers or chills. She said some nausea but no emesis. No sore throat, no rashes. No visual disturbances. Moving her arms and legs without difficulty. Pain is worsened by bright light, nothing seems to make it better. - Related Data Allergies/Adverse Reactions: cyclobenzaprine HCl [From Flexeril] Allergy (Verified 06/13/19 14:11) fluoxetine HCl [From Prozac] Allergy (Verified 06/13/19 14:11) ibuprofen [Ibuprofen] Allergy (Verified 06/13/19 14:11) prochlorperazine edisylate [From Compazine] Allergy (Verified 06/13/19 14:11) prochlorperazine maleate [From Compazine] Allergy (Verified 06/13/19 14:11) promethazine HCl [From Phenergan] Allergy (Verified 06/13/19 14:11) Home Medications: Goody powder as needed Past Medical History - General Information source: Patient - Social History Smoking Status: Current Every Day Smoker Chew tobacco use (# tins/day): No Frequency of alcohol use: None Drug Abuse: None Family History: Reviewed & Not Pertinent Patient has suicidal ideation: No Patient has homicidal ideation: No Pulmonary Medical History: Reports: Hx Asthma - as a child Neurological Medical History: Reports: Hx Migraine Renal/ Medical History: Denies: Hx Peritoneal Dialysis Musculoskeletal Medical History: 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 Denies: Hx Pacemaker - Immunizations Hx Diphtheria, Pertussis, Tetanus Vaccination: Yes Review of Systems - Review of Systems Constitutional: No symptoms reported EENT: No symptoms reported Cardiovascular: No symptoms reported Respiratory: No symptoms reported Gastrointestinal: See HPI Genitourinary: No symptoms reported Musculoskeletal: No symptoms reported Skin: No symptoms reported Neurological/Psychological: No symptoms reported Physical Exam - Vital signs Vitals: Temp Pulse Resp BP Pulse Ox 98.2 F 88 22 H 192/110 H 99 06/13/19 14:01 06/13/19 14:01 06/13/19 14:01 06/13/19 14:01 06/13/19 14:01 - Notes Notes: Vital signs reviewed, please refer to chart. Head is normocephalic, atraumatic. Pupils equal round, reactive to light. Neck is supple without meningismus. Heart is regular rate and rhythm. Lungs are clear to auscultation bilaterally. Abdomen is soft, nontender, normoactive bowel sounds throughout. Extremities without cyanosis, clubbing. Posterior calves are nontender. Peripheral pulses are equal. Skin is warm and dry. Patient is awake, alert, oriented x3. Cranial nerves II - XII are grossly intact without focal neurological deficits. Strength is plus 5 out of 5 bilateral upper and lower extremities. Sensation is intact. Reflexes symmetrical. Intact [id number], rapid alternating movements, [id number]. Course - Re-evaluation Re-evalutation: 06/13/19 15:26 Patient presents emergency department for evaluation of a headache. On my exam, the patient has no neurological deficits, no nuchal rigidity, and is resting comfortably, looks to me in the eye, in no acute distress. Given the sudden onset nature of her headache, CT scan was ordered. Given that this was within a close window of time, I am confident in stating that an intracranial hemorrhage is not the etiology of this patient's headache at this time. Awaiting blood work, blood pressure is already responded. We will continue to monitor. 06/13/19 17:28 Patient feeling moderately improved. She remained stable. Her blood work and imaging are entirely unremarkable. I suspect this is a migraine headache. We will send her home, she is to follow-up with primary care, return to the ED with worsening or new concerning symptoms of any sort. - Vital Signs Vital signs: Temp Pulse Resp BP Pulse Ox 98.2 F 88 15 163/92 H 96 06/13/19 14:01 06/13/19 14:01 06/13/19 17:01 06/13/19 17:01 06/13/19 17:01 - Laboratory Result Diagrams: 06/13/19 15:14 06/13/19 15:14 Laboratory results interpreted by me: 06/13/19 15:14 Urine Blood SMALL H Ur Leukocyte Esterase TRACE H - Diagnostic Test Radiology reviewed: Reports reviewed Radiology results interpreted by me: 06/13/19 17:[address] 06/13/19 14:09 IMPRESSION: No evidence of acute intracranial process. Mucosal thickening within the ethmoid air cells. EVIDENCE OF ACUTE STROKE: NO. Discharge - Discharge Clinical Impression: Headache Condition: Stable Disposition: HOME, SELF-CARE Instructions: Headache ([facility]) Additional Instructions: Rest, stay well-hydrated with small, frequent sips of fluids. Follow-up with your primary care provider. You should discuss perhaps prophylactic medications for your headaches. If you develop worsening or new concerning symptoms of any sort, return immediately to the emergency department for evaluation. Forms: Elevated Blood Pressure
[2019-06-13 15:41] LABS: ABSOLUTE EOSINOPHILS # (AUTO) 0.2 10^3/uL (0.0-0.6); ABSOLUTE LYMPHOCYTES (AUTO) 2.4 10^3/uL (0.5-4.7); ABSOLUTE MONOCYTES (AUTO) 0.5 10^3/uL (0.1-1.4); ABSOLUTE NEUT (AUTO) 5.3 10^3/uL (1.7-8.2); BASOPHILS % (AUTO) 0.5 % (0-2); EOSINOPHILS % (AUTO) 2.8 % (0-6); HEMATOCRIT 39.7 % (36.0-47.0); HEMOGLOBIN 13.3 g/dL (12.0-15.5); LYMPHOCYTES % (AUTO) 28.5 % (13-45); MEAN CORPUSCULAR HEMOGLOBIN 31.2 pg (27.0-33.4); MEAN CORPUSCULAR HGB CONC 33.6 g/dL (32.0-36.0); MEAN CORPUSCULAR VOLUME 93 fl (80-97); MONOCYTES % (AUTO) 5.8 % (3-13); PLATELET COUNT 292 10^3/uL (150-450); RED BLOOD COUNT 4.27 10^6/uL (3.72-5.28); SEGMENTED NEUTROPHILS % (AUTO) 62.4 % (42-78); TOTAL CELLS COUNTED % (AUTO) 100 %; WHITE BLOOD COUNT 8.4 10^3/uL (4.0-10.5)
[2019-06-13 15:58] LABS: ALBUMIN 4.1 g/dL (3.5-5.0); ALKALINE PHOSPHATASE 58 U/L (38-126); ANION GAP 9 (5-19); APPEARANCE,URINE SLIGHTLY-CLOUDY; ASPARTATE AMINO TRANSFERASE 17 U/L (14-36); BILIRUBIN,DIRECT 0.1 mg/dL (0.0-0.4); BILIRUBIN,TOTAL 0.7 mg/dL (0.2-1.3); BILIRUBIN,URINE NEGATIVE (NEGATIVE); BLOOD UREA NITROGEN 7 mg/dL (7-20); CALCIUM 9.8 mg/dL (8.4-10.2); CARBON DIOXIDE 26 mmol/L (22-30); CHLORIDE 103 mmol/L (98-107); COLOR,URINE STRAW; GLUCOSE 83 mg/dL (75-110); GLUCOSE, URINE NEGATIVE (NEGATIVE); KETONES,URINE NEGATIVE (NEGATIVE); LEUKOCYTE ESTERASE,URINE TRACE (NEGATIVE); NITRITE,URINE NEGATIVE (NEGATIVE); POTASSIUM 3.9 mmol/L (3.6-5.0); PROTEIN,URINE NEGATIVE (NEGATIVE); TOTAL PROTEIN 7.3 g/dL (6.3-8.2); URINE SPECIFIC GRAVITY 1.005; UROBILINOGEN,URINE NEGATIVE mg/dL (<2.0)
[2019-06-13 16:05] LABS: INTERNATIONAL RATION (INR) 1.07; PROTHROMBIN TIME 13.9 SEC (11.4-15.4)
[2019-06-13] MEDS ORDERED: DEXAMETHASONE SOD PHOS INJ 10 MG/1 ML VIAL IV ONE (17:09)
[2019-06-13 17:58] VITALS: BP 130/93
== END 2019-06-13 17:57 | disposition home or self-care (01) ==
LOC: ER 14:00
DX: R51 Headache (principal); F17.200 Nicotine dependence, unspecified, uncomplicated; Z98.51 Tubal ligation status; Z88.6 Allergy status to analgesic agent
CPT/HCPCS: 36415; 85025; 85610; 85730; 81025; 80053; 81001; 70450; J2765; J1100; 96374; 96375; 99284

== ENCOUNTER → 2019-07-01 | Outpatient (CLI) | payer OTHER ==
--- NOTE | 2019-07-02 09:31 | RADIOLOGY REPORT (SQ) ---
EXAM DESCRIPTION: MRI RT LOWER EXTREMITY WITHOUT COMPLETED DATE/TIME: 07/01/2019 8:45 pm REASON FOR STUDY: S86.892A INJ OTH MUSC/TEND AT LOWER LEG LEVEL, LEFT LEG, INIT S86.891A INJ OTH MU SC/TEND AT LOWER LEG LEVEL, RIGHT LEG, IN S86.892A INJ OTH MUSC/TEND AT LOWER LEG LEVEL, LEFT LEG, I NI COMPARISON: None. TECHNIQUE: Multiplanar imaging of the right calf to include fat and fluid sensitive sequences. LIMITATIONS: None. FINDINGS: BONE MARROW: No marrow edema or fracture or bone lesion. SOFT TISSUES: No evidence of mass or fluid collection. Normal signal in the muscles, no atrophy or e yolis. Visualized vessels look normal. No suggestion of ankle joint effusion. OTHER: No other significant finding. IMPRESSION: 1. Normal MRI of the right leg. TECHNICAL DOCUMENTATION: JOB ID: [id number] [employer]- All Rights Reserved Reading location - IP/workstation name: [email or web address]
--- NOTE | 2019-07-02 09:55 | RADIOLOGY REPORT (SQ) ---
EXAM DESCRIPTION: MRI LT LOWER EXTREMITY WITHOUT COMPLETED DATE/TIME: 07/01/2019 8:45 pm REASON FOR STUDY: S86.891A INJ OTH MUSC/TEND AT LOWER LEG LEVEL, RIGHT LEG, INIT S86.891A INJ OTH M USC/TEND AT LOWER LEG LEVEL, RIGHT LEG, IN S86.892A INJ OTH MUSC/TEND AT LOWER LEG LEVEL, LEFT LEG, INI COMPARISON: None. TECHNIQUE: Multiplanar imaging of the left calf to include fat and fluid sensitive sequences. LIMITATIONS: None. FINDINGS: BONE MARROW: No marrow edema or fracture or bone lesion. SOFT TISSUES: No evidence of mass or fluid collection. Normal signal in the muscles, no atrophy or e yolis. Visualized vessels look normal. No suggestion of knee effusion. OTHER: No other significant finding. IMPRESSION: Normal MRI of the left leg. TECHNICAL DOCUMENTATION: JOB ID: [id number] [employer]- All Rights Reserved Reading location - IP/workstation name: [email or web address]
== END ==
LOC: RAD 18:00
PROVIDERS: ATTEND Family Medicine
DX: S86.891A Other injury of other muscle(s) and tendon(s) at lower leg level, right leg, initial encounter (principal); S86.892A Other injury of other muscle(s) and tendon(s) at lower leg level, left leg, initial encounter; X58.XXXA Exposure to other specified factors, initial encounter

== ENCOUNTER → 2019-09-09 | Outpatient (CLI) | payer OTHER ==
--- NOTE | 2019-09-10 12:42 | XCELERA REPORT ---
[address] [address] Tel: [phone] Fax: [phone] Lower Extremity Arterial Evaluation Name: KYLER SOSA Age: 33 yrs Gender: Female : 1985 Patient Status: Outpatient Patient Location: Study Date: 09/09/2019 02:06 PM Procedure: Ankle brachial indicies performed. Reason For Study: PAIN Ordering Physician: [facility] Performed By: Shola Norton Right Side Arterial Evaluation SANDRA in Posterior Tibial:1.10. Multiphasic waveform. Left Side Arterial Evaluation SANDRA in Posterior Tibial:1.02. Multiphasic waveform. Interpretation Summary Normal SANDRA's . Suggesting no significant arterial obstructive disease, within the limitations of this technique. : [facility] > Gaston Cutler
== END ==
LOC: SP 13:43
DX: M79.661 Pain in right lower leg (principal)
CPT/HCPCS: 93922

== ENCOUNTER → 2019-10-10 | Outpatient (CLI) | payer OTHER ==
--- NOTE | 2019-10-10 10:52 | RADIOLOGY REPORT (SQ) ---
EXAM DESCRIPTION: HIP LEFT AP/LATERAL COMPLETED DATE/TIME: 10/10/2019 10:38 am REASON FOR STUDY: M25.552 PAIN IN LEFT HIP M25.552 PAIN IN LEFT HIP COMPARISON: 11/28/2016 NUMBER OF VIEWS: Two views. TECHNIQUE: AP pelvis and additional frog-leg view of the left hip. LIMITATIONS: None. FINDINGS: MINERALIZATION: Normal. LEFT HIP: No fracture or dislocation. No worrisome bone lesions. RIGHT HIP: No fracture or dislocation. No worrisome bone lesions. PUBIS AND ISCHIUM: No fracture. SACRUM: No fracture or dislocation. No worrisome bone lesions. LOWER LUMBAR SPINE: No fracture or dislocation. No worrisome bone lesions. No significant disc disea se. SOFT TISSUES: No findings. OTHER: Metallic clips overlie the pelvis, stable. IMPRESSION: NEGATIVE STUDY OF THE LEFT HIP AND PELVIS. NO RADIOGRAPHIC EVIDENCE OF ACUTE INJURY. TECHNICAL DOCUMENTATION: JOB ID: [id number] [employer]- All Rights Reserved Reading location - IP/workstation name: [email or web address]
== END ==
LOC: RAD 10:00
PROVIDERS: ATTEND Family Medicine
DX: M25.552 Pain in left hip (principal)

== ENCOUNTER 2019-10-14 12:16 | Emergency (ER) | payer OTHER | END 2019-10-14 12:34 | disposition left against medical advice (07) | LOC: ER 12:16 | DX: Z53.21 Procedure and treatment not carried out due to patient leaving prior to being seen by health care provider (principal) ==

== ENCOUNTER 2019-10-16 08:25 | Emergency (ER) | payer OTHER ==
[2019-10-16] MEDS ORDERED: DEXAMETHASONE SOD PHOS INJ 10 MG/1 ML VIAL IM ONE (09:21)
[2019-10-16] MEDS ORDERED: ACETAMINOPHEN 325 MG TABLET PO ONE (09:22)
[2019-10-16] MEDS ORDERED: LIDOCAINE 5% (700 MG) TRANSDERMAL ADH..PATCH TP ONE (09:22)
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
--- NOTE | 2019-10-16 10:03 | RADIOLOGY REPORT (SQ) ---
EXAM DESCRIPTION: T SPINE AP/LAT COMPLETED DATE/TIME: 10/16/2019 9:52 am REASON FOR STUDY: mid back pain s/p injury COMPARISON: None. NUMBER OF VIEWS: Two views. TECHNIQUE: AP and lateral radiographic images acquired of the thoracic spine. LIMITATIONS: None. FINDINGS: MINERALIZATION: Normal. ALIGNMENT: Normal. No scoliosis. VERTEBRAE: No fracture or bone lesion. Maintained height, normal segmentation. DISCS: No significant loss of height or significant narrowing. No large osteophytes. HARDWARE: None in the spine. MEDIASTINUM AND SOFT TISSUES: Normal heart size and aortic contour. No soft tissue abnormality. VISUALIZED LUNG TANG: Clear. OTHER: No other significant finding. IMPRESSION: NO SIGNIFICANT RADIOGRAPHIC FINDING IN THE THORACIC SPINE. TECHNICAL DOCUMENTATION: JOB ID: [id number] 2010 [employer]- All Rights Reserved Reading location - IP/workstation name: [email or web address]
[2019-10-16 10:24] VITALS: BP 115/65
== END 2019-10-16 10:24 | disposition home or self-care (01) ==
LOC: ER 08:25
DX: M54.6 Pain in thoracic spine (principal); R25.2 Cramp and spasm; F17.200 Nicotine dependence, unspecified, uncomplicated
CPT/HCPCS: 72070; J1100

== ENCOUNTER 2019-11-11 08:58 | Emergency (ER) | payer SELFPAY ==
[2019-11-11 09:04] VITALS: BP 117/49
--- NOTE | 2019-11-11 09:28 | ER Document Report ---
HPI - HPI Patient complains to provider of: Sore throat cough Time Seen by Provider: 11/11/19 09:22 Onset: Other - 4 days ago Onset/Duration: Persistent Pain Level: 1 Context: 34-year-old female with history of asthma presents emergency department with complaints of sore throat cold symptoms for the past 4 days. Denies fever vomiting diarrhea reports that she is eating drinking voiding bowel movement is normal. Reports a nonproductive cough. Reports since she has been sick for the past 4 days she has had to cut down on her smoking. - EENT EENT: REPORTS: Sore Throat, Ear Pain - RESPIRATORY Respiratory: REPORTS: Coughing - REPRODUCTIVE Reproductive: DENIES: : Past Medical History - General Information source: Patient Last Menstrual Period: November - Social History Smoking Status: Current Every Day Smoker Cigarette use (# per day): Yes Frequency of alcohol use: None Drug Abuse: None Family History: Reviewed & Not Pertinent Patient has suicidal ideation: No Patient has homicidal ideation: No Pulmonary Medical History: Reports: Hx Asthma - as a child Neurological Medical History: Reports: Hx Migraine Renal/ Medical History: Denies: Hx Peritoneal Dialysis Musculoskeletal Medical History: 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 Denies: Hx Pacemaker - Immunizations Hx Diphtheria, Pertussis, Tetanus Vaccination: Yes Vertical Provider Document - CONSTITUTIONAL Agree With Documented VS: Yes Exam Limitations: No Limitations General Appearance: WD/WN, No Apparent Distress - INFECTION CONTROL TRAVEL OUTSIDE OF THE [place] IN LAST 30 DAYS: No - HEENT HEENT: Atraumatic, Normocephalic, Pharyngeal Erythema - Good airway opens mouth wide no trismus no tonsillar exudate. negative: Conjuctival Injection, Pharyngeal Exudate, Tympanic Membrane Red, Tympanic Membrane Bulging - NECK Neck: Normal Inspection, Supple. negative: Lymphadenopathy-Left, Lymphadenopathy-Right - RESPIRATORY Respiratory: Breath Sounds Normal, No Respiratory Distress. negative: Wheezing - CARDIOVASCULAR Cardiovascular: Regular Rate - GI/ABDOMEN Gastrointestinal: Abdomen Soft, Abdomen Non-Tender - MUSCULOSKELETAL/EXTREMETIES Musculoskeletal/Extremeties: MAEW, FROM - NEURO Level of Consciousness: Awake, Alert, Appropriate Motor/Sensory: No Motor Deficit - DERM Integumentary: Warm, Dry Course - Re-evaluation Re-evalutation: 11/11/19 09:57 34-year-old female presents with sore throat cold symptoms for the past 4 days. Denies recent strep exposure. Denies fever vomiting diarrhea. Patient speaking with a clear voice respiratory rate even nonlabored. She was instructed on negative strep test with throat culture pending. She was instructed on the importance of good handwashing push fluids follow-up with her provider. She verbalized understanding to all instructions. Laboratory 11/11/19 09:27 Group A Strep Rapid NEGATIVE - Vital Signs Vital signs: Temp Pulse Resp BP Pulse Ox 98.5 F 77 18 117/49 L 99 11/11/19 09:03 11/11/19 09:03 11/11/19 09:03 11/11/19 09:03 11/11/19 09:03 Discharge - Discharge Clinical Impression: Sorethroat Condition: Stable Disposition: HOME, SELF-CARE Instructions: Sore Throat ([facility]) Additional Instructions: *You have been evaluated for a sore throat *Your strep test was negative. A throat culture is pending. Should you need antibiotics you will be contacted in 3 to 4 days *In the meantime gargle with warm salt water and suck on throat lozenges for comfort *Monitor your temperature, take Tylenol or ibuprofen as indicated *Do not let anyone drink/eat after you *Good hand washing *Follow-up with a primary care provider within 1 week for concerns *Return to ED for worsening condition change, needs,, concerns, difficulty swallowing Referrals: [facility] [NO LOCAL MD] - Follow up in 3-5 days
== END 2019-11-11 10:00 | disposition home or self-care (01) ==
LOC: ER 08:58
DX: J02.9 Acute pharyngitis, unspecified (principal); R05 Cough; H92.09 Otalgia, unspecified ear; F17.210 Nicotine dependence, cigarettes, uncomplicated
CPT/HCPCS: 87070; 87880; 99283

== ENCOUNTER 2019-12-17 08:01 | Emergency (ER) | payer OTHER ==
[2019-12-17 08:05] VITALS: BP 127/73
--- NOTE | 2019-12-17 08:27 | ER Document Report ---
HPI - HPI Time Seen by Provider: 12/17/19 08:08 Pain Level: 4 Context: Patient is a 34-year-old female with a history of a lumbar laminectomy who presents the emergency department with the chief complaint of low back pain. She states that her pain started 4 days ago. Radiates down both legs. States it is in the area of her low back where she had her laminectomy. Patient states that she has been using Tylenol and Aspercreme with lidocaine with little relief. She has not seen her spinal surgeon or primary care provider in regards to this issue. Denies any IV drug abuse or history of IV drug abuse, loss of bladder or bowel function, or inability to walk. - ROS Systems Reviewed and Negative: Yes All other systems reviewed and negative - CONSTITUTIONAL Constitutional: DENIES: Fever - EENT EENT: DENIES: Sore Throat, Ear Pain - CARDIOVASCULAR Cardiovascular: DENIES: Chest pain - RESPIRATORY Respiratory: DENIES: Trouble Breathing, Coughing - GASTROINTESTINAL Gastrointestinal: DENIES: Abdominal Pain, Nausea, Patient vomiting, Diarrhea - REPRODUCTIVE Reproductive: DENIES: : - MUSCULOSKELETAL Musculoskeletal: REPORTS: Extremity pain - bilateral LE, Back Pain - bilateral low back. DENIES: Neck Pain, Swelling - DERM Skin Color: Normal Skin Problems: None Past Medical History - Social History Smoking Status: Current Every Day Smoker Frequency of alcohol use: None Drug Abuse: None Family History: Reviewed & Not Pertinent Patient has suicidal ideation: No Patient has homicidal ideation: No - Past Medical History Cardiac Medical History: Reports: Hx Hypertension Pulmonary Medical History: Reports: Hx Asthma - as a child Neurological Medical History: Reports: Hx Migraine Renal/ Medical History: Denies: Hx Peritoneal Dialysis Musculoskeletal Medical History: 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 Denies: Hx Pacemaker - Immunizations Hx Diphtheria, Pertussis, Tetanus Vaccination: Yes Vertical Provider Document - CONSTITUTIONAL Agree With Documented VS: Yes Exam Limitations: No Limitations General Appearance: No Apparent Distress - INFECTION CONTROL TRAVEL OUTSIDE OF THE [place] IN LAST 30 DAYS: No - HEENT HEENT: Atraumatic, Normocephalic, PERRLA - NECK Neck: Normal Inspection - RESPIRATORY Respiratory: Breath Sounds Normal, No Respiratory Distress - CARDIOVASCULAR Cardiovascular: Regular Rate, Regular Rhythm Pulses: Normal: Radial - MUSCULOSKELETAL/EXTREMETIES Musculoskeletal/Extremeties: FROM, Tender - bilateral low back, No Edema - NEURO Level of Consciousness: Awake, Alert, Appropriate Motor/Sensory: No Motor Deficit, No Sensory Deficit Deep Tendon Reflexes: 2+ - DERM Integumentary: Warm, Dry, No Rash Course - Re-evaluation Re-evalutation: 12/17/19 08:24 Differential diagnosis for back pain includes muscle spasm, muscle strain, slipped disc cauda equina syndrome, vertebral fracture, vertebral tumor, epidural abscess, pyelonephritis, or AAA. Based on history and exam, the most likely etiology of the patient's back pain is acute on chronic sciatic nerve pain. Emergent MRI is not indicated at this time because the patient does not have new weakness, or cauda equina syndrome. Patient does not have new bladder or bowel dysfunction. Patient does not have history of IV drug use, therefore, I do not suspect an epidural abscess. Patient does not have recent weight loss or night sweats, and does not have a known history of cancer. - Vital Signs Vital signs: Temp Pulse Resp BP Pulse Ox 97.5 F 73 18 127/73 H 99 12/17/19 08:05 12/17/19 08:05 12/17/19 08:05 12/17/19 08:05 12/17/19 08:05 Discharge - Discharge Clinical Impression: Back pain Qualifiers: Back pain location: low back pain Chronicity: chronic Back pain laterality: bilateral Sciatica presence: with sciatica Sciatica laterality: bilateral sciatica Qualified Code(s): M54.42 - Lumbago with sciatica, left side Condition: Stable Disposition: HOME, SELF-CARE Instructions: Low Back Pain ([facility]), Pain Medication Injection ([facility]) Additional Instructions: You were seen today in the emergency department for back pain. Your back pain is most consistent with sciatic nerve pain. You may take acetaminophen 1000 mg every 6 hours as needed for the pain. You may also buy [id number] Aspercreme with lidocaine and apply to the area per box instructions. Take Robaxin as needed. If you develop a fever greater than 100.4 F, lose bowel or bladder function, are unable to walk, or have any symptoms that are worrisome to you, please return to the emergency department. Follow-up with your back surgeon in the next 3 to 5 days. Prescriptions: Methocarbamol [Robaxin 500 mg Tablet] 500 mg PO BID PRN #20 tablet PRN Reason: Referrals: [facility] [Provider Group] - Follow up in 3-5 days
[2019-12-17] MEDS ORDERED: DEXAMETHASONE SOD PHOS INJ 10 MG/1 ML VIAL IM ONE (08:31)
[2019-12-17] MEDS ORDERED: KETOROLAC TROMETHAMINE 60 MG/2 ML SDV IM ONE (08:31)
== END 2019-12-17 09:14 | disposition home or self-care (01) ==
LOC: ER 08:01
DX: M54.42 Lumbago with sciatica, left side (principal); M79.604 Pain in right leg; M79.605 Pain in left leg; Z98.890 Other specified postprocedural states; Z79.899 Other long term (current) drug therapy; F17.200 Nicotine dependence, unspecified, uncomplicated; I10 Essential (primary) hypertension; J45.909 Unspecified asthma, uncomplicated
CPT/HCPCS: 99283; 96372; J1885; J1100